=== PATIENT | female | born 1950 | race Caucasian/White ===

== ENCOUNTER 2018-12-13 01:25 | Outpatient (CLI) | payer MEDICARE, SELFPAY ==
[2018-12-13 12:45] LABS: Bilirubin Negative (Negative); Blood Negative (Negative); Clarity Clear (Clear); Glucose Negative (Negative); Ketones Negative (Negative); Leukocyte Esterase Negative (Negative); Nitrite Negative (Negative); Specific Gravity 1.025 (1.005-1.025); Urobilinogen 0.2 EU/dL (Up TO 0.2); pH 5.5 (5-8)
[2018-12-13 14:36] LABS: Hemoglobin A1C 6.6 % (4.5-6.2)
== END 2018-12-13 01:45 ==
DX: E11.9 Type 2 diabetes mellitus without complications (principal); R35.0 Frequency of micturition
CPT/HCPCS: 36415; 81003; 83036

== ENCOUNTER 2018-12-21 07:59 | Outpatient (CLI) | payer MEDICARE, SELFPAY ==
[2018-12-21 15:54] LABS: Abs Immature Grans 0.02 k/cumm (0.0-0.09); Absolute Basophil Count 0.03 k/cumm (0.0-0.2); Absolute Eosinophil Count 0.27 k/cumm (0.0-0.7); Absolute Lymphocyte Count 2.17 k/cumm (1.2-3.4); Absolute Monocyte Count 0.39 k/cumm (0.11-0.7); Absolute Neutrophil Count 5.35 k/cumm (1.2-6.7); Basophils % 0.4; Eosinophils % 3.3; HCT 35.2 % (36.0-46.0); HGB 12.6 g/dL (12.0-15.5); Immature Grans % 0.2; Lymphocytes % 26.4; Mean Corp. HGB Concentration 35.8 g/dL (32.0-36.0); Mean Corpuscular Hemoglobin 30.7 pg (27.0-33.0); Mean Corpuscular Volume 85.6 fL (80-95); Mean Platelet Volume 9.9 fL (8.0-11.0); Monocytes % 4.7; Platelet Count 194 x1000/uL (130-400); RBC 4.11 m/cumm (4.00-5.20); RBC Distribution Width 12.4 % (11.7-14.6); White Blood Cell Count 8.23 k/cumm (4.4-10.8)
[2018-12-21 16:25] LABS: ALT 32 U/L (12-78); AST 27 U/L (15-37); Albumin 3.6 g/dL (3.4-5.0); Alkaline Phosphatase 92 U/L (46-116); Anion Gap 10.2 mmol/L (3-11); BUN 13 mg/dL (7-18); Bilirubin, Total 0.4 mg/dL (0.2-1.0); CO2 26.8 mmol/L (21.0-32.0); CREATININE 1.01 mg/dL (0.55-1.02); Calcium 9.4 mg/dL (8.5-10.1); Chloride 103 mmol/L (98-107); Estimated GFR 54.84 (mL/min/1.73m2); Glucose 218 mg/dL (70-100); Potassium 4.6 mmol/L (3.5-5.1); Sodium 140 mmol/L (136-145); Total Protein 6.7 g/dL (6.4-8.2)
== END 2018-12-21 08:19 ==
DX: Z87.442 Personal history of urinary calculi (principal); I10 Essential (primary) hypertension; N23 Unspecified renal colic; E11.9 Type 2 diabetes mellitus without complications
CPT/HCPCS: 36415; 80053; 85025

== ENCOUNTER 2019-01-25 01:35 | Outpatient (CLI) | payer MEDICARE, SELFPAY ==
--- NOTE | 2019-01-25 08:06 | DI.US_ITS ---
SYMPTOM/DIAGNOSIS: RULE OUT GALLBLADDER ISSUES R10.11, RUQ PAIN ABDOMEN ULTRASOUND: Comparison is made with 19 Jun 2012. The liver again shows mild fatty infiltration. No focal liver lesions or biliary dilatation was seen. The gallbladder has a normal appearance without evidence of stones or wall thickening. The spleen, kidneys, pancreas and aorta are unremarkable. No ascites is seen. IMPRESSION: Mild fatty infiltration of the liver. No gallbladder abnormality is seen.
[2019-01-25 08:41] LABS: Abs Immature Grans 0.02 k/cumm (0.0-0.09); Absolute Basophil Count 0.02 k/cumm (0.0-0.2); Absolute Eosinophil Count 0.23 k/cumm (0.0-0.7); Absolute Lymphocyte Count 1.63 k/cumm (1.2-3.4); Absolute Monocyte Count 0.34 k/cumm (0.11-0.7); Basophils % 0.3; Eosinophils % 2.9; HGB 12.9 g/dL (12.0-15.5); Immature Grans % 0.3; Lymphocytes % 20.5; Mean Corp. HGB Concentration 35.8 g/dL (32.0-36.0); Mean Corpuscular Hemoglobin 30.6 pg (27.0-33.0); Mean Corpuscular Volume 85.5 fL (80-95); Mean Platelet Volume 9.3 fL (8.0-11.0); Monocytes % 4.3; Neutrophils % 71.7; Platelet Count 193 x1000/uL (130-400); RBC 4.21 m/cumm (4.00-5.20); RBC Distribution Width 12.2 % (11.7-14.6); White Blood Cell Count 7.94 k/cumm (4.4-10.8)
[2019-01-25 10:50] LABS: ALT 27 U/L (14-59); AST 25 U/L (15-37); Albumin 3.7 g/dL (3.4-5.0); Alkaline Phosphatase 82 U/L (46-116); BUN 11 mg/dL (7-18); Bilirubin, Total 0.7 mg/dL (0.2-1.0); CREATININE 0.95 mg/dL (0.55-1.02); Calcium 9.2 mg/dL (8.5-10.1); Chloride 103 mmol/L (98-107); Estimated GFR 58.85 (mL/min/1.73m2); Glucose 192 mg/dL (70-100); Potassium 4.8 mmol/L (3.5-5.1); Sodium 141 mmol/L (136-145); Total Protein 6.6 g/dL (6.4-8.2)
== END 2019-01-25 01:55 ==
DX: R10.11 Right upper quadrant pain (principal); K76.0 Fatty (change of) liver, not elsewhere classified; E03.9 Hypothyroidism, unspecified
CPT/HCPCS: 36415; 80053; 76700; 85025

== ENCOUNTER 2019-12-07 19:17 | Emergency (ER) | payer MEDICARE, SELFPAY ==
[2019-12-07 19:24] VITALS: BP 170/67; PULSE 78; RESP 16; TEMP 36.5; O2SAT 98
--- NOTE | 2019-12-07 19:30 | DI.CT_ITS ---
EXAM: CT HEAD CERV SPINE FACIAL WO CLINICAL HISTORY: FALL, DIZZY, LEFT JAW AND NASAL PAIN, R/O FX. TECHNIQUE: Imaging Protocol: Axial computed tomography images with coronal and sagittal reformatted images were created and reviewed COMPARISON: CR LUMBAR SPINE COMPLETE from 06/25/2014 CR RT HIP COMPLETE AP PELVIS from 11/28/2014 FINDINGS: Head CT Ventricles and Extra axial spaces: Normal in size and morphology for the patient's age. Mild to moder ate atrophy. Hemorrhage: None. Cerebral parenchyma: Normal. Midline shift: None. Brainstem/Cerebellum: Normal. Calvarium: Normal. Mild frontal scalp soft tissue swelling. Visualized Paranasal sinuses/Mastoids: Clear. Cervical Spine CT BONES: Vertebral body heights are maintained. Intervertebral disc spaces are normal. Alignment is nor mal. There is no evidence of acute fracture. SOFT TISSUES: No paraspinal hematoma. The airway appears intact. Degenerative disc changes and facet degenerative changes are seen. Facial CT No facial fracture is identified. IMPRESSION: No acute abnormality. RADIATION DOSE DELIVERED: Total DLP DATA REPOSITORY: All CT scans at this facility are submitted to the National Radiology Data Registry (NRDR) Dose Index Registry (DIR) with the [employer] (ACR). RADIATION OPTIMIZATION: All CT scans at this facility use at least one of these dose optimization te chniques: automated exposure control; mA and/or kV adjustment per patient size (includes targeted exa ms where dose is matched to clinical indication); or iterative reconstruction.
--- NOTE | 2019-12-07 19:44 | W.ED.GENAD ---
Discharge Plan Disposition Patient Disposition: HOME Discharge Details Chief Complaint: Trauma Clinical Impression: Closed head injury, Acute whiplash injury Primary Care Provider: Tangela Erazo ED Provider: Kendy Tao Home Meds and New Rx's Prescriptions: Continued Lantus Solostar U-100 Insulin 100 unit/mL (3 mL) insulin pen 18 unit subcut HS Qty: 3 RF: 3 (DME) lancets [FreeStyle Lancets] 28 gauge misc 1 ea Sub-Q TID Qty: 300 RF: 3 glipizide [Glucotrol] 10 mg tablet 5 mg PO BID Qty: 180 RF: 4 (DME) FreeStyle Lite Strips 1 EACH strip 1 ea Miscellaneous TID Qty: 300 RF: 4 gabapentin 300 MG capsule 300 mg PO HS PRNQty: 90 RF: 1 (DME) blood-glucose meter [FreeStyle Lite Meter] 1 EACH kit 1 ea Miscellaneous DIRECTED Qty: 1 RF: 0 (DME) pen needle, diabetic 31 gauge x 1/3 needle 1 ndl Sub-Q DAILY Qty: 100 RF: 4 escitalopram oxalate 20 mg tablet 20 mg PO DAILY Qty: 90 RF: 3 escitalopram oxalate 10 mg tablet 10 mg PO DAILY Qty: 90 RF: 3 ibuprofen 800 mg tablet 800 mg PO BID prn Qty: 100 RF: 4 lamotrigine 100 mg tablet 100 mg PO DAILY Qty: 90 RF: 4 lamotrigine 50 mg tablet extended release 24hr 50 mg PO DAILY Qty: 90 RF: 4 metformin 1,000 mg tablet 1,000 mg PO BID Qty: 240 RF: 12 tramadol 50 mg tablet 50 mg PO Q6H PRN Qty: 60 RF: 0 losartan 100 mg tablet 100 mg PO DAILY Qty: 90 RF: 3 Discharge Instructions Instructions: Head Injury (ED), Cervical Sprain (ED) Additional Instructions: Take your gabapentin and tramadol as previously prescribed when you get home. You will be sore for the next 2 to 3 days. Return immediately to the ER for any worsening headache, visual disturbance, pain not relieved by medications, confusion, weakness numbness in your face or weakness on one side of your body. Follow up with primary care provider in 3-5 days. Return to ED sooner if any worsening or concerns. Increase oral fluids. Please take Tylenol or Ibuprofen with food every 4-6 hours as needed for pain and swelling. Alternate ice and heat to shoulders. CT of your neck at this time show degenerative changes. Referrals: Tangela Erazo NP [Primary Care Provider] - Discharge Data Discharge Date/Time-TO BE ENTERED AT DEPARTURE: 12/07/19 21:45 Medical Decision Making At this time CT head neck and facial bones ordered without contrast to rule out fracture versus intracranial mass hemorrhage, Zofran 4 mg ODT and 5 mg Tylenol p.o. ordered. TECHNIQUE: Imaging protocol: Computed tomography images of the face without contrast. COMPARISON: No relevant prior studies available. FINDINGS: Orbits: Orbits are normal. Globes are unremarkable. Bones/joints: No acute fracture. Sinuses: Normal. No air-fluid levels. Soft tissues: Mild frontal scalp soft tissue swelling partially visualized. IMPRESSION: 1. Mild frontal scalp soft tissue swelling partially visualized. 2. Negative for acute skeletal pathology. Thank you for allowing us to participate in the care of your patient. Dictated and Authenticated by: Chris Lee MD 12/07/2019 9:09 PM Eastern Time ([place] & [place]) CT C-spine shows multilevel degenerative changes of the vertebra present endplate sclerosis and multilevel posterior disc osteophyte complexes no acute bleed displaced fracture or dislocation. Impression is negative for acute skeletal pathology. Discussed CT results with patient, verbalized understanding. She is still complaining of mild to moderate headache at this time she does take tramadol gabapentin at home encouraged her to take that when she gets home for the pain and her muscle relaxant. At this time I do feel it is mostly whiplash and mild concussion. Discussed strict return instructions and red flags with patient, verbalized understanding. HPI General Mode of arrival: ambulatory. Date/Time Provider Initiated Documentation: 12/07/19 19:33. Limitations to Documentation: no limitations. Information obtained by: patient. HPI Narrative: 69-year-old female presents to the ER with a chief complaint of head and neck pain after a mechanical fall which occurred proximately 1 hour prior to arrival. Patient was walking [place] tripped on a rock fell forward hitting her head on another rock. She denies any loss of consciousness on the scene. She did sit there for a while with ice on her head. Upon her presentation she is complaining of nausea, mild dizziness, increased pain to her head with position changes, left jaw pain, left zygomatic process pain, and nasal tenderness with palpation. No obvious facial deformities spelt or visualized.. She does have a superficial abrasion noted to her frontal scalp, small superficial abrasion noted to her left cheek, and a small superficial abrasion noted to her left lower forearm. She reports her pain 5 out of 10 currently. No vomiting. Pupils are equal bilaterally. Related Data Home Medications Medication Instructions Recorded Confirmed FreeStyle Lite Strips #300 strip 03/15/15 03/19/19 gabapentin 300 mg PO HS PRN #90 tab-cap 01/02/17 03/19/19 blood-glucose meter [FreeStyle #1 kit 06/01/17 03/19/19 Lite Meter] insulin glargine 100 unit/mL (3 18 unit SUBCUT HS #3 pen 05/21/18 03/19/19 mL) subcutaneous pen lancets 28 gauge #300 ea 05/21/18 03/19/19 pen needle, diabetic 31 gauge x #100 ndl 06/15/18 03/19/1905/17 escitalopram oxalate 10 mg tablet 10 mg PO DAILY #90 tab 09/13/18 03/19/19 escitalopram oxalate 20 mg tablet 20 mg PO DAILY #90 tab 09/13/18 03/19/19 ibuprofen 800 mg tablet 800 mg PO BID prn #100 tab-cap 11/07/18 03/19/19 glipizide 10 mg tablet 5 mg PO BID #180 tab 06/04/19 06/04/19 lamotrigine 100 mg tablet 100 mg PO DAILY #90 tab-cap 08/28/19 lamotrigine 50 mg tablet,extended 50 mg PO DAILY #90 tab 08/28/19 release 24 hr metformin 1,000 mg tablet 1,000 mg PO BID #240 tab 09/30/19 tramadol 50 mg tablet 50 mg PO Q6H PRN #60 tab-cap 11/05/19 losartan 100 mg tablet 100 mg PO DAILY #90 tab-cap 11/28/19 Previous Rx's Medication Instructions Recorded blood-glucose meter [FreeStyle #1 kit 06/01/17 Lite Meter] insulin glargine 100 unit/mL (3 18 unit SUBCUT HS #3 pen 05/21/18 mL) subcutaneous pen lancets 28 gauge #300 ea 05/21/18 pen needle, diabetic 31 gauge x #100 ndl 06/15/1805/17 escitalopram oxalate 10 mg tablet 10 mg PO DAILY #90 tab 09/13/18 escitalopram oxalate 20 mg tablet 20 mg PO DAILY #90 tab 09/13/18 ibuprofen 800 mg tablet 800 mg PO BID prn #100 tab-cap 11/07/18 glipizide 10 mg tablet 5 mg PO BID #180 tab 06/04/19 lamotrigine 100 mg tablet 100 mg PO DAILY #90 tab-cap 08/28/19 lamotrigine 50 mg tablet,extended 50 mg PO DAILY #90 tab 08/28/19 release 24 hr metformin 1,000 mg tablet 1,000 mg PO BID #240 tab 09/30/19 tramadol 50 mg tablet 50 mg PO Q6H PRN #60 tab-cap 11/05/19 losartan 100 mg tablet 100 mg PO DAILY #90 tab-cap 11/28/19 Allergies Allergy/AdvReac Type Severity Reaction Status Date / Time lisinopril AdvReac cough Verified 12/07/19 19:28 General Stated Complaint: Trauma TOBY: 3 Review of Systems Narrative: Constitutional: Negative for weight loss, alert and oriented, well groomed, normal body habitus, appears uncomfortable. HEENT: Denies nasal discharge, sore throat, trouble swallowing. Complaining of headache, nausea, mild dizziness. See HPI, complaining of left cheek nose pain. Chest: Denies chest pain, palpitations, irregular rhythm, hypertension. Respiratory: Denies Shortness of breath, cough, hemoptysis. GI: Denies abdominal pain, vomiting, diarrhea, constipation. : Denies dysuria, hematuria, flank pain, rectal bleeding. Neuro: Denies blurry vision, weakness, syncope, or facial numbness. Hematologic: Denies easy bruising, intolerance to heat or cold, hair loss. [facility] [place] Medical History Anemia, iron deficiency (Chronic 04/22/14) Chronic pain disorder (Chronic 02/06/17) CONTROLLED SUBSTANCE AGREEMENT 02/06/17 Depressive disorder (Chronic) Diabetes mellitus (Chronic 03/13/15) Essential hypertension (Chronic 03/20/13) Hernia of anterior abdominal wall (Chronic 05/23/17) Hyperlipidemia (Chronic 09/06/12) Kidney stone (Chronic) August [address] at [facility] [place]: 2 non-obstructing stone in the right kidney Knee pain (Chronic) left, DJD (08/27 [facility] [place] ortho eval, needs TKR) 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) Obesity (BMI 30-39.9) (Chronic 11/04/15) Pain of left thigh (Chronic 06/01/17) Palpitations (Chronic 11/27/14) 11/26 Holter, multiple PACs Peptic reflux disease (Chronic) Primary fibromyalgia syndrome (Chronic) fibromyalgia Right hip pain (Chronic 03/13/15) DJD, s/p THR [facility] [place] 04/28 Shoulder pain (Chronic 11/04/15) Surgical History HIP REPLACEMENT [facility] [place]; PARTIAL Hysterectomy, Laproscopic DUB; has cervix and ovaries Ligation of fallopian tube Family History Mother , AGE 82 Diabetes Essential hypertension Heart disease Hyperlipidemia Cancer Father , AGE 80 Alcohol abuse Essential hypertension Heart disease Sister , AGE 45 Breast cancer Sister , AGE 51 Colon cancer Brother Neoplasm Son Essential hypertension Maternal Grandmother Breast cancer Other Family hx of colon cancer Family hx-breast malignancy Social History Smoking/Tobacco Use Status: Never Alcohol Intake: current Alcohol Intake frequency: 0-2 drinks per day Drug use: Never Substance use type: does not use Caregiver/Support person: No Household members: spouse and children Number of Children: 3 number of grandchildren: 7 Pets and animals: Yes Pets and animals: cat(s), dog(s) and bird(s) Sexually active: No Do you think of yourself as: straight/heterosexual Current gender identity: female Duration: < 15 minutes/day Frequency: 1-2 times per week Marlin/Anabaptism: Episcopalian Special marlin needs: No Seatbelt use: always 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 Appears stated age. Normal body habitus. Head: Normocephalic, no trauma. Eyes: Pupils PERRLA, Red reflex noted, EOM's intact. Eyelids symmetrical without lesions, discharge, or swelling. ENT: Bilateral TM's WNL, no hemotympanum bilaterally, external ear normal to inspection, no mastoid TTP, swelling, or erythema, Nasal turbinates WNL, no nasal discharge no evidence of epistaxis or septal hematoma,. Normal dentition, dentition intact, posterior pharynx WNL, no exudate. Chest: RRR, Normal S1, S2, distal pulses intact. Resp: Lungs clear to auscultation bilaterally, no wheezes, rales, or rhonchi. Musculoskeletal: Normal gait, 5/5 strength to all four extremities. Skin: Has a superficial abrasion noted to the frontal scalp, small superficial abrasion noted to left cheek, small superficial abrasion noted to the left forearm. Capillary refill less than 2 sec. Neurologic: Cranial nerves II-XII intact. Alert and oriented x 3. DTR's intact. Hematologic/Lymphatic: No ecchymosis, no lymphadenopathy. Course Vital Signs Vital signs: Vital Signs Temperature 36.5 C 12/07/19 19:24 Pulse 78 12/07/19 19:24 Respiratory Rate 16 12/07/19 19:24 Blood Pressure 170/67 H 12/07/19 19:24 Pulse Oximetry 98 12/07/19 19:24 Temperature 36.5 C 12/07/19 19:24 Temperature Source Skin 12/07/19 19:24 Pulse 78 12/07/19 19:24 Respiratory Rate 16 12/07/19 19:24 Respiratory Effort Non-Labored 12/07/19 19:31 Respiratory Depth Normal 12/07/19 19:31 Respiratory Pattern Normal 12/07/19 19:31 Blood Pressure 170/67 H 12/07/19 19:24 Pulse Oximetry 98 12/07/19 19:24 Pain Level 5 12/07/19 19:31
[2019-12-07] MEDS: Ondansetron O.D.T. 4 MG TABEF PO (19:48)
[2019-12-07] MEDS: Acetaminophen 500 MG TAB PO (19:48)
--- NOTE | 2019-12-07 20:36 | DI.VRAD_ITS ---
PROCEDURE INFORMATION: Exam: CT Maxillofacial Without Contrast Exam date and time: 12/07/2019 7:44 PM Age: 69 years old Clinical indication: Injury or trauma; Fall TECHNIQUE: Imaging protocol: Computed tomography images of the face without contrast. COMPARISON: No relevant prior studies available. FINDINGS: Orbits: Orbits are normal. Globes are unremarkable. Bones/joints: No acute fracture. Sinuses: Normal. No air-fluid levels. Soft tissues: Mild frontal scalp soft tissue swelling partially visualized. IMPRESSION: 1. Mild frontal scalp soft tissue swelling partially visualized. 2. Negative for acute skeletal pathology. Dictated and Authenticated by: Chris Bender MD. Ordering:ERIKA Larry MD
[2019-12-07 21:39] VITALS: BP 125/52; PULSE 70; RESP 16; O2SAT 97
== END 2019-12-07 21:45 | disposition home or self-care (01) ==
PROVIDERS: Emergency Provider Registered Nurse Emergency
DX: S09.90XA Unspecified injury of head, initial encounter (principal); S13.4XXA Sprain of ligaments of cervical spine, initial encounter; W01.198A Fall on same level from slipping, tripping and stumbling with subsequent striking against other object, initial encounter; R51 Headache; R42 Dizziness and giddiness; E11.9 Type 2 diabetes mellitus without complications; Z79.84 Long term (current) use of oral hypoglycemic drugs; I10 Essential (primary) hypertension
CPT/HCPCS: 36416; 82962; 99284; 70450; 70486; 72125; L0172

== ENCOUNTER 2020-05-27 04:19 | Outpatient (CLI) | payer MEDICARE, SELFPAY ==
[2020-05-28 15:10] LABS: COVID-19 RT-PCR UVMMC Result Negative (Negative)
== END 2020-05-27 04:39 ==
DX: Z20.822 Contact with and (suspected) exposure to COVID-19 (principal)
CPT/HCPCS: U0003

== ENCOUNTER 2020-09-10 02:04 | Outpatient (CLI) | payer MEDICARE, SELFPAY ==
[2020-09-10 12:50] LABS: Bilirubin Negative (Negative); Blood Negative (Negative); Clarity Clear (Clear); Glucose Negative (Negative); Ketones Negative (Negative); Leukocyte Esterase Negative (Negative); Nitrite Negative (Negative); Specific Gravity 1.025 (1.005-1.025); Urobilinogen 0.2 EU/dL (Up TO 0.2)
[2020-09-10 13:00] LABS: Bacteria Negative HPF (Negative); C & S Indicated? No; Casts Negative LPF (Negative); Crystals Negative HPF (Negative); Epithelial Cells Few HPF (Negative); Hemoglobin A1C 6.9 % (<5.7); Mucus Negative (Negative); RBC 0-2 HPF (0-2)
[2020-09-10 13:03] LABS: ALT 32 U/L (14-59); AST 23 U/L (15-37); Albumin 3.8 g/dL (3.4-5.0); Alkaline Phosphatase 92 U/L (46-116); Anion Gap 9.4 mmol/L (3-11); BUN 17 mg/dL (7-18); Bilirubin, Total 0.6 mg/dL (0.2-1.0); CO2 27.6 mmol/L (21.0-32.0); Calcium 9.3 mg/dL (8.5-10.1); Calculated LDL 113 mg/dL (<100); Chloride 106 mmol/L (98-107); Cholesterol 213 mg/dL (<200); Glucose 177 mg/dL (74-106); HDL Cholesterol 83 mg/dL (40-60); Potassium 4.9 mmol/L (3.5-5.1); Sodium 143 mmol/L (136-145); Total Protein 6.8 g/dL (6.4-8.2); Triglyceride 87 mg/dL (<150)
== END 2020-09-10 02:05 | disposition home or self-care (01) ==
LOC: LOS 02:05
DX: E03.9 Hypothyroidism, unspecified (principal); E11.22 Type 2 diabetes mellitus with diabetic chronic kidney disease; E78.2 Mixed hyperlipidemia; G89.4 Chronic pain syndrome; R31.9 Hematuria, unspecified; N18.2 Chronic kidney disease, stage 2 (mild); Z79.4 Long term (current) use of insulin; M54.41 Lumbago with sciatica, right side; E66.9 Obesity, unspecified; K21.9 Gastro-esophageal reflux disease without esophagitis; I10 Essential (primary) hypertension
CPT/HCPCS: 36415; 80053; 80061; 81003; 81015; 83036

== ENCOUNTER 2020-11-04 15:02 | Outpatient (REF) | payer MEDICARE, SELFPAY ==
[2020-11-04 17:52] LABS: Abs Immature Grans 0.03 10^3/uL (0.0-0.06); Absolute Basophil Count 0.03 10^3/uL (0.0-0.2); Absolute Eosinophil Count 0.39 10^3/uL (0.0-0.7); Absolute Lymphocyte Count 1.89 10^3/uL (1.2-3.4); Absolute Monocyte Count 0.38 10^3/uL (0.1-0.8); Absolute Neutrophil Count 5.82 10^3/uL (1.2-6.7); Basophils % 0.4; Eosinophils % 4.6; HCT 37.1 % (36.0-46.0); HGB 12.8 g/dL (11.2-15.7); Immature Grans % 0.4; Lymphocytes % 22.1; MCH 30.1 pg (27.0-33.0); MCHC 34.5 % (32.0-36.0); MCV 87.3 fL (80-95); Monocytes % 4.4; Neutrophils % 68.1; Nucleated RBC 0 %; Platelet Count 210 10^3/uL (130-400); RBC 4.25 10^6/uL (3.93-5.22); RDW-SD 38.4 fL; WBC 8.54 10^3/uL (4.4-10.8)
[2020-11-04 17:57] LABS: ALT 26 U/L (14-59); AST 22 U/L (15-37); Albumin 3.8 g/dL (3.4-5.0); Alkaline Phosphatase 107 U/L (46-116); Anion Gap 10.4 mmol/L (3-11); BUN 14 mg/dL (7-18); Bilirubin, Total 0.6 mg/dL (0.2-1.0); CO2 27.6 mmol/L (21.0-32.0); Calcium 9.7 mg/dL (8.5-10.1); Chloride 103 mmol/L (98-107); Glucose 261 mg/dL (74-106); Potassium 4.9 mmol/L (3.5-5.1); Sodium 141 mmol/L (136-145); Total Protein 6.9 g/dL (6.4-8.2)
== END 2020-11-04 15:03 | disposition home or self-care (01) ==
LOC: LBN 15:02
PROVIDERS: Visit Provider Physician Assistant
DX: N39.0 Urinary tract infection, site not specified (principal); R10.31 Right lower quadrant pain
CPT/HCPCS: 80053; 85025; 87086

== ENCOUNTER 2021-02-03 18:23 | Outpatient (REF) | payer MEDICARE, SELFPAY ==
[2021-02-05 10:53] LABS: COVID-19 RT-PCR UVMMC Result Negative (Negative)
== END 2021-02-03 18:24 | disposition home or self-care (01) ==
LOC: LBN 18:23
PROVIDERS: Visit Provider Nurse Practitioner Family
DX: J02.9 Acute pharyngitis, unspecified (principal)
CPT/HCPCS: U0003; U0005; 87070

== ENCOUNTER 2021-02-26 01:08 | Outpatient (CLI) | payer MEDICARE, SELFPAY ==
[2021-02-26 12:59] LABS: Hemoglobin A1C 6.3 % (<5.7)
== END 2021-02-26 01:09 | disposition home or self-care (01) ==
LOC: LOS 01:08
DX: E11.22 Type 2 diabetes mellitus with diabetic chronic kidney disease (principal); N18.2 Chronic kidney disease, stage 2 (mild); Z79.4 Long term (current) use of insulin
CPT/HCPCS: 36415; 83036

== ENCOUNTER 2022-04-22 01:23 | Outpatient (CLI) | payer MEDICARE, SELFPAY ==
[2022-04-22 13:14] LABS: ALT 23 U/L (14-59); AST 28 U/L (15-37); Albumin 3.8 g/dL (3.4-5.0); Alkaline Phosphatase 100 U/L (46-116); Anion Gap 8.8 mmol/L (3-11); BUN 22 mg/dL (7-18); Bilirubin, Total 0.7 mg/dL (0.2-1.0); CO2 28.2 mmol/L (21.0-32.0); CREATININE 1.3 mg/dL (0.55-1.02); Calcium 10.1 mg/dL (8.5-10.1); Calculated LDL 143 mg/dL (<100); Chloride 101 mmol/L (98-107); Cholesterol 252 mg/dL (<200); Estimated GFR 44.51 (mL/min/1.73m2); Glucose 202 mg/dL (74-106); HDL Cholesterol 89 mg/dL (40-60); Potassium 4.5 mmol/L (3.5-5.1); Sodium 138 mmol/L (136-145); Total Protein 7.2 g/dL (6.4-8.2); Triglyceride 101 mg/dL (<150)
== END 2022-04-22 01:24 | disposition home or self-care (01) ==
LOC: LOS 01:23
PROVIDERS: PCP Nurse Practitioner Family
DX: E66.9 Obesity, unspecified (principal); E78.5 Hyperlipidemia, unspecified; I10 Essential (primary) hypertension
CPT/HCPCS: 36415; 80053; 80061

== ENCOUNTER 2022-08-12 06:56 | Day surgery (SDC) | payer MEDICARE, SELFPAY ==
--- NOTE | 2022-08-12 07:12 | W.PREOPHP ---
Assessment and Plan Assessment and plan (1) Nuclear age-related cataract, left eye: Status: Acute Assessment and plan: Assessment: Visually significant cataract of the left eye. Plan: Cataract extraction with lens implantation of the left eye. (2) Cortical age-related cataract, left eye: Status: Acute Assessment and plan: Assessment: Visually significant cataract of the left eye. Plan: Cataract extraction with lens implantation of the left eye. (3) Cortical age-related cataract, right eye: Status: Acute Assessment and plan: Assessment: Visually significant cataract of the right eye. Plan: Cataract extraction with lens implantation of the right eye. (4) Nuclear age-related cataract, right eye: Status: Acute Assessment and plan: Assessment: Visually significant cataract of the right eye. Plan: Cataract extraction with lens implantation of the right eye. History of Present Illness History of Present Illness Chief Complaint: Progressive decreased vision, both eyes Narrative: The patient is a 70-year-old lady with history of progressive decreased vision in both eyes at both distance and near. She can no longer wear her glasses because they do not work anymore. She is using a magnifier to read. She has significant difficulty seeing road signs and has severe glare from bright lights at night. Review of Systems All systems reviewed & are unremarkable except as noted in HPI and below PFSH All Active Problems (Updated 08/12/22 @ 07:18 by Clarence Richter MD) Nuclear age-related cataract, right eye (Acute) Cortical age-related cataract, right eye (Acute) Cortical age-related cataract, left eye (Acute) Nuclear age-related cataract, left eye (Acute) Diabetes mellitus (Chronic 03/13/15) Essential hypertension (Chronic 03/20/13) Right hip pain (Chronic 03/13/15) DJD, s/p THR [facility] [place] [place] 04/28 Primary fibromyalgia syndrome (Chronic) fibromyalgia Palpitations (Chronic 11/27/14) 11/26 Holter, multiple PACs Obesity (BMI 30-39.9) (Chronic 11/04/15) 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 pole cyst in the LEFT kidney * Echogenic foci through out both kidneys: indeterminant but may be vascular calcification *Bladder is normal Hyperlipidemia (Chronic 09/06/12) Hernia of anterior abdominal wall (Chronic 05/23/17) Family hx-breast malignancy (Chronic) Family hx of colon cancer (Chronic) Depressive disorder (Chronic) Anemia, iron deficiency (Chronic 04/22/14) Transaminasemia (Acute 04/13/02) Right upper quadrant pain (Chronic) intermittent Pilonidal cyst without abscess (Acute 04/18/13) Mucous polyp of cervix (Acute) Mild nonproliferative diabetic retinopathy (Acute 04/23/14) GERD without esophagitis (Chronic) [id number]. Off Omeprazole for months, symptoms returned. Omeprazole 20mg PRN re-started. Low back pain potentially associated with radiculopathy (Acute) Cataract (Chronic) Nuclear sclerotic cataract of right eye (Acute) Cortical cataract of right eye (Acute) Dysphagia (Acute) Epigastric abdominal pain (Acute) Medical History Chronic pain disorder (02/06/17) Pain of left thigh (06/01/17) Paronychia of great toe of left foot Peptic reflux disease Shoulder pain (11/04/15) Surgical History HIP REPLACEMENT [facility] [place] [place]; PARTIAL Hysterectomy, Laproscopic DUB; has cervix and ovaries Ligation of fallopian tube Family History Mother , AGE 82 Diabetes Essential hypertension Heart disease Hyperlipidemia Cancer Father , AGE 80 Alcohol abuse Essential hypertension Heart disease Sister , AGE 45 Breast cancer Sister , AGE 51 Colon cancer Brother , 30 Neoplasm Son Essential hypertension Maternal Grandmother , 93 Breast cancer Son No problems noted. Daughter No problems noted. Other Family hx of colon cancer Family hx-breast malignancy Social History Smoking/Tobacco Use Status: Never Second Hand Exposure: Yes Smoking risk assessment performed?: Yes Alcohol Intake: current Alcohol Intake frequency: holidays/special occasions only Drug use: Never Substance use type: does not use Counseling given: No Counseling provided: none Caregiver/Support person: No Household members: significant other Housing: house Number of Children: 3 number of grandchildren: 7 Communication Needs: None Do you need help understanding health information?: Rarely Pets and animals: Yes Pets and animals: cat(s) and dog(s) Sexually active: No Do you think of yourself as: straight/heterosexual Current gender identity: female What is your relationship status?: How often do you talk on the phone with friends or family?: three or more times per week How often do you get together with friends or relatives?: decline to answer How often do you attend judaism or taoist services?: decline to answer Do you belong to any clubs or organized social groups?: no Panel score (0-1 are the most socially isolated patients): 2 What type of physical activity do you participate in: decline to answer Duration: decline to answer Frequency: decline to answer Marlin/Jewish: No preference Special marlin needs: No Seatbelt use: always Helmet use: No Drive intox or 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 Working smoke detector in home: Yes Carbon monox detector in home: Yes Firearms in home: Yes Firearms unloaded and locked: Yes Do you feel safe at home: Yes Do you feel safe in your relationship?: Yes Meds Allergies and Home Medications Allergies Allergy/AdvReac Type Severity Reaction Status Date / Time lisinopril AdvReac cough Verified 08/12/22 07:13 Home Medications Medication Instructions Recorded Confirmed Type gabapentin 300 mg capsule 300 mg PO HS PRN #90 tab-caps 01/02/17 08/11/22 History blood-glucose meter (FreeStyle ##1 06/01/17 08/11/22 Rx Lite Meter kit) pen needle, diabetic 31 gauge x ##100 06/15/18 08/11/22 Rx 1/3 cyclobenzaprine 5 mg tablet 5 mg PO QHS PRN muscle spasm #60 01/12/22 08/11/22 Rx tabs blood sugar diagnostic (FreeStyle #300 strips 03/25/22 08/11/22 Rx Lite Strips) duloxetine 60 mg capsule,delayed 60 mg PO DAILY #90 caps 03/25/22 08/12/22 Rx release escitalopram oxalate 20 mg tablet 20 mg PO DAILY #90 tabs 03/25/22 08/12/22 Rx glipizide 10 mg tablet 5 mg PO BID #180 tabs 03/25/22 08/12/22 Rx ibuprofen 800 mg tablet 800 mg PO BID prn #100 tab-caps 03/25/22 08/11/22 Rx insulin glargine 100 unit/mL (3 18 unit (0.18 mL) subcut HS #3 pens 03/25/22 08/12/22 Rx mL) subcutaneous pen (Lantus Solostar U-100 Insulin) lancets 28 gauge (FreeStyle #300 ea 03/25/22 08/11/22 Rx Lancets) losartan 100 mg tablet 100 mg PO DAILY #90 tab-caps 03/25/22 08/12/22 Rx lamotrigine 100 mg tablet 100 mg PO DAILY #90 tab-caps 03/26/22 08/12/22 Rx lamotrigine 50 mg tablet,extended 50 mg PO DAILY #90 tabs 03/26/22 08/12/22 Rx release 24 hr tramadol 50 mg tablet 50 mg PO Q6H PRN pain #28 tab-caps 05/13/22 08/12/22 Rx amlodipine 5 mg tablet 5 mg PO DAILY #90 tabs 05/30/22 08/12/22 Rx rosuvastatin 10 mg tablet (Crestor) 10 mg PO DAILY #90 tabs 05/30/22 08/12/22 Rx metformin 1,000 mg tablet 1,000 mg PO BID Diabetes #180 tabs 06/15/22 08/12/22 Rx omeprazole 20 mg capsule,delayed 20 mg PO BID PRN heartburn #90 caps 07/05/22 08/12/22 Rx release Exam Eyes Other: Most recent ocular examination revealed uncorrected visual acuity of 20/50 OD, 20/40 OS. Pupil exam was normal. Intraocular pressure was 16 OD, 16 OS. Extraocular motility is normal. Slit-lamp examination is significant for pupils dilating to 7 mm OU. 2+ nuclear and 2+ cortical cataract are present OU. Funduscopic examination reveals disc cupping of 0.2 OU with normal vessels, macula, peripheral retina and vitreous. Cardio Rate: regular rate Rhythm: regular rhythm
[2022-08-12 07:17] VITALS: BP 155/74; PULSE 85; RESP 16; TEMP 36.4; O2SAT 99
[2022-08-12] MEDS: Tropicam./Phenyleph. (1/2.5%) 5 ML BTL OS ×3 (07:24→07:35)
--- NOTE | 2022-08-12 07:33 | W.ANESPRE ---
General Info Date of Service Date Performed: 08/12/22 Height: 5 ft 4 in Weight: 91.4 kg Body Mass Index (BMI): 34.5 Surgical Procedure: Operation Date: 08/12/22 08:40 Proposed Procedure Side Surgeon p Cataract Extraction with IOL Implant Left Clarence Richter MD Meds Allergies and Home Medications Allergies Allergy/AdvReac Type Severity Reaction Status Date / Time lisinopril AdvReac cough Verified 08/12/22 07:13 Home Medication Medication Instructions Recorded gabapentin 300 mg capsule 300 mg PO HS PRN #90 tab-caps 01/02/17 blood-glucose meter (FreeStyle ##1 06/01/17 Lite Meter kit) pen needle, diabetic 31 gauge x ##100 06/15/1805/17 cyclobenzaprine 5 mg tablet 5 mg PO QHS PRN muscle spasm #60 01/12/22 tabs blood sugar diagnostic (FreeStyle #300 strips 03/25/22 Lite Strips) duloxetine 60 mg capsule,delayed 60 mg PO DAILY #90 caps 03/25/22 release escitalopram oxalate 20 mg tablet 20 mg PO DAILY #90 tabs 03/25/22 glipizide 10 mg tablet 5 mg PO BID #180 tabs 03/25/22 ibuprofen 800 mg tablet 800 mg PO BID prn #100 tab-caps 03/25/22 insulin glargine 100 unit/mL (3 18 unit (0.18 mL) subcut HS #3 pens 03/25/22 mL) subcutaneous pen (Lantus Solostar U-100 Insulin) lancets 28 gauge (FreeStyle #300 ea 03/25/22 Lancets) losartan 100 mg tablet 100 mg PO DAILY #90 tab-caps 03/25/22 lamotrigine 100 mg tablet 100 mg PO DAILY #90 tab-caps 03/26/22 lamotrigine 50 mg tablet,extended 50 mg PO DAILY #90 tabs 03/26/22 release 24 hr tramadol 50 mg tablet 50 mg PO Q6H PRN pain #28 tab-caps 05/13/22 amlodipine 5 mg tablet 5 mg PO DAILY #90 tabs 05/30/22 rosuvastatin 10 mg tablet (Crestor) 10 mg PO DAILY #90 tabs 05/30/22 metformin 1,000 mg tablet 1,000 mg PO BID Diabetes #180 tabs 06/15/22 omeprazole 20 mg capsule,delayed 20 mg PO BID PRN heartburn #90 caps 07/05/22 release Current Visit Medications: Current Medications Generic Name Dose Route Start Last Admin Trade Name Jarodq PRN Reason Stop Dose Admin Acetaminophen 1,000 mg 08/12/22 06:00 Acetaminophen 500 Mg Tab PO Q4H PRN PRN Miscellaneous Medication 0 ml 08/12/22 06:00 08/12/22 07:29 Tropicam./Phenyleph. (1/2.5%) 5 Ml Btl OS 1 drp DIRECTED ILIANA Administration Miscellaneous Medication 0 ml 08/12/22 06:00 Prednisolone 1%, Moxifloxacin 0.5%, Nepafenac 0.1% 5ml Btl OS DIRECTED ILIANA Tetracaine HCl 0 ml 08/12/22 06:00 Tetracaine 0.5% 4 Ml Btl OS DIRECTED ILIANA PFSH Active Problems Active Problems: Problem Status Onset Code Nuclear age-related cataract, right eye H25.11 Cortical age-related cataract, right eye H25.011 Cortical age-related cataract, left eye H25.012 Nuclear age-related cataract, left eye H25.12 Diabetes mellitus 03/13/15 E11.9 Essential hypertension 03/20/13 I10 Right hip pain 03/13/15 M25.551 Primary fibromyalgia syndrome M79.7 Palpitations 11/27/14 R00.2 Obesity (BMI 30-39.9) 11/04/15 E66.9 Low back pain with right-sided sciatica M54.41 Knee pain M25.569 Kidney stone N20.0 Hyperlipidemia 09/06/12 E78.5 Hernia of anterior abdominal wall 05/23/17 K43.9 Family hx-breast malignancy Z80.3 Family hx of colon cancer Z80.0 Depressive disorder F32.9 Anemia, iron deficiency 04/22/14 D50.9 Transaminasemia 04/13/02 R74.0 Right upper quadrant pain R10.11 Pilonidal cyst without abscess 04/18/13 L05.91 Mucous polyp of cervix N84.1 Mild nonproliferative diabetic retinopathy 04/23/14 E11.3299 GERD without esophagitis K21.9 Low back pain potentially associated with radiculopathy M54.50 Cataract H26.9 Nuclear sclerotic cataract of right eye H25.11 Cortical cataract of right eye H26.9 Dysphagia R13.10 Epigastric abdominal pain R10.13 Medical History Medical History Chronic pain disorder (02/06/17) Pain of left thigh (06/01/17) Paronychia of great toe of left foot Peptic reflux disease Shoulder pain (11/04/15) Surgical History Surgical History HIP REPLACEMENT [facility] [place]; PARTIAL Hysterectomy, Laproscopic DUB; has cervix and ovaries Ligation of fallopian tube Tobacco Smoking/Tobacco Use Status: Never Passive smoking exposure: Yes Second hand exposure: Yes Alcohol Alcohol Intake: current Alcohol intake frequency: holidays/special occasions only Substance Use Substance use: Never Substance use type: does not use Counseling provided: none Vital Signs and Lab Results Vital Signs Most Recent Vital Signs in EMR: Most Recent Vital Signs Temp Pulse Resp BP Pulse Ox 36.4 C L 85 16 155/74 H 99 08/12/22 07:17 08/12/22 07:17 08/12/22 07:17 08/12/22 07:17 08/12/22 07:17 Point of Care Results Point of Care Results: Finger Stick Blood Glucose 192 08/12/22 07:13 Lab Results Blood Type / Crossmatch: No Data to Display Complete Blood Count: No Data to Display Complete Metabolic Panel: No Data to Display Liver Function Panel: No Data to Display Coagulation Panel: No Data to Display Cardiac Panel: No Data to Display Arterial Blood Gas: No Data to Display Venous Blood Gas: No Data to Display Pancreas Panel: No Data to Display Thyroid Panel: No Data to Display Infectious Disease: No Data to Display Blood Cultures: No Data to Display Toxicology Panel: No Data to Display Anesthesia Assessment and Plan Anesthesia History Personal History: No History of Anesthesia Complications Family History: No Family History of Anesthesia Complications Exercise Tolerance Exercise Tolerance: Metabolic Equivalents>4 Pertinent Negatives Pertinent Negatives: No Symptoms of GERD, No Major Cardiovascular Symptoms or Complaints and No Major Pulmonary Symptoms or Complaints Cardiac & Pulmonary Exam Cardiac Exam: Normal S1/S2 Heart Sounds Pulmonary Exam: Clear Bilateral Breath Sounds Implantable Cardiac Device Does patient have a Pacemaker or an ICD?: No Airway Exam Known Difficult Airway: No Mallampati Class: 1 Mouth Opening: Normal (> 3cm) Thyromental Distance: Greater than 3 cm Neck Range of Motion: Full ROM Neck Circumference: Normal Teeth Condition: Removable Dentures/Plates Upper and Removable Dentures/Plates Lower ASA Classification ASA Score: ASA 3 Emergency Case?: No NPO Status NPO Status: NPO Clears >2 hours, Solids >8 hours Anesthesia Plan Resuscitation Status: Full Code Anesthesia Technique: MAC Anesthesia Airway Planned: Natural Airway Monitors Used: Standard Monitors
[2022-08-12 07:34] VITALS: BMI 34.5
[2022-08-12] MEDS: Lidocaine 1% Pres-Free 5 ML VIAL (08:34)
[2022-08-12] MEDS: Tetracaine 0.5% 4 ML BTL OS (08:34)
[2022-08-12] MEDS: Duovisc Viscoelastic System EACH 1 EACH (08:35)
[2022-08-12] MEDS: Balanced Salt Soln.-PLUS 500 ML BAG (08:35)
[2022-08-12] MEDS: Phenylephrine/Lidocaine (15/10) MG/ML 1 ML VIAL (08:36)
[2022-08-12] MEDS: Povidone-Iodine Ophth 30 ML BTL (08:36)
--- NOTE | 2022-08-12 08:51 | W.PM.DSUDISC ---
Date of service: 08/12/22 Time of Service: 08:51 Discharge Plan Disposition Patient Disposition: Home Discharge Details Attending Provider: Clarence Richter Primary Care Provider: Rio Garcia Home Meds and New Rx's Prescriptions: No Action amlodipine 5 mg tablet 5 mg PO DAILY Qty: 90 3RF rosuvastatin [Crestor] 10 mg tablet 10 mg PO DAILY Qty: 90 3RF omeprazole 20 mg capsule,delayed release(DR/EC) 20 mg PO BID MDD 40 PRN (Reason: heartburn) Qty: 90 2RF cyclobenzaprine 5 mg tablet 5 mg PO QHS PRN (Reason: muscle spasm) Qty: 60 0RF gabapentin 300 MG capsule 300 mg PO HS PRNQty: 90 (DME) blood-glucose meter [FreeStyle Lite Meter] 1 EACH kit 1 ea Miscellaneous DIRECTED Qty: 1 0RF Rx Instructions: DX: 250.01 (DME) pen needle, diabetic 31 gauge x 1/3 needle 1 ndl Sub-Q DAILY Qty: 100 4RF Rx Instructions: 31G X 5/16 B/D INSULIN PEN NEEDLE (DME) FreeStyle Lite Strips Strip 1 ea Miscellaneous TID Qty: 300 3RF Rx Instructions: DX: E11.9; ON INSULIN (Z79.4) TID testing duloxetine 60 mg capsule,delayed release(DR/EC) 60 mg PO DAILY Qty: 90 0RF escitalopram oxalate 20 mg tablet 20 mg PO DAILY Qty: 90 1RF glipizide 10 mg tablet 5 mg PO BID Qty: 180 1RF ibuprofen 800 mg tablet 800 mg PO BID prn Qty: 100 3RF insulin glargine [Lantus Solostar U-100 Insulin] 100 unit/mL (3 mL) insulin pen 18 unit subcut HS Qty: 3 1RF (DME) lancets [FreeStyle Lancets] 28 gauge misc 1 ea Sub-Q TID Qty: 300 3RF Rx Instructions: DX: E11.9 ON INSULIN (Z79.4) TID testing losartan 100 mg tablet 100 mg PO DAILY Qty: 90 3RF Rx Instructions: lamotrigine 50 mg tablet extended release 24hr 50 mg PO DAILY Qty: 90 4RF lamotrigine 100 mg tablet 100 mg PO DAILY Qty: 90 4RF tramadol 50 mg tablet 50 mg PO Q6H PRN MDD 4 tab Qty: 28 0RF metformin 1,000 mg tablet 1,000 mg PO BID Qty: 180 3RF Rx Instructions: ONE tab BID (note mg change) Discharge Instructions Stand Alone Forms: Post-op Topical Cataract, Mirta Bartlett ([facility]U) Discharge Orders Discharge Orders: Discharge Order (Routine); Ordered 08/12/22 Ordered By: Clarence Richter DS: Diagnosis Discharge Diagnosis (1) Nuclear age-related cataract, left eye: Status: Resolved (2) Cortical age-related cataract, left eye: Status: Resolved
[2022-08-12 08:52] VITALS: BP 128/76; PULSE 77; RESP 18; TEMP 36.4; O2SAT 96
--- NOTE | 2022-08-12 08:52 | ROE_ITS ---
Date of service: 08/12/22 Time of Service: 08:52 Operative Note Operative Note DATE OF PROCEDURE: 08/12/22 PRE-OP DIAGNOSIS: Nuclear/cortical cataract, left eye POST-OP DIAGNOSIS: same PROCEDURE: Cataract extraction using phacoemulsification with intraocular lens implant, left eye SURGEON: Clarence Richter ANESTHESIA TYPE: Local By Surgeon and MAC Refer to Anesthesia Record PATHOLOGY: none sent COMPLICATIONS: None Patient was transported to: same day Patient's condition: stable Implants: Donny Clareon [id number] Indications: Progressive decreased vision due to cataract, left eye Procedure Description: CATARACT SURGERY OPERATIVE REPORT PREOPERATIVE DIAGNOSIS: Nuclear/cortical cataract, left eye POSTOPERATIVE DIAGNOSIS: Same OPERATION: Cataract extraction using phacoemulsification with posterior chamber intraocular lens implant, left eye. IOL: IOL Water Pump Assembler/Model: Donny Clareon [id number] IOL Power: + 17.5 diopters IOL Serial Number: [id number] Optic Diameter: 6.0mm Haptic/Overall Diameter: 13.0mm PHACO INFO: DonnyConvertigourion Vision System with OZil and Active Fluidics Cumulative Dispersed Energy (CDE): 2.44 seconds SURGEON: Clarence Richter MD, KEVIN ANESTHESIA: Monitored Anesthesia Care (MAC), with local sub-tenon's anesthetic infiltration COMPLICATIONS: None SPECIMENS: None INDICATIONS FOR PROCEDURE: The patient is a 71-year-old lady with history of diminished visual acuity in her left eye secondary to the development of nuclear/cortical cataract. She is significantly symptomatic that she desires cataract surgery and attempt to improve and maximize her vision. The option of cataract surgery was offered to the patient and she wished to proceed. PROCEDURE: The correct surgical eye was identified and marked as the left eye and the pupil was dilated in the preoperative area using mydriatics and cycloplegics. The dilated pupil size was 8.0 mm. The patient elected to proceed without oral sedation. The patient was brought to the operating room where cardiopulmonary monitoring was instituted and surgical time-out was performed, confirming the correct operative eye and IOL power. Topical anesthesia was administered and ophthalmic povidone-iodine 5% was instilled into the conjunctival fornices. Lidocaine gel was applied to the cornea and the drake-ocular area was prepped with Betadine 10% solution and draped in the usual sterile fashion for intraocular surgery, including an aperture drape. A Tegaderm transparent film dressing was cut in half and used to cover the lashes and lid margins. Care was taken to sequester the lashes and lid margins under the Tegaderm dressing. A lid speculum was placed between the lids of the operative eye and the Donny LuxOR Revalia operating microscope was maneuvered into position. Salty scissors were then used to make a conjunctival buttonhole approximately 6mm posterior to the limbus in the inferonasal quadrant. Blunt dissection was carried out to expose bare sclera, and a blunt-tipped sub-tenon?s anesthesia cannula was introduced and passed posteriorly along the globe where non- preserved plain lidocaine was injected into posterior sub-Tenon?s space. A sideport knife was used to make a paracentesis port superior/superiortemporally. Intraocular phenylephrine/lidocaine was injected into the anterior chamber. The anterior chamber was then filled with viscoelastic. A keratome knife was used construct a two-plane near-clear corneal tunnel extending 2.0mm into clear cornea in the temporal position. . A flap was raised on the anterior capsule and capsulorhexis forceps were used to complete a continuous curvilinear capsulorhexis of 5.0 mm. Balanced salt solution was then used to perform cortical cleaving hydrodissection and nuclear hydrodelineation until the lens could be freely rotated within the capsular bag. The lens nucleus was then disassembled and removed within the capsular bag and iris plane using phacoemulsification. Residual cortical material was removed using the 45-degree angled silicone I/A tip with 0.3mm port. The posterior capsule was carefully polished to remove as much residual lens epithelial cells as safely possible. The capsular bag was then inflated and the anterior chamber deepened with viscoelastic. The lens implant described above was inserted into the capsular bag using the Donny Autonome Injector. A Kuglen hook was used to dial the IOL into position. Residual viscoelastic was then removed first from posterior to the IOL, then from the anterior chamber using the I/A handpiece. The lens implant was noted to center nicely within the capsular bag. The incisions were stromally hydrated, and the anterior chamber was reformed using BSS. Then 0.5cc of moxifloxacin 1.0mg/ml were injected into the capsular bag and anterior chamber. The incisions were checked with a Weck spear and found to be secure. Several drops of ophthalmic povidone-iodine 5% were then applied to the eye followed by two drops of Imprimis combination prednisolone/moxifloxacin/nepafenac solution. The drapes were removed and a clear plastic protective eye shield was placed over the eye. The patient was then returned to Same Day Surgery in stable condition.
--- NOTE | 2022-08-12 09:03 | W.ANESPOSTOP ---
Postoperative Evaluation Date, Time and Location Date Performed: 08/12/22 Time Performed: 09:03 Patient Location: Day Surgery Unit Vital Signs Most Recent Imported Vital Signs: Most Recent Vital Signs Temp Pulse Resp BP Pulse Ox 36.4 C L 77 18 128/76 96 08/12/22 08:52 08/12/22 08:52 08/12/22 08:52 08/12/22 08:52 08/12/22 08:52 Pain Score Most Recent Pain Score: Most Recent Pain Score Pain Level 0 08/12/22 08:52 Assessment Mental Status: Awake (Alert & Oriented to Patient Baseline) Airway and Respiratory Function: Patent airway with normal (patient baseline) respiratory exam Cardiovascular Function: Hemodynamically Stable Hydration Status: Adequately Hydrated Nausea & Vomiting: No Nausea or Vomiting Pain: Pt. Denies Any Pain Peripheral Nerve Block: Patient did not receive a nerve block
== END 2022-08-12 09:11 | disposition home or self-care (01) ==
LOC: SUR 06:56
PROVIDERS: PCP Nurse Practitioner Family; Visit Provider Ophthalmology
PROC: (CPT 66984; principal; 2022-08-12 08:30)
DX: H25.012 Cortical age-related cataract, left eye; H25.011 Cortical age-related cataract, right eye; I10 Essential (primary) hypertension; E66.9 Obesity, unspecified
CPT/HCPCS: 66984; V2632

== ENCOUNTER 2022-08-29 06:41 | Day surgery (SDC) | payer MEDICARE, SELFPAY ==
[2022-08-29] MEDS: Tropicam./Phenyleph. (1/2.5%) 5 ML BTL OD ×3 (07:13→07:30)
[2022-08-29 07:26] VITALS: BP 150/80; PULSE 83; RESP 20; TEMP 36.4; O2SAT 97
--- NOTE | 2022-08-29 07:32 | ANES.PREOP_ITS ---
General Info Date of Service Date Performed: 08/29/22 Height: 5 ft 4 in Weight: 91.3 kg Body Mass Index (BMI): 34.5 Surgical Procedure: Operation Date: 08/29/22 08:40 Proposed Procedure Side Surgeon p Cataract Extraction with IOL Implant Right Clarence Richter MD Meds Allergies and Home Medications Allergies Allergy/AdvReac Type Severity Reaction Status Date / Time lisinopril AdvReac cough Verified 08/29/22 07:21 Home Medication Medication Instructions Recorded gabapentin 300 mg capsule 300 mg PO HS PRN #90 tab-caps 01/02/17 blood-glucose meter (FreeStyle ##1 06/01/17 Lite Meter kit) pen needle, diabetic 31 gauge x ##100 06/15/1805/17 cyclobenzaprine 5 mg tablet 5 mg PO QHS PRN muscle spasm #60 01/12/22 tabs blood sugar diagnostic (FreeStyle #300 strips 03/25/22 Lite Strips) duloxetine 60 mg capsule,delayed 60 mg PO DAILY #90 caps 03/25/22 release escitalopram oxalate 20 mg tablet 20 mg PO DAILY #90 tabs 03/25/22 glipizide 10 mg tablet 5 mg PO BID #180 tabs 03/25/22 ibuprofen 800 mg tablet 800 mg PO BID prn #100 tab-caps 03/25/22 insulin glargine 100 unit/mL (3 18 unit (0.18 mL) subcut HS #3 pens 03/25/22 mL) subcutaneous pen (Lantus Solostar U-100 Insulin) lancets 28 gauge (FreeStyle #300 ea 03/25/22 Lancets) losartan 100 mg tablet 100 mg PO DAILY #90 tab-caps 03/25/22 lamotrigine 100 mg tablet 100 mg PO DAILY #90 tab-caps 03/26/22 lamotrigine 50 mg tablet,extended 50 mg PO DAILY #90 tabs 03/26/22 release 24 hr tramadol 50 mg tablet 50 mg PO Q6H PRN pain #28 tab-caps 05/13/22 amlodipine 5 mg tablet 5 mg PO DAILY #90 tabs 05/30/22 rosuvastatin 10 mg tablet (Crestor) 10 mg PO DAILY #90 tabs 05/30/22 metformin 1,000 mg tablet 1,000 mg PO BID Diabetes #180 tabs 06/15/22 omeprazole 20 mg capsule,delayed 20 mg PO BID PRN heartburn #90 caps 07/05/22 release Current Visit Medications: Current Medications Generic Name Dose Route Start Last Admin Trade Name Jarodq PRN Reason Stop Dose Admin Acetaminophen 1,000 mg 08/29/22 06:00 Acetaminophen 500 Mg Tab PO Q4H PRN PRN Miscellaneous Medication 0 ml 08/29/22 06:00 08/29/22 07:30 Tropicam./Phenyleph. (1/2.5%) 5 Ml Btl OD 1 drp DIRECTED ILIANA Administration Miscellaneous Medication 0 ml 08/29/22 06:00 Prednisolone 1%, Moxifloxacin 0.5%, Nepafenac 0.1% 5ml Btl OD DIRECTED ILIANA Tetracaine HCl 0 ml 08/29/22 06:00 Tetracaine 0.5% 4 Ml Btl OD DIRECTED ILIANA PFSH Active Problems Active Problems: Problem Status Onset Code Diabetes mellitus 03/13/15 E11.9 Essential hypertension 03/20/13 I10 Right hip pain 03/13/15 M25.551 Primary fibromyalgia syndrome M79.7 Palpitations 11/27/14 R00.2 Obesity (BMI 30-39.9) 11/04/15 E66.9 Low back pain with right-sided sciatica M54.41 Knee pain M25.569 Kidney stone N20.0 Hyperlipidemia 09/06/12 E78.5 Hernia of anterior abdominal wall 05/23/17 K43.9 Family hx-breast malignancy Z80.3 Family hx of colon cancer Z80.0 Depressive disorder F32.9 Anemia, iron deficiency 04/22/14 D50.9 Transaminasemia 04/13/02 R74.0 Right upper quadrant pain R10.11 Pilonidal cyst without abscess 04/18/13 L05.91 Mucous polyp of cervix N84.1 Mild nonproliferative diabetic retinopathy 04/23/14 E11.3299 GERD without esophagitis K21.9 Low back pain potentially associated with radiculopathy M54.50 Cataract H26.9 Nuclear sclerotic cataract of right eye H25.11 Cortical cataract of right eye H26.9 Dysphagia R13.10 Epigastric abdominal pain R10.13 Nuclear age-related cataract, left eye H25.12 Cortical age-related cataract, left eye H25.012 Cortical age-related cataract, right eye H25.011 Nuclear age-related cataract, right eye H25.11 Medical History Medical History Chronic pain disorder (02/06/17) Pain of left thigh (06/01/17) Paronychia of great toe of left foot Peptic reflux disease Shoulder pain (11/04/15) Surgical History Surgical History HIP REPLACEMENT [facility] [place]; PARTIAL History of cataract surgery Hysterectomy, Laproscopic DUB; has cervix and ovaries Ligation of fallopian tube Tobacco Smoking/Tobacco Use Status: Never Passive smoking exposure: Yes Second hand exposure: Yes Alcohol Alcohol Intake: current Alcohol intake frequency: holidays/special occasions only Substance Use Substance use: Never Substance use type: does not use Counseling provided: none Vital Signs and Lab Results Vital Signs Most Recent Vital Signs in EMR: Most Recent Vital Signs Temp Pulse Resp BP Pulse Ox 36.4 C L 83 20 150/80 H 97 08/29/22 07:26 08/29/22 07:26 08/29/22 07:26 08/29/22 07:26 08/29/22 07:26 Point of Care Results Point of Care Results: Finger Stick Blood Glucose 200 08/29/22 07:05 Lab Results Blood Type / Crossmatch: No Data to Display Complete Blood Count: No Data to Display Complete Metabolic Panel: No Data to Display Liver Function Panel: No Data to Display Coagulation Panel: No Data to Display Cardiac Panel: No Data to Display Arterial Blood Gas: No Data to Display Venous Blood Gas: No Data to Display Pancreas Panel: No Data to Display Thyroid Panel: No Data to Display Infectious Disease: No Data to Display Blood Cultures: No Data to Display Toxicology Panel: No Data to Display Anesthesia Assessment and Plan Anesthesia History Personal History: No History of Anesthesia Complications Family History: No Family History of Anesthesia Complications Exercise Tolerance Exercise Tolerance: Metabolic Equivalents>4 Cardiac & Pulmonary Exam Cardiac Exam: Normal S1/S2 Heart Sounds Pulmonary Exam: Clear Bilateral Breath Sounds Implantable Cardiac Device Does patient have a Pacemaker or an ICD?: No Airway Exam Known Difficult Airway: No Mallampati Class: 1 Mouth Opening: Normal (> 3cm) Thyromental Distance: Greater than 3 cm Neck Range of Motion: Full ROM Neck Circumference: Normal Teeth Condition: Removable Dentures/Plates Upper and Removable Dentures/Plates Lower ASA Classification ASA Score: ASA 3 Emergency Case?: No NPO Status NPO Status: NPO Clears >2 hours, Solids >8 hours Anesthesia Plan Resuscitation Status: Full Code Anesthesia Technique: MAC Anesthesia Airway Planned: Natural Airway Monitors Used: Standard Monitors
[2022-08-29 07:35] VITALS: BMI 34.5
[2022-08-29] MEDS: Tetracaine 0.5% 4 ML BTL OD (08:00)
[2022-08-29] MEDS: Povidone-Iodine Ophth 30 ML BTL (08:01)
[2022-08-29] MEDS: Lidocaine 1% Pres-Free 5 ML VIAL (08:05)
[2022-08-29] MEDS: Duovisc Viscoelastic System EACH 1 EACH (08:05)
[2022-08-29] MEDS: Balanced Salt Soln.-PLUS 500 ML BAG (08:05)
[2022-08-29] MEDS: Phenylephrine/Lidocaine (15/10) MG/ML 1 ML VIAL (08:05)
[2022-08-29] MEDS: Triamcinolone 40 MG/ML VIAL (08:05)
[2022-08-29 08:22] VITALS: BP 136/62; PULSE 77; RESP 18; TEMP 36.4; O2SAT 97
--- NOTE | 2022-08-29 08:22 | W.PM.DSUDISC ---
Date of service: 08/29/22 Time of Service: 08:22 Discharge Plan Disposition Patient Disposition: Home Discharge Details Attending Provider: Clarence Richter Primary Care Provider: Rio Garcia Home Meds and New Rx's Prescriptions: No Action amlodipine 5 mg tablet 5 mg PO DAILY Qty: 90 3RF rosuvastatin [Crestor] 10 mg tablet 10 mg PO DAILY Qty: 90 3RF omeprazole 20 mg capsule,delayed release(DR/EC) 20 mg PO BID MDD 40 PRN (Reason: heartburn) Qty: 90 2RF cyclobenzaprine 5 mg tablet 5 mg PO QHS PRN (Reason: muscle spasm) Qty: 60 0RF gabapentin 300 MG capsule 300 mg PO HS PRNQty: 90 (DME) blood-glucose meter [FreeStyle Lite Meter] 1 EACH kit 1 ea Miscellaneous DIRECTED Qty: 1 0RF Rx Instructions: DX: 250.01 (DME) pen needle, diabetic 31 gauge x 1/3 needle 1 ndl Sub-Q DAILY Qty: 100 4RF Rx Instructions: 31G X 5/16 B/D INSULIN PEN NEEDLE (DME) FreeStyle Lite Strips Strip 1 ea Miscellaneous TID Qty: 300 3RF Rx Instructions: DX: E11.9; ON INSULIN (Z79.4) TID testing duloxetine 60 mg capsule,delayed release(DR/EC) 60 mg PO DAILY Qty: 90 0RF escitalopram oxalate 20 mg tablet 20 mg PO DAILY Qty: 90 1RF glipizide 10 mg tablet 5 mg PO BID Qty: 180 1RF ibuprofen 800 mg tablet 800 mg PO BID prn Qty: 100 3RF insulin glargine [Lantus Solostar U-100 Insulin] 100 unit/mL (3 mL) insulin pen 18 unit subcut HS Qty: 3 1RF (DME) lancets [FreeStyle Lancets] 28 gauge misc 1 ea Sub-Q TID Qty: 300 3RF Rx Instructions: DX: E11.9 ON INSULIN (Z79.4) TID testing losartan 100 mg tablet 100 mg PO DAILY Qty: 90 3RF Rx Instructions: lamotrigine 50 mg tablet extended release 24hr 50 mg PO DAILY Qty: 90 4RF lamotrigine 100 mg tablet 100 mg PO DAILY Qty: 90 4RF tramadol 50 mg tablet 50 mg PO Q6H PRN MDD 4 tab Qty: 28 0RF metformin 1,000 mg tablet 1,000 mg PO BID Qty: 180 3RF Rx Instructions: ONE tab BID (note mg change) Discharge Instructions Stand Alone Forms: Post-op Topical Cataract, Mirta Bartlett ([facility]) Discharge Orders Discharge Orders: Discharge Order (Routine); Ordered 08/29/22 Ordered By: Clarence Richter DS: Diagnosis Discharge Diagnosis (1) Cortical age-related cataract, right eye: Status: Resolved (2) Nuclear age-related cataract, right eye: Status: Resolved
--- NOTE | 2022-08-29 08:22 | W.PM.OP ---
Date of service: 08/29/22 Time of Service: 08: Operative Note Operative Note DATE OF PROCEDURE: 08/29/22 PRE-OP DIAGNOSIS: Nuclear/cortical cataract, right eye POST-OP DIAGNOSIS: same PROCEDURE: Cataract extraction using phacoemulsification with intraocular lens implant, right eye SURGEON: Clarence Richter ANESTHESIA TYPE: Local By Surgeon and MAC Refer to Anesthesia Record ESTIMATED BLOOD LOSS: 0 PATHOLOGY: none sent COMPLICATIONS: None Patient was transported to: same day Patient's condition: stable Implants: Donny Clareon [id number] Indications: Progressive decreased vision due to cataract, right eye Procedure Description: CATARACT SURGERY OPERATIVE REPORT PREOPERATIVE DIAGNOSIS: Nuclear/cortical cataract, right eye POSTOPERATIVE DIAGNOSIS: Same OPERATION: Cataract extraction using phacoemulsification with posterior chamber intraocular lens implant, right eye. IOL: IOL Regrinder Operator/Model: Donny Clareon [id number] IOL Power: + 17.0 diopters IOL Serial Number: [id number] Optic Diameter: 6.0mm Haptic/Overall Diameter: 13.0mm PHACO INFO: DonnySOAK (Smart Operational Agricultural toolKit)urion Vision System with OZil and Active Fluidics Cumulative Dispersed Energy (CDE): 2.76 seconds SURGEON: Clarence Richter MD, KEVIN ANESTHESIA: Monitored Anesthesia Care (MAC), with local sub-tenon's anesthetic infiltration COMPLICATIONS: None SPECIMENS: None INDICATIONS FOR PROCEDURE: The patient is a 71-year-old lady with history of diminished visual acuity in both eyes secondary to the development of bilateral nuclear/cortical cataract. She has already undergone cataract surgery in the left eye and is doing well postoperatively. She now presents for cataract surgery in the right eye. PROCEDURE: The correct surgical eye was identified and marked as the right eye and the pupil was dilated in the preoperative area using mydriatics and cycloplegics. The dilated pupil size was 8.0 mm. The patient elected to proceed without oral sedation. The patient was brought to the operating room where cardiopulmonary monitoring was instituted and surgical time-out was performed, confirming the correct operative eye and IOL power. Topical anesthesia was administered and ophthalmic povidone-iodine 5% was instilled into the conjunctival fornices. Lidocaine gel was applied to the cornea and the drake-ocular area was prepped with Betadine 10% solution and draped in the usual sterile fashion for intraocular surgery, including an aperture drape. A Tegaderm transparent film dressing was cut in half and used to cover the lashes and lid margins. Care was taken to sequester the lashes and lid margins under the Tegaderm dressing. A lid speculum was placed between the lids of the operative eye and the Magno-Aramis operating microscope was maneuvered into position. Salty scissors were then used to make a conjunctival buttonhole approximately 6mm posterior to the limbus in the inferonasal quadrant. Blunt dissection was carried out to expose bare sclera, and a blunt-tipped sub-tenon?s anesthesia cannula was introduced and passed posteriorly along the globe where non-preserved plain lidocaine was injected into posterior sub-Tenon?s space. A sideport knife was used to make a paracentesis port inferiortemporally. Intraocular phenylephrine/lidocaine was injected into the anterior chamber. The anterior chamber was then filled with viscoelastic. A keratome knife was used to construct a two--plane near-clear corneal tunnel extending 2.0mm into clear cornea in the superiortemporal position.. A flap was raised on the anterior capsule and capsulorhexis forceps were used to complete a continuous curvilinear capsulorhexis of 5.5 mm. Balanced salt solution was then used to perform cortical cleaving hydrodissection and nuclear hydrodelineation until the lens could be freely rotated within the capsular bag. The lens nucleus was then disassembled and removed within the capsular bag and iris plane using phacoemulsification. Residual cortical material was removed using the I/A handpiece. The posterior capsule was carefully polished to remove as much residual lens epithelial cells as safely possible. The capsular bag was then inflated and the anterior chamber deepened with viscoelastic. The lens implant described above was inserted into the capsular bag using the Donny Autonome Injector. A Kuglen hook was used to dial the IOL into position. Residual viscoelastic was then removed first from posterior to the IOL, then from the anterior chamber using the I/A handpiece. The lens implant was noted to center nicely within the capsular bag. The incisions were stromally hydrated, and the anterior chamber was reformed using BSS. Then 0.5cc of moxifloxacin 1.0mg/ml were injected into the capsular bag and anterior chamber. The incisions were checked with a Weck spear and found to be secure. At the conclusion of the procedure, triamcinolone 20 mg in 0.5 cc were injected into posterior sub-tenon's space using the sub-tenon's anesthesia injection cannula. Several drops of ophthalmic povidone-iodine 5% were then applied to the eye followed by two drops of Imprimis combination prednisolone/moxifloxacin/nepafenac solution. The drapes were removed and a clear plastic protective eye shield was placed over the eye. The patient was then returned to [facility] Day Surgery in stable condition.
--- NOTE | 2022-08-29 08:37 | W.ANESPOSTOP ---
Postoperative Evaluation Date, Time and Location Date Performed: 08/29/22 Time Performed: 08:30 Patient Location: Day Surgery Unit Vital Signs Most Recent Imported Vital Signs: Most Recent Vital Signs Temp Pulse Resp BP Pulse Ox 36.4 C L 77 18 136/62 97 08/29/22 08:22 08/29/22 08:22 08/29/22 08:22 08/29/22 08:22 08/29/22 08:22 Pain Score Most Recent Pain Score: Most Recent Pain Score Pain Level 0 08/29/22 08:22 Assessment Mental Status: Awake (Alert & Oriented to Patient Baseline) Airway and Respiratory Function: Patent airway with normal (patient baseline) respiratory exam Cardiovascular Function: Hemodynamically Stable Hydration Status: Adequately Hydrated Nausea & Vomiting: No Nausea or Vomiting Pain: Pt. Denies Any Pain Peripheral Nerve Block: Patient did not receive a nerve block
== END 2022-08-29 08:39 | disposition home or self-care (01) ==
LOC: SUR 06:41
PROVIDERS: PCP Nurse Practitioner Family; Visit Provider Ophthalmology
PROC: (CPT 66984; principal; 2022-08-29 08:30)
DX: H25.011 Cortical age-related cataract, right eye (principal); H25.11 Age-related nuclear cataract, right eye; I10 Essential (primary) hypertension; R13.10 Dysphagia, unspecified; Z98.42 Cataract extraction status, left eye
CPT/HCPCS: 66984; V2632

== ENCOUNTER 2022-10-06 02:03 | Outpatient (CLI) | payer MEDICARE, SELFPAY ==
--- NOTE | 2022-10-06 08:15 | DI.RAD_ITS ---
Exam(s) XR FOOT LT COMPLETE XR ANKLE LT COMPLETE EXAM: XR ANKLE LT COMPLETE and XR foot LT complete CLINICAL HISTORY: continued pain and swelling.[id number] TECHNIQUE: 2D digital imaging was performed of the left foot and ankle. Six images were obtained. AP, lateral and oblique views were obtained. COMPARISON: CR RIGHT FOOT COMPLETE from 01/02/2013 CR RIGHT ANKLE COMPLETE from 01/02/2013 FINDINGS: BONES: No acute fracture is present. No bony destructive lesion is seen. There is a small plantar davina caneal spur. There is an enthesophyte at the posterior calcaneus. Soft tissue calcifications are se en posterior to the ankle which may lie within the Achilles tendon and represent prior trauma. Mild degenerative changes are seen in JOINTS:Characterized by joint space narrowing and periarticular spurring. The findings are best appr eciated at the 1st MTP joint. SOFT TISSUE: Atherosclerosis is present. IMPRESSION: 1. No acute abnormality. 2. Degenerative changes in the foot and ankle. DATA REPOSITORY: RADIATION DOSE DELIVERED:
== END 2022-10-06 02:23 ==
LOC: DI 02:03
PROVIDERS: PCP Nurse Practitioner Family; Visit Provider Nurse Practitioner Family
DX: M19.072 Primary osteoarthritis, left ankle and foot (principal)
CPT/HCPCS: 73610; 73630

== ENCOUNTER 2022-11-11 01:15 | Outpatient (CLI) | payer MEDICARE, SELFPAY ==
[2022-11-11 12:51] LABS: Anion Gap 9.6 mmol/L (3-11); BUN 17 mg/dL (7-18); CO2 25.4 mmol/L (21.0-32.0); Calcium 9.6 mg/dL (8.5-10.1); Chloride 101 mmol/L (98-107); Estimated GFR 60.98 (mL/min/1.73m2); Glucose 118 mg/dL (74-106); Magnesium 1.2 mg/dL (1.8-2.4); Potassium 4.6 mmol/L (3.5-5.1); Sodium 136 mmol/L (136-145)
[2022-11-11 12:55] LABS: Hemoglobin A1C 6.5 % (<5.7)
== END 2022-11-11 01:16 | disposition home or self-care (01) ==
LOC: LOS 01:15
PROVIDERS: PCP Nurse Practitioner Family; Visit Provider Nurse Practitioner Family
DX: I10 Essential (primary) hypertension (principal); E83.42 Hypomagnesemia; E11.22 Type 2 diabetes mellitus with diabetic chronic kidney disease; N18.2 Chronic kidney disease, stage 2 (mild); Z79.4 Long term (current) use of insulin
CPT/HCPCS: 36415; 80048; 83036; 83735

== ENCOUNTER 2023-01-09 14:29 | Outpatient (CLI) | payer MEDICARE, SELFPAY ==
--- NOTE | 2023-01-09 13:45 | DI.RAD_ITS ---
Exam(s) XR KNEE LT 3V AP,LAT,LEON EXAM: XR KNEE LT 3V AP,LAT,LEON CLINICAL HISTORY: Bilateral knee pain. TECHNIQUE: 2D digital imaging was performed of the left knee. Three images were obtained. AP, late ral and PA tunnel views were obtained. COMPARISON: There are no priors for comparison. FINDINGS: BONES: No acute fracture is present. No bony destructive lesion is seen. JOINTS: There are marked degenerative changes of the left knee with joint space narrowing and bony hy pertrophy. The findings are most marked at the patellofemoral joint and the lateral femoral tibial j oint. There is a small joint effusion. No loose body. SOFT TISSUE: Atherosclerosis is present. Soft tissue calcification is seen adjacent to the medial fe moral condyle which may represent prior injury. IMPRESSION: Marked degenerative changes of the left knee. DATA REPOSITORY: RADIATION DOSE DELIVERED:
--- NOTE | 2023-01-09 13:45 | DI.RAD_ITS ---
Exam(s) XR KNEE RT 3V AP,LAT,LEON EXAM: XR KNEE RT 3V AP,LAT,LEON CLINICAL HISTORY: Bilateral knee pain. TECHNIQUE: 2D digital imaging was performed of the right knee. Three views obtained. AP, lateral an d PA tunnel views were obtained. COMPARISON: No priors for comparison. FINDINGS: BONES: No acute fracture is present. No bony destructive lesion is seen. JOINTS: Chondrocalcinosis is seen in the lateral femoral tibial joint. There is joint space narrowin g and periarticular spurring involving all 3 joint compartments. The findings are most marked in the patellofemoral joint. There is a small joint effusion. SOFT TISSUE: Atherosclerosis is present. Soft tissue calcifications are seen around the knee. IMPRESSION: Degenerative changes of the right knee. DATA REPOSITORY: RADIATION DOSE DELIVERED:
== END 2023-01-09 14:30 | disposition home or self-care (01) ==
LOC: DIORS 14:30
PROVIDERS: PCP Nurse Practitioner Family; Referring Provider Nurse Practitioner Family; Visit Provider Student in an Organized Health Care Education/Training Program
DX: M17.12 Unilateral primary osteoarthritis, left knee; M17.11 Unilateral primary osteoarthritis, right knee
CPT/HCPCS: 73562; 99203

== ENCOUNTER 2023-01-10 11:28 | Outpatient (CLI) | payer MEDICARE, SELFPAY ==
--- NOTE | 2023-01-10 11:15 | RT.EKG_ITS ---
APPROVED REPORT Exam: Resting ECG Reason for Exam: elevated heart rate Patient Location: O HR:107 bpm ECG Measurements Heart Rate 107 [place] [id number] P [id number] QRSd 96 QRS 33 QT 344 T -3 QTc 459 Conclusion Atrial fibrillation...V-rate 78-129, irreg A-activity Low voltage, extremity leads...all extremity leads <0.5mV
== END 2023-01-10 11:29 | disposition home or self-care (01) ==
LOC: DI.CM 11:30
PROVIDERS: PCP Nurse Practitioner Family; Visit Provider Nurse Practitioner Family
DX: R00.0 Tachycardia, unspecified (principal)
CPT/HCPCS: 93010

== ENCOUNTER → 2023-01-26 01:19 | Outpatient (CLI) | payer MEDICARE, SELFPAY ==
--- NOTE | 2023-01-26 08:16 | DI.MRI_ITS ---
Exam(s) MR LOWER JOINT RT WO EXAM: MR LOWER JOINT RT WO CLINICAL HISTORY: rt knee pain, djd,m17.11. TECHNIQUE: Multiplanar multisequence MRI was performed. COMPARISON: CR XR KNEE RT 3V AP,LAT,LEON from 01/09/2023 FINDINGS: BONES: There is no fracture or contusion pattern. JOINTS: A small joint effusion is present. Articular cartilage: Patellofemoral joint: Thinning of the cartilage overlying the lateral patellar facet without focal defect. Mild periarticular spurring. Medial femoral tibial joint: Articular cartilage is unremarkable. Lateral femoral tibial joint: Thinning of cartilage extending down to bone and subchondral cysts. TENDONS: Extensor mechanism: Unremarkable. Medial retinaculum: Unremarkable. Lateral retinaculum: Unremarkable. Popliteus: Unremarkable. MUSCLES: Unremarkable. MENISCI: The medial meniscus is unremarkable. The lateral meniscus shows a large amount of irregular and amorphous signal in the anterior horn. Enlargement of the body with linear horizontal tear exte nding to superior articular surface. SOFT TISSUES: Mild subcutaneous edema. LIGAMENTS: Anterior Cruciate: Unremarkable. Posterior Cruciate: Unremarkable. Medial Collateral:Unremarkable. Lateral Collateral: Unremarkable. OTHER: IMPRESSION: Tear of the anterior horn and body of the medial meniscus. Degenerative changes of the lateral femoral tibial joint space with cartilage thinning extending down to bone. No ligament tear. Joint effusion. DATA REPOSITORY:
== END ==
PROVIDERS: PCP Nurse Practitioner Family; Visit Provider Student in an Organized Health Care Education/Training Program
DX: M23.211 Derangement of anterior horn of medial meniscus due to old tear or injury, right knee (principal); M25.861 Other specified joint disorders, right knee
CPT/HCPCS: 73721

== ENCOUNTER → 2023-02-10 01:00 | Outpatient (CLI) | payer MEDICARE, SELFPAY ==
--- NOTE | 2023-02-10 13:03 | DI.US_ITS ---
APPROVED REPORT EXAM: Comprehensive 2D, Doppler, and color-flow Echocardiogram Patient Location: Out-Patient [employer] Finishing Hand: Tanisha Small RDCS (AE) Indications: Nausea, Tachycardia Other Information Study Quality: Adequate Conclusion Normal left ventricular wall thickness and chamber size. Ejection fraction is 55%. Wall motion is n ormal Normal right ventricular size and systolic function Both atria are normal in size Aortic valve is trileaflet and mildly sclerotic without stenosis or regurgitation Mild mitral annular calcification. Moderate mitral regurgitation Borderline dilated ascending aorta 3.5 cm Estimated right ventricular systolic pressure is 32 mmHg Wall motion Left Ventricle The left ventricle is normal size. The left ventricular systolic function is normal. The left ventric ular ejection fraction is within the normal range. There is normal left ventricular wall thickness. T here is normal LV segmental wall motion. There is no ventricular septal defect visualized. LVEF is 55 %. Right Ventricle The right ventricle is normal size. The right ventricular systolic function is normal. Atria The left atrium size is normal. The right atrium size is normal. The interatrial septum is intact wit h no evidence for an atrial septal defect. Aortic Valve The aortic valve is mildly sclerotic Aortic valve is trileaflet. There is no aortic valvular stenosis . No aortic regurgitation is present. Mitral Valve There is mitral annular calcification. No evidence of mitral valve stenosis. Moderate mitral regurgi tation. Tricuspid Valve The tricuspid valve is normal in structure. There is no tricuspid valve stenosis. Mild tricuspid regu rgitation. The RVSP is 31.8_ mmHg. Pulmonic Valve The pulmonary valve is normal in structure. There is no pulmonic valvular stenosis. Trace pulmonic re gurgitation. Great Vessels The aortic root is normal in size. The ascending aorta is mildly dilated. Aortic arch is not well vis ualized. IVC is normal in size and collapses >50% with inspiration. Pericardium There is no pericardial effusion. 2D Dimensions IVSD d PLAX 1.01 cm F: 0.6-1.0 Ao Root d 2.61 cm F: 2.7 - 3.3 LVPW d PLAX 0.96 cm F: 0.6 - 1.0 Ao Asc Diam d 3.51 cm F: 2.3 - 3.1 LVID d PLAX 4.77 cm F: 3.8 - 5.2 LVDs 3.35 cm F: 2.2 - 3.5 LV EF Teichholz 57.0 % FS 29.91 % LV EDV (Teich) 106.1 mL LV ESV (Teich) 45.6 mL M-Mode TAPSE 1.37 cm (M/F) >1.7 Auto EF LV EDV A4C 100.4 mL LV EDV A2C 89.7 mL LV EDV BP 95.3 mL LV ESV A4C 42.2 mL LV ESV A2C 41.7 mL LV ESV BP 42.1 mL LVEF(%) A4C 58.0 % LVEF(%) A2C 53.5 % LVEF(%) BP 55.8 % LV SV A4C 58.2 ml LV SV A2C 48.0 ml LV SV BP 53.2 ml LV CO A4C 4.3 L/min LV CO A2C 3.8 L/min LV CO BP 4.1 L/min HR A4C 74.39 BPM HR A2C 79.29 BPM LV EDV Index (BP) LA Volume LA Length A4C 5.0 cm LA Length A2C 5.6 cm LA Area A4C s 15.50 cm2 LA Area A2C s 22.69 cm2 LA Vol A4C A-L 41.06 mL LA Vol A2C A-L 77.98 mL LA Vol Biplane A-L 60.1 mL LA Vol/BSA A4C A-L LA Vol/BSA A2C A-L LA Vol/BSA BP A-L 31.0 mL/m2 LA Vol A4C MOD 39.2 mL LA Vol A2C MOD 73.8 mL LA Vol BP MOD 56.8 mL RA Volume RA Area A4C 11.3 cm2 RA ESV A4C (A-L) 24.6mL RA Vol/BSA A4C A-L RA Length A4C 4.4 cm RA ESV A4C (MOD) 24.1mL LV Diastology MV E' medial 0.121 (>0.07 m/s) MV E' lateral 0.124 (>0.1 m/s) Aortic Valve AoV Vmax 1.40 m/s LVOT Vmax 1.27 m/s AoV Peak Grad 7.9 mmHg LVOT Peak Grad 6.5 mmHg AoV Area (Vmax) 2.80 cm2 LVOT VTI 0.223 m AoV VTI 0.251 m LVOT Mean Grad 3.8 mmHg AoV Mean Hamlet. 0.98 m/s LVOT SV 69.01 mL AoV Mean Grad 4.4 mmHg LVOT Diam s 1.95 cm AoV Area (VTI) 2.75 cm2 Velocity Ratio 0.91 Mitral Valve MV Vmax TIPS 1.11 m/s MV Mean Grad 1.7 (<2mmHg) MV VTI 0.169 m Pulmonary Valve PV Vmax 0.91 (0.5-1.5 m/s) RVOT Vmax 0.87 m/s PV Peak Grad 3.3 mmHg RVOT Peak Gr. 3.0 mmHg PV Mean Hamlet 0.71 m/s RVOT VTI 0.152 m PV Mean Grad 2.2 mmHg RVOT Mean Gr. 1.4 mmHg Tricuspid Valve RA Pressure 3.00 mmHg TR Vmax 2.68 m/s TV S' 0.12 m/s TR Peak Grad 28.8 mmHg RVSP (TR) 31.8 mmHg
== END ==
PROVIDERS: PCP Nurse Practitioner Family; Visit Provider Nurse Practitioner Family
DX: R00.0 Tachycardia, unspecified (principal)
CPT/HCPCS: 93306

== ENCOUNTER 2023-02-13 08:00 | Outpatient (CLI) | payer MEDICARE, SELFPAY ==
--- NOTE | 2023-02-13 08:00 | RT.EKG_ITS ---
APPROVED REPORT Exam: Resting ECG Reason for Exam: afib Patient Location: O HR:91 bpm ECG Measurements Heart Rate 91 [place] [id number] P [id number] QRSd 96 QRS 32 QT 351 T 11 QTc 432 Conclusion Atrial fibrillation...? atrial activity Low voltage, extremity leads...all extremity leads <0.5mV
== END 2023-02-13 08:01 | disposition home or self-care (01) ==
LOC: DI.CARD 08:01
PROVIDERS: PCP Nurse Practitioner Family; Visit Provider Internal Medicine Cardiovascular Disease
DX: I48.91 Unspecified atrial fibrillation (principal); R00.2 Palpitations
CPT/HCPCS: 93010

== ENCOUNTER → 2023-02-13 11:08 | Outpatient (BNVA) | payer MEDICARE, SELFPAY | PROVIDERS: PCP Nurse Practitioner Family; Referring Provider Nurse Practitioner Family; Visit Provider Internal Medicine Cardiovascular Disease | DX: Z79.01 Long term (current) use of anticoagulants (principal); I10 Essential (primary) hypertension; M25.562 Pain in left knee; G89.29 Other chronic pain; I48.91 Unspecified atrial fibrillation | CPT/HCPCS: 93005; 99203; 99214 ==

== ENCOUNTER 2023-02-17 02:28 | Outpatient (CLI) | payer MEDICARE, SELFPAY ==
[2023-02-17 12:36] LABS: HGB 11.9 g/dL (11.2-15.7); MCH 30.4 pg (27.0-33.0); MCV 87 fL (80-95); Platelet Count 201 10^3/uL (130-400); RBC 3.91 10^6/uL (3.93-5.22); RDW 12.5 % (11.7-14.6); RDW-SD 39.7 fL; WBC 9.64 10^3/uL (4.4-10.8)
[2023-02-17 12:49] LABS: Anion Gap 8.8 mmol/L (3-11); BUN 18 mg/dL (7-18); CO2 24.2 mmol/L (21.0-32.0); Chloride 100 mmol/L (98-107); Estimated GFR 60.61 (mL/min/1.73m2); Glucose 131 mg/dL (74-106); Potassium 4.9 mmol/L (3.5-5.1); Sodium 133 mmol/L (136-145)
== END 2023-02-17 02:29 | disposition home or self-care (01) ==
LOC: LBO 02:28
PROVIDERS: PCP Nurse Practitioner Family; Visit Provider Student in an Organized Health Care Education/Training Program
DX: M17.12 Unilateral primary osteoarthritis, left knee (principal); Z01.818 Encounter for other preprocedural examination
CPT/HCPCS: 36415; 80048; 85027

== ENCOUNTER 2023-02-17 11:19 | Outpatient (CLI) | payer MEDICARE, SELFPAY ==
--- NOTE | 2023-02-17 11:00 | DI.RAD_ITS ---
Exam(s) XR KNEE LT 1V XR STANDING ALIGNMENT EXAM: XR STANDING ALIGNMENT CLINICAL HISTORY: TKR planning. TECHNIQUE: 2D digital imaging was performed. Standing AP views were performed from the pelvis throu gh the ankles. COMPARISON: CR XR KNEE LT 3V AP,LAT,LEON from 01/09/2023 CR XR KNEE RT 3V AP,LAT,LEON from 01/09/2023 CR XR KNEE LT 1V from 02/17/2023 FINDINGS: BONES: No acute fracture is present. No bony destructive lesion is seen. Leg length discrepancy: Roughly 1 cm with right iliac crest spur projecting superior to the left. JOINTS: Knees: Severe degenerative changes of the lateral femoral tibial joint space of the left knee with severe valgus angulation. Severe degenerative changes with prominent spurring involving the pa tellofemoral joint. Right knee joint spaces are maintained. The ankle joints are unremarkable. Hips: Left hip prosthesis is unremarkable. Right hip joint space is maintained. SOFT TISSUE: Mild bilateral edema. Chronic calcifications in the medial soft tissues of the right kn ee. Vascular calcifications. IMPRESSION: Severe degenerative changes of the left knee . Approximate 1 cm leg length discrepancy. DATA REPOSITORY: RADIATION DOSE DELIVERED:
== END 2023-02-17 11:20 | disposition home or self-care (01) ==
LOC: DIORS 11:19
PROVIDERS: PCP Nurse Practitioner Family; Visit Provider Physician Assistant
DX: M17.12 Unilateral primary osteoarthritis, left knee (principal)
CPT/HCPCS: 36415; 80048; 85027; 73560; 77073

== ENCOUNTER 2023-04-03 04:44 | Outpatient (CLI) | payer MEDICARE, SELFPAY ==
[2023-04-03 12:36] LABS: HCT 34.5 % (36.0-46.0); HGB 11.7 g/dL (11.2-15.7); MCH 29.7 pg (27.0-33.0); MCHC 33.9 % (32.0-36.0); MCV 88 fL (80-95); Platelet Count 207 10^3/uL (130-400); RBC 3.94 10^6/uL (3.93-5.22); RDW 12.2 % (11.7-14.6); RDW-SD 39.1 fL
[2023-04-03 12:58] LABS: Hemoglobin A1C 6.6 % (<5.7)
[2023-04-03 13:06] LABS: Magnesium 1.5 mg/dL (1.8-2.4); NT-proBNP 1341 pg/mL (<300)
[2023-04-03 13:15] LABS: Anion Gap 10.7 mmol/L (3-11); BUN 16 mg/dL (7-18); CO2 23.3 mmol/L (21.0-32.0); CREATININE 1.1 mg/dL (0.55-1.02); Calcium 10.2 mg/dL (8.5-10.1); Chloride 104 mmol/L (98-107); Estimated GFR 54.06 (mL/min/1.73m2); Glucose 181 mg/dL (74-106); Potassium 4.9 mmol/L (3.5-5.1); Sodium 138 mmol/L (136-145)
== END 2023-04-03 04:45 | disposition home or self-care (01) ==
LOC: LOS 04:44
PROVIDERS: Student in an Organized Health Care Education/Training Program; PCP Nurse Practitioner Family; Visit Provider Nurse Practitioner Family
DX: M17.12 Unilateral primary osteoarthritis, left knee (principal); Z01.818 Encounter for other preprocedural examination; E83.42 Hypomagnesemia
CPT/HCPCS: 36415; 80048; 85027; 83036; 83735; 83880

== ENCOUNTER 2023-04-12 10:25 | Emergency (ER) | payer MEDICARE, SELFPAY ==
[2023-04-12 10:33] VITALS: BP 134/82; PULSE 70; RESP 16; TEMP 36.8; O2SAT 97
--- NOTE | 2023-04-12 10:42 | W.ED.GENAD ---
Discharge Plan Disposition Patient Disposition: Home Discharge Details Clinical Impression: Fall Primary Care Provider: Rio Garcia ED Provider: Nilo Concepcion Home Meds and New Rx's Prescriptions: New cyclobenzaprine 10 mg tablet 10 mg PO TID PRN (Reason: muscle spasm) Qty: 30 0RF Continued rosuvastatin [Crestor] 10 mg tablet 10 mg PO DAILY Qty: 90 3RF insulin glargine [Lantus Solostar U-100 Insulin] 100 unit/mL (3 mL) insulin pen 18 unit subcut HS Qty: 3 12RF apixaban 5 mg tablet 5 mg PO BID Qty: 180 4RF metoprolol succinate 25 mg tablet extended release 24 hr 25 mg PO DAILY Qty: 90 3RF tramadol 50 mg tablet 50 mg PO Q6H PRN MDD 4 tab Qty: 28 0RF pregabalin 25 mg capsule 25 mg PO BID Qty: 180 0RF (DME) blood-glucose meter [FreeStyle Lite Meter] 1 EACH kit 1 ea Miscellaneous DIRECTED Qty: 1 0RF Rx Instructions: DX: 250.01 (DME) pen needle, diabetic 31 gauge x 1/3 needle 1 ndl Sub-Q DAILY Qty: 100 4RF Rx Instructions: 31G X 5/16 B/D INSULIN PEN NEEDLE (DME) FreeStyle Lite Strips Strip 1 ea Miscellaneous TID Qty: 300 3RF Rx Instructions: DX: E11.9; ON INSULIN (Z79.4) TID testing (DME) lancets [FreeStyle Lancets] 28 gauge misc 1 ea Sub-Q TID Qty: 300 3RF Rx Instructions: DX: E11.9 ON INSULIN (Z79.4) TID testing amlodipine 5 mg tablet 5 mg PO DAILY Qty: 3 0RF glipizide 10 mg tablet 5 mg PO BID Qty: 3 0RF lamotrigine 50 mg tablet extended release 24hr 50 mg PO DAILY Qty: 3 0RF losartan 100 mg tablet 100 mg PO DAILY Qty: 3 0RF metformin 1,000 mg tablet 1,000 mg PO BID Qty: 6 0RF Rx Instructions: ONE tab BID (note mg change) cyclobenzaprine 5 mg tablet See Rx Instructions .ROUTE .COMPLEX Qty: 60 0RF Dose Instruction: TAKE ONE TABLET BY MOUTH AT BEDTIME NEEDED FOR MUSCLE SPASM Rx Instructions: TAKE ONE TABLET BY MOUTH AT BEDTIME NEEDED FOR MUSCLE SPASM lamotrigine 25 mg tablet 25 mg PO HS Qty: 90 1RF Rx Instructions: to add to 50 mg dose at bedtime escitalopram oxalate 20 mg tablet 20 mg PO DAILY Qty: 90 3RF Discharge Instructions Instructions: Cyclobenzaprine (By mouth), Back Pain (ED), Rib Contusion (ED) Additional Instructions: You were seen in the emergency department for your mechanical fall at home while tripping over an electrical cord. There is no acute intracranial hemorrhage, no vertebral fracture and any part of your spine, no rib fractures. This is likely all muscle spasm and rib contusion causing your pain. Please take 1000 mg of Tylenol every 6 hours without missing doses, use your at home tramadol for pain control, use the provided to go bottle of oxycodone sparingly for breakthrough pain, these will cause an increased fall risk and it is a side effect to become rather lightheaded at your age from these medications. I have also sent to cyclobenzaprine for muscle relaxation, use this combined with gentle heat and topical lidocaine patches to control your pain. Please be very careful as I counseled you and your family on the increased fall risk with these medicines. Everyone agreed in conversation that you would be supervised, will be more comfortable to sleep in a recliner chair for the time being. Please follow-up with orthopedics/spine for continued back pain despite treatment. Please return to the emergency department for any alteration from baseline mentation, complete numbness or inability to use your legs, developing fever and cough. Referrals: Rio Garcia NP [Primary Care Provider] - Medical Decision Making This dictation utilizes [id number] dictation software and may contain unedited grammatical errors. 72 y/o F presents to ED today with a chief complaint of fall at home, R side pain most in her neck/back/ribs, denies LOC/headstrike- is anticoagulated on Eliquis. Onset and characteristics include severe R side pain and back pain. Patients' medical history: Low back pain with radiculopathy of a chronic nature, history of right-sided sciatica, chronic pain disorder, cataracts. Family and social history: noncontributory. Pertinent exam findings / vital signs include lung CTA, pain in the right ribs diffusely without crepitus or flail segment, right lateral neck pain with mild tenderness without crepitus or step-off to C7, diffuse midline vertebral pain without crepitus or step off in the thoracic and lumbar regions, right paraspinal lumbar tenderness, no saddle anesthesia, moving all extremities without issue. Differential / pathologies of concern include [ ]. Diagnostic studies of: -CT Head wo, CT Chest wo, CT C-T-L Spine wo. -no acute fractures vertebral or ribs Interventions of: -C-spine precautions initiated, 10mg oxycodone. -outpatient Rx cyclobenzaprine -to-go bottle oxycodone to use for breakthrough pain ED Course: Patient suffered a mechanical fall tripping over a cord at home, has significant acute on chronic lower back pain, midline vertebral pain and thoracic and lower cervical region as well as right rib pain, CTs are negative for any acute fracture they do see her old right rib fractures which she confirms and remote history. Patient has clear lungs throughout, has chronic treatment for chronic pain syndrome and repeatedly asked for more narcotic pain relief I did advise her that this was not an ideal medicine as it would increase her fall risk. She was adamant for more pain relief. I advised consistent Tylenol dosing as she is anticoagulated as well as ice packs and provided 4 tablets of 5 mg oxycodone to go for breakthrough pain on top of her chronic tramadol. I did advise her that I could prescribe a muscle relaxer but she needs to be very careful walking around the home as this would also increase the fall risk, her family states that she would always have someone with her who can help her. She has follow-up for separate issue with orthopedics in the coming weeks. I did ask her to follow-up with them for any persistent back pain and visits with physical therapy for lumbar radiculopathy. Findings not consistent with vertebral fracture, cord or column injury, intracranial hemorrhage, rib fracture, head trauma, the patient was able to ambulate from the department without issue. Disposition of Mechanical Fall. Patient verbalized understanding of the plan and return to ED criteria and engaged in shared decision making. Medical Records Medical records reviewed: Yes I reviewed the patient's medical records. Imaging Data Radiologic Study: Imaging: CT Scan Radiologist's impression: Exam(s) CT HEAD CERVICAL SPINE WO EXAM: CT HEAD CERVICAL SPINE WO CLINICAL HISTORY: fall, anticoagulated. TECHNIQUE: Imaging Protocol: Axial computed tomography images with coronal and sagittal reformatted images were created and reviewed COMPARISON: CT CT HEAD CERV SPINE FACIAL WO from 12/07/2019 FINDINGS: CT Head: Ventricles and Extra axial spaces: Normal in size and morphology for the patient's age. Hemorrhage: None. Cerebral parenchyma: No acute territorial infarct. No mass effect. Midline shift: None. Brainstem/Cerebellum: Normal. Calvarium: Normal. Visualized Paranasal sinuses/Mastoids: Mild mucosal thickening in the right maxillary sinus. The remaining visualized paranasal sinuses and mastoid air cells are clear. No air-fluid levels are present. Soft Tissues: Unremarkable. CT Cervical Spine: Bones: No acute fracture or subluxation. There are degenerative changes seen in the cervical spine. Soft Tissues: Unremarkable. IMPRESSION: 1. No acute intracranial process. 2. No acute fracture or subluxation in the cervical spine. Radiologic Study #2: Imaging: CT Scan Radiologist's impression: Exam(s) CT THORACIC SPINE RECONS CT CHEST WO EXAM: CT CHEST WO and CT thoracic spine recons CLINICAL HISTORY: rib and mid-back pain, fall. TECHNIQUE: Imaging protocol: Axial computed tomography images were obtained and coronal and sagittal reformatted images were created and reviewed. COMPARISON: CT RENAL COLIC WO CONTRAST from 12/04/[address] THORACIC SPINE RECONS from 04/12/2023 FINDINGS: Tracheobronchial tree: Patent where visualized. Pulmonary parenchyma: There is a nonspecific small ground-glass infiltrate in the left upper lobe. There is a 4 mm nodule in the periphery of the right lower lobe. (Series 6, image 415). There are calcified granuloma in the lungs. Mediastinum and Juhi: No dominant adenopathy or fluid collection. The esophagus is unremarkable. Thyroid gland: Unremarkable. Pleura: No effusion or pneumothorax. Heart: The heart is not dilated. Coronary artery calcification and/or stents are present. No pericardial effusion. Aorta: Thoracic aorta non-dilated. Atherosclerosis. Upper abdomen: There is a stable 2.2 cm hypodense right adrenal nodule. This is most consistent with an adrenal adenoma. No follow-up is recommended. This is unchanged dating back to the examination from 12/04/2009. Lymph nodes: Within normal limits. Soft tissues: Unremarkable. Bones:Within normal limits for the patient's age. There are old healed right rib fractures. Thoracic spine recons: Age-appropriate degenerative changes are seen in the thoracic spine. No acute fracture or subluxation is seen. IMPRESSION: 1. No acute fracture or subluxation in the thoracic spine. 2. Very small ground-glass infiltrate in the left upper lobe which is nonspecific. Infection/atelectasis or contusion. 3. 4 mm nodule in the right lower lobe. No definite follow-up is required in low risk patients. In high risk patients (history of smoking or other risk factors), a 12 month follow-up CT scan may be obtained. (Emmanuel et al, 2017). Radiologic Study #3: Imaging: CT Scan Radiologist's impression: EXAM: CT LUMBAR SPINE WO CLINICAL HISTORY: low back pain, fall. TECHNIQUE: Imaging Protocol: Axial computed tomography images with coronal and sagittal reformatted images were created and reviewed. COMPARISON: No exams were available for comparison FINDINGS: Bones: No fractures or dislocations are seen. The alignment of the spine is normal including the thoracolumbar junction. Soft tissues: The soft tissues of the visualized abdomen and chest are unremarkable. [id number] degenerative changes are present throughout the lumbar spine. IMPRESSION: No acute fracture or subluxation in the lumbar spine. HPI General Date/Time Provider Initiated Documentation: 04/12/23 10:42. HPI Narrative: 72 year-old female presents to ED today by POV/ambulating with a chief complaint of fall at home, on thinners, struck the side of her head, with twisting throughout her R lateral neck/back/axilla, and R rib pain with onset a couple hours before arrival. Quality described as very painful to touch all over, painful cervical ROM, no radiation to LOC, vomiting, altered mentation, patient does endorse nausea immediately post-incident, and denies palpitations/chest pain/syncope at onset. Severity is described as 9/10. Palliating factors include 1g Tylenol without relief. Provoking factors include nothing specific. Events leading up to the incident/Associated Symptoms: [ ]. Patient is anticoagulated on Eliquis. Related Data Home Medications Medication Instructions Recorded Confirmed blood-glucose meter (FreeStyle ##1 06/01/17 04/12/23 Lite Meter kit) pen needle, diabetic 31 gauge x ##100 06/15/18 04/12/2305/17 blood sugar diagnostic (FreeStyle #300 strips 03/25/22 04/12/23 Lite Strips) lancets 28 gauge (FreeStyle #300 ea 03/25/22 04/12/23 Lancets) rosuvastatin 10 mg tablet (Crestor) 10 mg PO DAILY #90 tabs 05/30/22 04/12/23 amlodipine 5 mg tablet 5 mg PO DAILY #3 tabs 10/26/22 04/12/23 glipizide 10 mg tablet 5 mg (1/2 x 10 mg) PO BID #3 tabs 10/26/22 04/12/23 lamotrigine 50 mg tablet,extended 50 mg PO DAILY #3 tabs 10/26/22 04/12/23 release 24 hr losartan 100 mg tablet 100 mg PO DAILY #3 tab-caps 10/26/22 04/12/23 metformin 1,000 mg tablet 1,000 mg PO BID Diabetes #6 tabs 10/26/22 04/12/23 cyclobenzaprine 5 mg tablet See Rx Instructions .Route 12/06/22 03/29/23 .COMPLEX #60 tabs lamotrigine 25 mg tablet 25 mg PO HS #90 tabs 01/02/23 04/12/23 apixaban 5 mg tablet 5 mg PO BID #180 tabs 01/10/23 04/12/23 insulin glargine 100 unit/mL (3 18 unit (0.18 mL) subcut HS #3 pens 01/10/23 04/12/23 mL) subcutaneous pen (Lantus Solostar U-100 Insulin) escitalopram oxalate 20 mg tablet 20 mg PO DAILY #90 tabs 01/27/23 04/12/23 metoprolol succinate 25 mg 25 mg PO DAILY #90 tabs 02/13/23 04/12/23 tablet,extended release 24 hr pregabalin 25 mg capsule 25 mg PO BID #180 caps 03/29/23 04/12/23 tramadol 50 mg tablet 50 mg PO Q6H PRN pain #28 tab-caps 03/29/23 04/12/23 cyclobenzaprine 10 mg tablet 10 mg PO TID PRN muscle spasm #30 04/12/23 tabs Previous Rx's Medication Instructions Recorded blood-glucose meter (FreeStyle ##1 06/01/17 Lite Meter kit) pen needle, diabetic 31 gauge x ##100 06/15/1805/17 blood sugar diagnostic (FreeStyle #300 strips 03/25/22 Lite Strips) lancets 28 gauge (FreeStyle #300 ea 03/25/22 Lancets) rosuvastatin 10 mg tablet (Crestor) 10 mg PO DAILY #90 tabs 05/30/22 amlodipine 5 mg tablet 5 mg PO DAILY #3 tabs 10/26/22 glipizide 10 mg tablet 5 mg (1/2 x 10 mg) PO BID #3 tabs 10/26/22 lamotrigine 50 mg tablet,extended 50 mg PO DAILY #3 tabs 10/26/22 release 24 hr losartan 100 mg tablet 100 mg PO DAILY #3 tab-caps 10/26/22 metformin 1,000 mg tablet 1,000 mg PO BID Diabetes #6 tabs 10/26/22 cyclobenzaprine 5 mg tablet See Rx Instructions .Route 12/06/22 .COMPLEX #60 tabs lamotrigine 25 mg tablet 25 mg PO HS #90 tabs 01/02/23 apixaban 5 mg tablet 5 mg PO BID #180 tabs 01/10/23 insulin glargine 100 unit/mL (3 18 unit (0.18 mL) subcut HS #3 pens 01/10/23 mL) subcutaneous pen (Lantus Solostar U-100 Insulin) escitalopram oxalate 20 mg tablet 20 mg PO DAILY #90 tabs 01/27/23 metoprolol succinate 25 mg 25 mg PO DAILY #90 tabs 02/13/23 tablet,extended release 24 hr pregabalin 25 mg capsule 25 mg PO BID #180 caps 03/29/23 tramadol 50 mg tablet 50 mg PO Q6H PRN pain #28 tab-caps 03/29/23 cyclobenzaprine 10 mg tablet 10 mg PO TID PRN muscle spasm #30 04/12/23 tabs Allergies Allergy/AdvReac Type Severity Reaction Status Date / Time lisinopril AdvReac cough Verified 04/12/23 11:35 General Stated Complaint: Fall/Non TraumaCriteria TOBY: 3 Review of Systems All systems reviewed & are unremarkable except as noted in HPI and below PFSH All Active Problems (Updated 04/12/23 @ 14:14 by YOUSUF Hernandez) Fall (Acute) Pedal edema (Acute) Hypomagnesemia (Acute) Diabetes mellitus (Chronic 03/13/15) Essential hypertension (Chronic 03/20/13) Right hip pain (Chronic 03/13/15) DJD, s/p THR [facility] [place] 04/28 Primary fibromyalgia syndrome (Chronic) fibromyalgia Palpitations (Chronic 11/27/14) 11/26 Holter, multiple PACs Obesity (BMI 30-39.9) (Chronic 11/04/15) Knee pain (Chronic) left, DJD (08/27 [facility] ortho eval, needs TKR) Kidney stone (Chronic) August [address] at [facility]: 2 non-obstructing stone in the right kidney Lithotripsy 11/27/20 US at [facility] *10mm nonobstructing renal calculi *Inf. pole cyst in the LEFT kidney * Echogenic foci through out both kidneys: indeterminant but may be vascular calcification *Bladder is normal Hyperlipidemia (Chronic 09/06/12) Hernia of anterior abdominal wall (Chronic 05/23/17) Family hx-breast malignancy (Chronic) Family hx of colon cancer (Chronic) Anemia, iron deficiency (Chronic 04/22/14) Transaminasemia (Acute 04/13/02) Right upper quadrant pain (Chronic) intermittent Pilonidal cyst without abscess (Acute 04/18/13) Mucous polyp of cervix (Acute) Mild nonproliferative diabetic retinopathy (Acute 04/23/14) GERD without esophagitis (Chronic) [id number]. Off Omeprazole for months, symptoms returned. Omeprazole 20mg PRN re-started. Epigastric abdominal pain (Acute) Left foot pain (Acute) after fall in July 2022 Bipolar 2 disorder (Acute) Left knee DJD (Acute) Degenerative joint disease of right knee (Acute) Laceration of right knee (Chronic) 1994 Tear of cartilage of left knee (Acute) s/p open cartilage repair 1974 Atrial fibrillation (Chronic) Medical History Dysphagia Cortical cataract of right eye Nuclear sclerotic cataract of right eye Cataract Low back pain potentially associated with radiculopathy Paronychia of great toe of left foot Depressive disorder Low back pain with right-sided sciatica Pain of left thigh (06/01/17) Peptic reflux disease Shoulder pain (11/04/15) Chronic pain disorder (09/25/17) Surgical History History of cataract surgery Nuclear age-related cataract, right eye Cortical age-related cataract, right eye Cortical age-related cataract, left eye Nuclear age-related cataract, left eye Ligation of fallopian tube Hysterectomy, Laproscopic DUB; has cervix and ovaries HIP REPLACEMENT [facility]; PARTIAL Family History Mother , AGE 82 Diabetes Essential hypertension Heart disease Hyperlipidemia Cancer Father , AGE 80 Alcohol abuse Essential hypertension Heart disease Sister , AGE 45 Breast cancer Sister , AGE 51 Colon cancer Brother , 30 Neoplasm Son Essential hypertension Maternal Grandmother , 93 Breast cancer Son No problems noted. Daughter No problems noted. Other Family hx of colon cancer Family hx-breast malignancy Social History Smoking/Tobacco Use Status: Never Second Hand Exposure: Yes Smoking risk assessment performed?: Yes Alcohol Intake: current Alcohol Intake frequency: holidays/special occasions only Drug use: Never Substance use type: does not use Counseling given: No Counseling provided: none Caregiver/Support person: No Household members: significant other Housing: house Number of Children: 3 number of grandchildren: 7 Communication Needs: None Do you need help understanding health information?: Rarely Pets and animals: Yes Pets and animals: cat(s) and dog(s) Sexually active: No Do you think of yourself as: straight/heterosexual Current gender identity: female What is your relationship status?: How often do you talk on the phone with friends or family?: three or more times per week How often do you get together with friends or relatives?: decline to answer How often do you attend mandaen or synagogue services?: decline to answer Do you belong to any clubs or organized social groups?: no Panel score (0-1 are the most socially isolated patients): 2 What type of physical activity do you participate in: decline to answer Duration: decline to answer Frequency: decline to answer Marlin/Anabaptism: No preference Special marlin needs: No Seatbelt use: always Helmet use: No Drive intox or ride w/intox milk wagon driver: No Working smoke detector in home: Yes Carbon monox detector in home: Yes Firearms in home: Yes Firearms unloaded and locked: Yes Do you feel safe at home: Yes Do you feel safe in your relationship?: Yes Exam Narrative Exam Narrative: GENERAL APPEARANCE: Well-nourished, non-toxic, awake and alert, atraumatic, no acute distress. SKIN: Warm, pink, dry, intact, without rashes/lesions/ulcerations. HEAD: Normocephalic, atraumatic, normal hair distribution for gender/age. EYES: Pupils PERRLA, EOMs intact without nystagmus, normal conjunctiva, no exudates on lids/lashes. ENT: Nares patent, no circumoral cyanosis, no facial swelling NECK: Supple, trachea midline, mild painful cervical ROM in R trapezius. LUNGS/CHEST: Lungs CTA bilaterally- no rhonchi/rales/wheezes diffusely, non-labored respirations, normal A/P diameter, symmetrical expansion, no chest wall deformit, no flail segment, no paradoxical motion HEART (CV/PV): Regular rate and rhythm without murmur, no peripheral edema, no JVD. ABDOMEN: Soft, non-distended, no guarding. MSK: Normal ROM, no swelling/deformity to bilateral UEs or LEs, moving all extremities without weakness, no cyanosis, spine midline without tenderness, normal curvature. Pain in the right ribs diffusely without crepitus or flail segment, right lateral neck pain with mild tenderness without crepitus or step-off to C7, diffuse midline vertebral pain without crepitus or step off in the thoracic and lumbar regions, right paraspinal lumbar tenderness, no saddle anesthesia, moving all extremities without issue. NEURO: Mental Status AAOx4 - alert to person, place, time, events No facial droop, no forehead involvement. Motor: No focal weakness - strength 5/5 in bilateral UEs and LEs, proximal and distal, symmetric. Sensory: sensation intact to light touch globally. Gait normal: patient ambulated without ataxia into ED room. PSYCH: euthymic, cooperative, pleasant, appropriate speech Course Vital Signs Vital signs: Vital Signs Temperature 36.8 C 04/12/23 10:33 Pulse 70 04/12/23 10:33 Respiratory Rate 16 04/12/23 10:33 Blood Pressure 134/82 04/12/23 10:33 Pulse Oximetry 97 04/12/23 10:33 Temperature 36.8 C 04/12/23 10:33 Temperature Source Tympanic 04/12/23 10:33 Pulse 70 04/12/23 10:33 Respiratory Rate 16 04/12/23 10:33 Blood Pressure 134/82 04/12/23 10:33 Pulse Oximetry 97 04/12/23 10:33 Oxygen Delivery Method Room Air 04/12/23 10:33 Oxygen Flow Rate 0 04/12/23 10:33
--- NOTE | 2023-04-12 11:30 | DI.CT_ITS ---
Exam(s) CT LUMBAR SPINE WO EXAM: CT LUMBAR SPINE WO CLINICAL HISTORY: low back pain, fall. TECHNIQUE: Imaging Protocol: Axial computed tomography images with coronal and sagittal reformatted images were created and reviewed. COMPARISON: No exams were available for comparison FINDINGS: Bones: No fractures or dislocations are seen. The alignment of the spine is normal including the thor acolumbar junction. Soft tissues: The soft tissues of the visualized abdomen and chest are unremarkable. Bzhk-ki-xthqhicz degenerative changes are present throughout the lumbar spine. IMPRESSION: No acute fracture or subluxation in the lumbar spine. RADIATION DOSE DELIVERED: Total DLP Total DLP DATA REPOSITORY: All CT scans at this facility are submitted to the National Radiology Data Registry (NRDR) Dose Index Registry (DIR) with the [employer] (A[employer]). RADIATION OPTIMIZATION: All CT scans at this facility use at least one of these dose optimization te chniques: automated exposure control; mA and/or kV adjustment per patient size (includes targeted exa ms where dose is matched to clinical indication); or iterative reconstruction.
--- NOTE | 2023-04-12 11:30 | DI.CT_ITS ---
Exam(s) CT HEAD CERVICAL SPINE WO EXAM: CT HEAD CERVICAL SPINE WO CLINICAL HISTORY: fall, anticoagulated. TECHNIQUE: Imaging Protocol: Axial computed tomography images with coronal and sagittal reformatted images were created and reviewed COMPARISON: CT CT HEAD CERV SPINE FACIAL WO from 12/07/2019 FINDINGS: CT Head: Ventricles and Extra axial spaces: Normal in size and morphology for the patient's age. Hemorrhage: None. Cerebral parenchyma: No acute territorial infarct. No mass effect. Midline shift: None. Brainstem/Cerebellum: Normal. Calvarium: Normal. Visualized Paranasal sinuses/Mastoids: Mild mucosal thickening in the right maxillary sinus. The rem aining visualized paranasal sinuses and mastoid air cells are clear. No air-fluid levels are present . Soft Tissues: Unremarkable. CT Cervical Spine: Bones: No acute fracture or subluxation. There are degenerative changes seen in the cervical spine. Soft Tissues: Unremarkable. IMPRESSION: 1. No acute intracranial process. 2. No acute fracture or subluxation in the cervical spine. RADIATION DOSE DELIVERED: Total DLP DATA REPOSITORY: All CT scans at this facility are submitted to the National Radiology Data Registry (NRDR) Dose Index Registry (DIR) with the [employer] (ACR). RADIATION OPTIMIZATION: All CT scans at this facility use at least one of these dose optimization te chniques: automated exposure control; mA and/or kV adjustment per patient size (includes targeted exa ms where dose is matched to clinical indication); or iterative reconstruction.
[2023-04-12] MEDS: oxyCODONE 5 MG TAB PO ×2 (11:37→13:10)
--- NOTE | 2023-04-12 11:47 | DI.CT_ITS ---
Exam(s) CT THORACIC SPINE RECONS CT CHEST WO EXAM: CT CHEST WO and CT thoracic spine recons CLINICAL HISTORY: rib and mid-back pain, fall. TECHNIQUE: Imaging protocol: Axial computed tomography images were obtained and coronal and sagittal reformatted images were created and reviewed. COMPARISON: CT RENAL COLIC WO CONTRAST from 12/04/[address] THORACIC SPINE RECONS from 04/12/2023 FINDINGS: Tracheobronchial tree: Patent where visualized. Pulmonary parenchyma: There is a nonspecific small ground-glass infiltrate in the left upper lobe. T here is a 4 mm nodule in the periphery of the right lower lobe. (Series 6, image 415). There are ca lcified granuloma in the lungs. Mediastinum and Juhi: No dominant adenopathy or fluid collection. The esophagus is unremarkable. Thyroid gland: Unremarkable. Pleura: No effusion or pneumothorax. Heart: The heart is not dilated. Coronary artery calcification and/or stents are present. No pericar dial effusion. Aorta: Thoracic aorta non-dilated. Atherosclerosis. Upper abdomen: There is a stable 2.2 cm hypodense right adrenal nodule. This is most consistent wit h an adrenal adenoma. No follow-up is recommended. This is unchanged dating back to the examination from 12/04/2009. Lymph nodes: Within normal limits. Soft tissues: Unremarkable. Bones:Within normal limits for the patient's age. There are old healed right rib fractures. Thoracic spine recons: Age-appropriate degenerative changes are seen in the thoracic spine. No acute fracture or subluxation is seen. IMPRESSION: 1. No acute fracture or subluxation in the thoracic spine. 2. Very small ground-glass infiltrate in the left upper lobe which is nonspecific. Infection/atelect asis or contusion. 3. 4 mm nodule in the right lower lobe. No definite follow-up is required in low risk patients. In high risk patients (history of smoking or other risk factors), a 12 month follow-up CT scan may be ob tained. (Emmanuel et al, 2017). RADIATION DOSE DELIVERED: Total DLP DATA REPOSITORY: All CT scans at this facility are submitted to the National Radiology Data Registry (NRDR) Dose Index Registry (DIR) with the [employer] (A[employer]). RADIATION OPTIMIZATION: All CT scans at this facility use at least one of these dose optimization te chniques: automated exposure control; mA and/or kV adjustment per patient size (includes targeted exa ms where dose is matched to clinical indication); or iterative reconstruction.
== END 2023-04-12 14:32 | disposition home or self-care (01) ==
PROVIDERS: Emergency Provider Physician Assistant; PCP Nurse Practitioner Family
DX: M54.50 Low back pain, unspecified (principal); S09.90XA Unspecified injury of head, initial encounter; W01.0XXA Fall on same level from slipping, tripping and stumbling without subsequent striking against object, initial encounter; Z79.01 Long term (current) use of anticoagulants; M54.16 Radiculopathy, lumbar region; G89.29 Other chronic pain; R91.1 Solitary pulmonary nodule; I48.91 Unspecified atrial fibrillation; E11.9 Type 2 diabetes mellitus without complications; I10 Essential (primary) hypertension; Z79.899 Other long term (current) drug therapy; Z79.4 Long term (current) use of insulin; Z79.84 Long term (current) use of oral hypoglycemic drugs; E78.5 Hyperlipidemia, unspecified
CPT/HCPCS: 71250; 99284; 70450; 72125; 72131

== ENCOUNTER 2023-04-26 09:22 | Outpatient (REF) | payer MEDICARE, SELFPAY ==
[2023-04-26 12:17] LABS: HCT 36.2 % (36.0-46.0); HGB 12.4 g/dL (11.2-15.7); MCH 29.6 pg (27.0-33.0); MCHC 34.3 % (32.0-36.0); MCV 86 fL (80-95); MPV 10.2 fL (8.0-11.0); Platelet Count 284 10^3/uL (130-400); RBC 4.19 10^6/uL (3.93-5.22); RDW 12.5 % (11.7-14.6); WBC 11.07 10^3/uL (4.4-10.8)
[2023-04-26 12:40] LABS: Anion Gap 8.9 mmol/L (3-11); BUN 14 mg/dL (7-18); CO2 28.1 mmol/L (21.0-32.0); CREATININE 1.1 mg/dL (0.55-1.02); Calcium 9.8 mg/dL (8.5-10.1); Chloride 101 mmol/L (98-107); Estimated GFR 54.06 (mL/min/1.73m2); Glucose 233 mg/dL (74-106); Magnesium 1.4 mg/dL (1.8-2.4); NT-proBNP 1041 pg/mL (<300); Potassium 4.8 mmol/L (3.5-5.1); Sodium 138 mmol/L (136-145)
[2023-04-26 22:13] LABS: Epithelial Cells Few HPF (Negative); Other Cells Few Transitional (Negative); RBC 20-50 HPF (0-2); WBC 0-2 HPF (0-5)
[2023-04-26 22:14] LABS: Bacteria Negative HPF (Negative); C & S Indicated? No; Casts 0-2 Hyaline LPF (Negative); Crystals Negative HPF (Negative); Mucus Negative (Negative)
== END 2023-04-26 09:23 | disposition home or self-care (01) ==
LOC: LBN 09:22
PROVIDERS: PCP Nurse Practitioner Family; Visit Provider Nurse Practitioner Family
DX: I50.9 Heart failure, unspecified (principal); R60.0 Localized edema; D50.9 Iron deficiency anemia, unspecified; E83.42 Hypomagnesemia; R31.9 Hematuria, unspecified
CPT/HCPCS: 80048; 85027; 81015; 83735; 83880

== ENCOUNTER → 2023-05-01 00:39 | Outpatient (CLI) | payer MEDICARE, SELFPAY ==
--- NOTE | 2023-05-01 08:15 | DI.CT_ITS ---
Exam(s) CT ABDOMEN PELVIS W EXAM: CT ABDOMEN PELVIS W CLINICAL HISTORY: RUQ pain 1 week after fall,hematuria,r31.9,w19.xxxa TECHNIQUE: Imaging Protocol: Axial computed tomography images with coronal and sagittal reformatted images were created and reviewed CONTRAST MATERIAL: Intravenous: Omnipaque 350 Contrast volume:100 mL Oral: Yes COMPARISON: CT RENAL COLIC WO CONTRAST from 12/04/[address] CHEST WO from 04/12/[address] LUMBAR SPINE WO from 04/12/[address] THORACIC SPINE RECONS from 04/12/2023 FINDINGS: ABDOMEN: Lung Bases: There is a stable 4 mm nodule in the periphery of the right lower lobe. (Series 5, image 47. There is no evidence of a basilar pneumothorax. Liver: Normal density. There is a tiny cyst in the caudate lobe. Portal, Superior Mesenteric, and Splenic Veins: Unremarkable. Gallbladder and Biliary Tract: No radiodense calculus or dilation. Pancreas: Normal density, no abnormal calcifications or inflammatory process. Spleen: Normal. Adrenals: There is a stable 2.4 x 2.4 cm right adrenal mass. This likely reflects an adrenal adenoma . No follow-up is recommended. Kidneys: Normal size, contour and axis. Right nephrolithiasis. No obstructive uropathy. No masses s een. Abdominal Aorta: Abdominal portion non-dilated. Atherosclerosis. Bowel: No obstruction or bowel wall thickening. The stomach is incompletely distended limiting evalua tion. No evidence of appendicitis. Peritoneal Cavity: No ascites, collection or mesenteric inflammatory response. No free air. Lymph Nodes: Within normal limits. Bones: Within normal limits for the patient's age. The patient has a right total hip replacement. N o acute or healing fractures. Soft Tissues: Unremarkable. PELVIS: Bladder: There is mild thickening of the wall of the urinary bladder. The urinary bladder is incompl etely distended. Reproductive Organs: Status post hysterectomy. Lymph Nodes: Within normal limits. Bones: Within normal limits for the patient's age. IMPRESSION: 1. The kidneys show normal and symmetric enhancement. No evidence of a laceration. 2. Right nephrolithiasis. No evidence of obstructive uropathy. 3. Thickening of the wall of the urinary bladder. This may be due to incomplete distension or cystit is. Please correlate clinically. 4. 4 mm right lower lobe pulmonary nodule. In high risk patients (history of smoking or other risk f actors), a 12 month follow-up CT scan may be warranted. (Emmanuel et al, 2017). RADIATION DOSE DELIVERED: Total DLP DATA REPOSITORY: All CT scans at this facility are submitted to the National Radiology Data Registry (NRDR) Dose Index Registry (DIR) with the [employer] (ACR). RADIATION OPTIMIZATION: All CT scans at this facility use at least one of these dose optimization te chniques: automated exposure control; mA and/or kV adjustment per patient size (includes targeted exa ms where dose is matched to clinical indication); or iterative reconstruction.
[2023-05-01] MEDS: Barium Sulfate 2% W/V-Berry Smoothie 450 ML BTL 900 ML PO (13:49)
[2023-05-01] MEDS: Normal Saline - Diluent 50 ML VIAL IJ (13:49)
[2023-05-01] MEDS: Omnipaque 350 MG/ML 100 ML BTL IJ (13:50)
== END ==
PROVIDERS: PCP Nurse Practitioner Family; Visit Provider Nurse Practitioner Family
DX: R31.9 Hematuria, unspecified (principal); W19.XXXA Unspecified fall, initial encounter; N20.0 Calculus of kidney; R91.1 Solitary pulmonary nodule
CPT/HCPCS: 74177; J3490

== ENCOUNTER 2023-05-04 14:06 | Outpatient (REF) | payer MEDICARE, SELFPAY ==
[2023-05-04 13:02] LABS: Bilirubin Negative (Negative); Blood Negative (Negative); Clarity Clear (Clear); Glucose Negative (Negative); Ketones Negative (Negative); Leukocyte Esterase Negative (Negative); Nitrite Negative (Negative); Urobilinogen 0.2 mg/dL (Up to 0.2)
== END 2023-05-04 14:07 | disposition home or self-care (01) ==
LOC: LBN 14:06
PROVIDERS: PCP Nurse Practitioner Family; Visit Provider Nurse Practitioner Family
DX: R31.9 Hematuria, unspecified (principal)
CPT/HCPCS: 81003

== ENCOUNTER 2023-05-17 16:09 | Observation (INO) | payer MEDICARE, SELFPAY ==
[2023-05-17] VITALS (18 sets, daily range): BP systolic 87–156; BP diastolic 37–88; PULSE 81–125; RESP 11–21; TEMP 36–37; O2SAT 92–100; BMI 34.6
[2023-05-17] MEDS: Acetaminophen 500 MG TAB 1000 MG PO ×2 (07:00→16:14)
[2023-05-17] MEDS: Celecoxib 200 MG CAP 400 MG PO (07:00)
[2023-05-17] MEDS: Gabapentin 300 MG CAP PO ×2 (07:01→21:22)
[2023-05-17] MEDS: Lactated Ringers 1,000 ML 80 ML IV (07:05)
--- NOTE | 2023-05-17 07:14 | W.ANESPRE ---
General Info Date of Service Date Performed: 05/17/23 Height: 5 ft 4 in Weight: 91.5 kg Body Mass Index (BMI): 34.6 Surgical Procedure: Operation Date: 05/17/23 07:40 Proposed Procedure Side Surgeon p Knee Total Arthroplasty w/OrthAlign, Cementless CR Left Lonnie Mariscal MD Meds Allergies and Home Medications Allergies Allergy/AdvReac Type Severity Reaction Status Date / Time lisinopril AdvReac cough Verified 05/17/23 07:26 Home Medication Medication Instructions Recorded blood-glucose meter (FreeStyle ##1 06/01/17 Lite Meter kit) pen needle, diabetic 31 gauge x ##100 06/15/1805/17 blood sugar diagnostic (FreeStyle #300 strips 03/25/22 Lite Strips) lancets 28 gauge (FreeStyle #300 ea 03/25/22 Lancets) rosuvastatin 10 mg tablet (Crestor) 10 mg PO DAILY #90 tabs 05/30/22 amlodipine 5 mg tablet 5 mg PO DAILY #3 tabs 10/26/22 glipizide 10 mg tablet 5 mg (1/2 x 10 mg) PO BID #3 tabs 10/26/22 metformin 1,000 mg tablet 1,000 mg PO BID Diabetes #6 tabs 10/26/22 cyclobenzaprine 5 mg tablet See Rx Instructions .Route 12/06/22 .COMPLEX #60 tabs lamotrigine 25 mg tablet 25 mg PO HS #90 tabs 01/02/23 apixaban 5 mg tablet 5 mg PO BID #180 tabs 01/10/23 insulin glargine 100 unit/mL (3 18 unit (0.18 mL) subcut HS #3 pens 01/10/23 mL) subcutaneous pen (Lantus Solostar U-100 Insulin) escitalopram oxalate 20 mg tablet 20 mg PO DAILY #90 tabs 01/27/23 metoprolol succinate 25 mg 25 mg PO DAILY #90 tabs 02/13/23 tablet,extended release 24 hr cyclobenzaprine 10 mg tablet 10 mg PO TID PRN muscle spasm #30 04/12/23 tabs losartan 100 mg tablet 100 mg PO DAILY #90 tab-caps 04/22/23 pregabalin 25 mg capsule 25 mg PO BID #180 caps 04/28/23 furosemide 20 mg tablet 20 mg PO DAILY #90 tabs 05/01/23 magnesium oxide 500 mg tablet 500 mg PO DAILY #90 tabs 05/01/23 lamotrigine 100 mg tablet 100 mg PO DAILY #90 tab-caps 05/16/23 lamotrigine 50 mg tablet,extended 50 mg PO DAILY #90 tabs 05/16/23 release 24 hr acetaminophen 500 mg tablet 1,000 mg (2 x 500 mg) PO TID #90 05/17/23 tabs celecoxib 200 mg capsule 200 mg PO BID #60 caps 05/17/23 dexamethasone 4 mg tablet 4 mg PO DAILY #2 tabs 05/17/23 gabapentin 300 mg capsule 300 mg PO QHS #14 caps 05/17/23 oxycodone 5 mg tablet 5 mg PO Q4H PRN pain #20 tabs 05/17/23 pantoprazole 40 mg tablet,delayed 40 mg PO DAILY #30 tabs 05/17/23 release Current Visit Medications: Current Medications Generic Name Dose Route Start Last Admin Trade Name Freq PRN Reason Stop Dose Admin Acetaminophen 1,000 mg 05/17/23 06:00 05/17/23 07:00 Acetaminophen 500 Mg Tab PO 05/17/23 16:00 1,000 mg PREOP ILIANA Administration Celecoxib 400 mg 05/17/23 06:00 05/17/23 07:00 Celecoxib 200 Mg Cap PO 05/17/23 16:00 400 mg PREOP ILIANA Administration Gabapentin 300 mg 05/17/23 06:00 05/17/23 07:01 Gabapentin 300 Mg Cap PO 05/17/23 16:00 300 mg PREOP ILIANA Administration Tranexamic Acid 1,000 mg/ 60 mls @ 360 mls/hr 05/17/23 06:00 Sodium Chloride IVPB 05/17/23 16:00 PREOP ILIANA Ringer's Solution 1,000 mls @ 80 mls/hr 05/17/23 06:00 05/17/23 07:05 IV 05/17/23 23:59 80 mls/hr INFUSION ILIANA Administration Cefazolin Sodium/Dextrose 2 gm in 50 mls @ 100 mls/hr 05/17/23 06:00 Ancef Duplex IVPB 05/17/23 23:59 PREOP ILIANA IV Miscellaneous Supplies 1 each 05/17/23 06:00 Iv Access IV 05/17/23 23:59 DIRECTED ILIANA Sodium Chloride 0 ml 05/17/23 06:00 Normal Saline Flush 10 Ml Syr IV 05/17/23 23:59 PRN PRN Sodium Chloride 0 ml 05/17/23 06:00 Normal Saline 10 Ml Vial IJ 05/17/23 23:59 DIRECTED PRN Sterile Water 0 ml 05/17/23 06:00 Water,Injection,Sterile 10 Ml Vial IJ 05/17/23 23:59 DIRECTED PRN PFSH Active Problems Active Problems: Problem Status Onset Code Hematuria R31.9 Mitral regurgitation I34.0 Pedal edema R60.0 Hypomagnesemia E83.42 Diabetes mellitus 03/13/15 E11.9 Essential hypertension 03/20/13 I10 Right hip pain 03/13/15 M25.551 Primary fibromyalgia syndrome M79.7 Palpitations 11/27/14 R00.2 Obesity (BMI 30-39.9) 11/04/15 E66.9 Knee pain M25.569 Kidney stone N20.0 Hyperlipidemia 09/06/12 E78.5 Hernia of anterior abdominal wall 05/23/17 K43.9 Family hx-breast malignancy Z80.3 Family hx of colon cancer Z80.0 Anemia, iron deficiency 04/22/14 D50.9 Transaminasemia 04/13/02 R74.0 Right upper quadrant pain R10.11 Pilonidal cyst without abscess 04/18/13 L05.91 Mucous polyp of cervix N84.1 Mild nonproliferative diabetic retinopathy 04/23/14 E11.3299 GERD without esophagitis K21.9 Epigastric abdominal pain R10.13 Left foot pain M79.672 Bipolar 2 disorder F31.81 Left knee DJD M17.12 Degenerative joint disease of right knee M17.11 Laceration of right knee S81.011A Tear of cartilage of left knee S83.207A Atrial fibrillation I48.91 Medical History Medical History Dysphagia Cortical cataract of right eye Nuclear sclerotic cataract of right eye Cataract Low back pain potentially associated with radiculopathy Paronychia of great toe of left foot Depressive disorder Low back pain with right-sided sciatica Pain of left thigh (06/01/17) Peptic reflux disease Shoulder pain (11/04/15) Chronic pain disorder (02/06/17) Surgical History Surgical History History of cataract surgery Nuclear age-related cataract, right eye Cortical age-related cataract, right eye Cortical age-related cataract, left eye Nuclear age-related cataract, left eye Ligation of fallopian tube Hysterectomy, Laproscopic DUB; has cervix and ovaries HIP REPLACEMENT [facility] [place]; PARTIAL Tobacco Smoking/Tobacco Use Status: Never Passive smoking exposure: Yes Second hand exposure: Yes Alcohol Alcohol Intake: current Alcohol intake frequency: holidays/special occasions only Substance Use Substance use: Never Substance use type: does not use Counseling provided: none Vital Signs and Lab Results Vital Signs Most Recent Vital Signs in EMR: Most Recent Vital Signs Temp Pulse Resp BP Pulse Ox 36.4 C L 125 H 16 147/83 H 98 05/17/23 06:55 05/17/23 06:55 05/17/23 06:55 05/17/23 06:55 05/17/23 06:55 Point of Care Results Point of Care Results: Finger Stick Blood Glucose 223 05/17/23 07:07 Lab Results Blood Type / Crossmatch: No Data to Display Complete Blood Count: White Blood Count 11.07 10^3/uL (4.4-10.8) H 04/26/23 08:05 Red Blood Count 4.19 10^6/uL (3.93-5.22) 04/26/23 08:05 Hemoglobin 12.4 g/dL (11.2-15.7) 04/26/23 08:05 Hematocrit 36.2 % (36.0-46.0) 04/26/23 08:05 Platelet Count 284 10^3/uL (130-400) 04/26/23 08:05 Complete Metabolic Panel: Sodium 138 mmol/L (136-145) 04/26/23 08:05 Potassium 4.8 mmol/L (3.5-5.1) 04/26/23 08:05 Chloride 101 mmol/L (98-107) 04/26/23 08:05 Carbon Dioxide 28.1 mmol/L (21.0-32.0) 04/26/23 08:05 BUN 14 mg/dL (7-18) 04/26/23 08:05 Creatinine 1.1 mg/dL (0.55-1.02) H 04/26/23 08:05 Est GFR (CKD-EPI 2020) 54.06 (mL/min/1.73m2) 04/26/23 08:05 Magnesium 1.4 mg/dL (1.8-2.4) L 04/26/23 08:05 Calcium 9.8 mg/dL (8.5-10.1) 04/26/23 08:05 Glucose 233 mg/dL (74-106) H 04/26/23 08:05 Liver Function Panel: No Data to Display Coagulation Panel: No Data to Display Cardiac Panel: NT-Pro-B Natriuret Pep 1041 pg/mL (<300) H 04/26/23 Arterial Blood Gas: No Data to Display Venous Blood Gas: No Data to Display Pancreas Panel: No Data to Display Thyroid Panel: No Data to Display Infectious Disease: No Data to Display Blood Cultures: No Data to Display Toxicology Panel: No Data to Display Imaging and Studies Imaging and Studies Study information below may be from another EMR and interpreted by another provider. Please see original notes in EMR for more complete details. EKG Summary: Conclusion Atrial fibrillation...? atrial activity Low voltage, extremity leads...all extremity leads <0.5mV 02/13/23 Echocardiogram Summary: Conclusion Normal left ventricular wall thickness and chamber size. Ejection fraction is 55%. Wall motion is normal Normal right ventricular size and systolic function Both atria are normal in size Aortic valve is trileaflet and mildly sclerotic without stenosis or regurgitation Mild mitral annular calcification. Moderate mitral regurgitation Borderline dilated ascending aorta 3.5 cm Estimated right ventricular systolic pressure is 32 mmHg 02/10/23 Anesthesia Assessment and Plan Anesthesia History Personal History: No History of Anesthesia Complications Family History: No Family History of Anesthesia Complications Exercise Tolerance Exercise Tolerance: Metabolic Equivalents>4 Pertinent Negatives Pertinent Negatives: No Symptoms of GERD, No Major Cardiovascular Symptoms or Complaints, No Major Pulmonary Symptoms or Complaints and No History of CVA/TIA Cardiac & Pulmonary Exam Cardiac Exam: Normal S1/S2 Heart Sounds Pulmonary Exam: Clear Bilateral Breath Sounds Implantable Cardiac Device Does patient have a Pacemaker or an ICD?: No Airway Exam Known Difficult Airway: No Mallampati Class: 1 Mouth Opening: Normal (> 3cm) Thyromental Distance: Greater than 3 cm Neck Range of Motion: Full ROM Neck Circumference: Normal Teeth Condition: Removable Dentures/Plates Upper and Removable Dentures/Plates Lower ASA Classification ASA Score: ASA 2 Emergency Case?: No NPO Status NPO Status: NPO Clears >2 hours, Solids >8 hours Anesthesia Plan Resuscitation Status: Full Code Anesthesia Technique: Spinal Anesthesia Airway Planned: Natural Airway Pain Management: Surgeon and patient request nerve block Monitors Used: Standard Monitors Preoperative Comments:: Recent fall, still painful right hip/flank area
--- NOTE | 2023-05-17 07:31 | PDOC.DSDIS_ITS ---
Date of service: 05/17/23 Time of Service: 07:31 Discharge Plan Disposition Patient Disposition: Home Condition: Good Discharge Details Reason For Visit: L ANABELR Attending Provider: Lonnie Mariscal Primary Care Provider: Rio Garcia Home Meds and New Rx's Prescriptions: New acetaminophen 500 mg tablet 1,000 mg PO TID Qty: 90 3RF celecoxib 200 mg capsule 200 mg PO BID Qty: 60 0RF pantoprazole 40 mg tablet,delayed release (DR/EC) 40 mg PO DAILY Qty: 30 0RF gabapentin 300 mg capsule 300 mg PO QHS Qty: 14 0RF oxycodone 5 mg tablet 5 mg PO Q4H MDD 6 tabs PRN (Reason: pain) Qty: 20 0RF Continued rosuvastatin [Crestor] 10 mg tablet 10 mg PO DAILY Qty: 90 3RF insulin glargine [Lantus Solostar U-100 Insulin] 100 unit/mL (3 mL) insulin pen 18 unit subcut HS Qty: 3 12RF apixaban 5 mg tablet 5 mg PO BID Qty: 180 4RF metoprolol succinate 25 mg tablet extended release 24 hr 25 mg PO DAILY Qty: 90 3RF (DME) blood-glucose meter [FreeStyle Lite Meter] 1 EACH kit 1 ea Miscellaneous DIRECTED Qty: 1 0RF Rx Instructions: DX: 250.01 (DME) pen needle, diabetic 31 gauge x 1/3 needle 1 ndl Sub-Q DAILY Qty: 100 4RF Rx Instructions: 31G X 5/16 B/D INSULIN PEN NEEDLE (DME) FreeStyle Lite Strips Strip 1 ea Miscellaneous TID Qty: 300 3RF Rx Instructions: DX: E11.9; ON INSULIN (Z79.4) TID testing (DME) lancets [FreeStyle Lancets] 28 gauge misc 1 ea Sub-Q TID Qty: 300 3RF Rx Instructions: DX: E11.9 ON INSULIN (Z79.4) TID testing amlodipine 5 mg tablet 5 mg PO DAILY Qty: 3 0RF glipizide 10 mg tablet 5 mg PO BID Qty: 3 0RF metformin 1,000 mg tablet 1,000 mg PO BID Qty: 6 0RF Rx Instructions: ONE tab BID (note mg change) cyclobenzaprine 5 mg tablet See Rx Instructions .ROUTE .COMPLEX Qty: 60 0RF Dose Instruction: TAKE ONE TABLET BY MOUTH AT BEDTIME NEEDED FOR MUSCLE SPASM Rx Instructions: TAKE ONE TABLET BY MOUTH AT BEDTIME NEEDED FOR MUSCLE SPASM lamotrigine 25 mg tablet 25 mg PO HS Qty: 90 1RF Rx Instructions: to add to 50 mg dose at bedtime escitalopram oxalate 20 mg tablet 20 mg PO DAILY Qty: 90 3RF losartan 100 mg tablet 100 mg PO DAILY Qty: 90 4RF pregabalin 25 mg capsule 25 mg PO BID Qty: 180 1RF magnesium oxide 500 mg tablet 500 mg PO DAILY Qty: 90 4RF furosemide 20 mg tablet 20 mg PO DAILY Qty: 90 4RF lamotrigine 100 mg tablet 100 mg PO DAILY Qty: 90 4RF lamotrigine 50 mg tablet extended release 24hr 50 mg PO DAILY Qty: 90 4RF cyclobenzaprine 10 mg tablet 10 mg PO TID PRN (Reason: muscle spasm) Qty: 30 0RF Discontinued oxycodone 5 mg tablet 5 mg PO TID MDD 15 mg PRN (Reason: pain) Qty: 15 0RF tramadol 50 mg tablet 50 mg PO Q6H PRN MDD 4 tab Qty: 28 0RF Discharge Instructions Additional Instructions: Total Knee Discharge Instructions Activity: The most important activity is to walk and to work on gentle motion (both flexion and extension). You should try to take short walks a few times a day. It is important that when resting you work on keeping the knee straight. Avoid putting a pillow behind the knee as this will encourage flexion. Work on range of motion exercises as provided by Physical Therapy. - Start outpatient physical therapy within 2 weeks. - You should wear the GUNNER hose on both legs for 2 weeks. You may remove these at night. You may also use any compression sock in place of the GUNNER hose. - Utilize [employer] to review exercises, see videos on exercises and obtain basic information pertaining to your surgery and your recovery. Dressing: Remove the Mando wrap by 2 days after your surgery and put on the GUNNER stocking given to you from the hospital. Keep the surgical dressing (underneath the MANDO wrap) in place for at least one week. After the first week it may be removed and replaced with light gauze and tape or nothing. The wound and dressing may get wet after 3 days but avoid soaking the dressing or otherwise it will need to be changed. Many people prefer covering the dressing with cling wrap (saran wrap) to minimize it from getting soaked. If it gets wet, just pat dry. If it starts to peel off then it will need to be changed. Medications: - You should take Tylenol and anti-inflammatory Celebrex as your primary pain control medications. If the Celebrex is too expensive or not covered, please call the office for another alternative (Advil/Ibuprofen or Naproxen/Aleve) - You have been prescribed a stronger pain medication Oxycodone for breakthrough pain, take as needed as prescribed. - You have also been prescribed a stomach acid reduction agent Pantoprozole to help reduce stomach acid and reflux. - You have been prescribed Gabapentin to take at night for restlessness and nerve pain. - You will be taking your apixaban for DVT prevention unless instructed otherwise. - If you have constipation you should take Colace or Miralax (both [id number]). It takes most people 3-4 days to have a bowel movement. Follow-up: 2 weeks If you have any acute concerns or questions, please do not hesitate to contact the office at [phone]. You may contact Dr. Mariscal with any questions after hours through the hospital at [phone] or on his cell phone at [phone]. Stand Alone Forms: Anesthesia Discharge InstSixto, Dottie.Nerve Block Instructions, Mirta Bartlett (DSU) Referrals: Lonnie Mariscal MD [ [facility] STAFF PHYSICIAN] - 06/01/23 11:45 am Equipment/Supplies: Walker Activity:: Activity as Tolerated Shower/Bathe:: 72 hours Diet:: As Tolerated DS: Diagnosis Discharge Diagnosis (1) Left knee DJD: Status: Resolved
--- NOTE | 2023-05-17 07:39 | W.PREOPHP ---
Assessment and Plan Assessment and plan (1) Mitral regurgitation: Status: Chronic (2) Diabetes mellitus: Status: Chronic Qualifiers: Diabetes mellitus type: type 2 Diabetes mellitus care home insulin use: with emt intermediate use Diabetes mellitus complication status: with kidney complications Diabetes mellitus complication detail: with chronic kidney disease Chronic kidney disease stage: stage 2 (mild) Qualified Code(s): E11.22 - Type 2 diabetes mellitus with diabetic chronic kidney disease; N18.2 - Chronic kidney disease, stage 2 (mild); Z79.4 - penitentiary (current) use of insulin (3) Tear of cartilage of left knee: Status: Acute Assessment and plan: Margarette is a 72-year-old female who has known diabetes, atrial fibrillation, primary fibromyalgia, hypertension. She is in a stable medical condition. She has root coverage from her COVID-19 infection as well is a recent fall. There are at this point she is stable and ready to proceed with left knee replacement. Once again I reviewed the left knee replacement with her. I went over in detail the possible complications of knee replacement. These include but are not limited to bleeding, infection, pain, stiffness, weakness, damage to nerves, damage to vessels, damage to muscle and tendon, fracture, leg length inequality, wound healing complications, instability, component loosening, and blood clot. Questions were answered. I again expressed that this is a surgery to improve functional quality of life. After a review of the presented information and risks, Margarette desired to proceed. History of Present Illness History of Present Illness Chief Complaint: Left Knee Pain and Deformity Narrative: Margarette is a 72-year-old female who has left knee pain from severe arthritis with a notable valgus deformity. She was scheduled for previous knee replacement surgery back in February. There is a complete H&P performed for that time in February. Unfortunately, she developed symptomatic COVID. She then had a fall in April which has precluded surgery till today. She still has some minor rib pain after her fall. Full evaluation of imaging from that fall was reviewed and shows no signs of fracture or other concerning features. She still continues to be limited by the left knee. She denies any chest pain or shortness of breath. No numbness or tingling. No worsening glycemic episodes. She has seen her primary care team at least twice since that point with no other changes in her medical management. She reports no recent illness. Review of Systems All systems reviewed & are unremarkable except as noted in HPI and below PFSH All Active Problems (Updated 05/17/23 @ 07:42 by Lonnie Mariscal MD) Hematuria (Acute) Mitral regurgitation (Chronic) 02/10/23 echo, moderate Pedal edema (Acute) Hypomagnesemia (Acute) Diabetes mellitus (Chronic 03/13/15) Essential hypertension (Chronic 03/20/13) Right hip pain (Chronic 03/13/15) [place] [facility] [place] Primary fibromyalgia syndrome (Chronic) fibromyalgia Palpitations (Chronic 11/27/14) 11/26 Holter, multiple PACs Obesity (BMI 30-39.9) (Chronic 11/04/15) Knee pain (Chronic) left, DJD [place]08[place] [facility] [place] needs TKR[place] Kidney stone (Chronic) August [address] [place] [facility] [place] 2 non-obstructing stone in the right kidney Lithotri[place]27[place] [facility] [place]10mm nonobstructing renal calculi *Inf. pole cyst in the LEFT kidney * Echogenic foci through out both kidneys: indeterminant but may be vascular calcification *Bladder is normal Hyperlipidemia (Chronic 09/06/12) Hernia of anterior abdominal wall (Chronic 05/23/17) Family hx-breast malignancy (Chronic) Family hx of colon cancer (Chronic) Anemia, iron deficiency (Chronic 04/22/14) Transaminasemia (Acute 04/13/02) Right upper quadrant pain (Chronic) intermittent Pilonidal cyst without abscess (Acute 04/18/13) Mucous polyp of cervix (Acute) Mild nonproliferative diabetic retinopathy (Acute 04/23/14) GERD without esophagitis (Chronic) [id number]. Off Omeprazole for months, symptoms returned. Omeprazole 20mg PRN re-started. Epigastric abdominal pain (Acute) Left foot pain (Acute) after fall in July 2022 Bipolar 2 disorder (Acute) Degenerative joint disease of right knee (Acute) Laceration of right knee (Chronic) 1994 Tear of cartilage of left knee (Acute) s/p open cartilage repair 1974 Atrial fibrillation (Chronic) Medical History Dysphagia Cortical cataract of right eye Nuclear sclerotic cataract of right eye Cataract Low back pain potentially associated with radiculopathy Paronychia of great toe of left foot Depressive disorder Low back pain with right-sided sciatica Pain of left thigh (06/01/17) Peptic reflux disease Shoulder pain (11/04/15) Chronic pain disorder (02/06/17) Surgical History History of cataract surgery Nuclear age-related cataract, right eye Cortical age-related cataract, right eye Cortical age-related cataract, left eye Nuclear age-related cataract, left eye Ligation of fallopian tube Hysterectomy, Laproscopic DUB; has cervix and ovaries H[place] [facility] [place] PART[place] Family History Mother , AGE 82 Diabetes Essential hypertension Heart disease Hyperlipidemia Cancer Father , AGE 80 Alcohol abuse Essential hypertension Heart disease Sister , AGE 45 Breast cancer Sister , AGE 51 Colon cancer Brother , 30 Neoplasm Son Essential hypertension Maternal Grandmother , 93 Breast cancer Son No problems noted. Daughter No problems noted. Other Family hx of colon cancer Family hx-breast malignancy Social History Smoking/Tobacco Use Status: Never Second Hand Exposure: Yes Smoking risk assessment performed?: Yes Alcohol Intake: current Alcohol Intake frequency: holidays/special occasions only Drug use: Never Substance use type: does not use Counseling given: No Counseling provided: none Caregiver/Support person: No Household members: spouse and children Housing: house Number of Children: 3 number of grandchildren: 7 Communication Needs: None Do you need help understanding health information?: Rarely Pets and animals: Yes Pets and animals: cat(s) and dog(s) Sexually active: No Do you think of yourself as: straight/heterosexual Current gender identity: female What is your relationship status?: How often do you talk on the phone with friends or family?: three or more times per week How often do you get together with friends or relatives?: once per week How often do you attend catholic or rastafari services?: decline to answer Do you belong to any clubs or organized social groups?: no Panel score (0-1 are the most socially isolated patients): 2 What type of physical activity do you participate in: decline to answer Marlin/Methodist: Alevism Seatbelt use: always Helmet use: No Drive intox or ride w/intox delivery driver: No Working smoke detector in home: Yes Carbon monox detector in home: Yes Firearms in home: Yes Firearms unloaded and locked: Yes Do you feel safe at home: Yes Do you feel safe in your relationship?: Yes Meds Allergies and Home Medications Allergies Allergy/AdvReac Type Severity Reaction Status Date / Time lisinopril AdvReac cough Verified 05/17/23 07:26 Home Medications Medication Instructions Recorded Confirmed Type blood-glucose meter (FreeStyle ##1 06/01/17 04/26/23 Rx Lite Meter kit) pen needle, diabetic 31 gauge x ##100 06/15/18 04/26/23 Rx 1/3 blood sugar diagnostic (FreeStyle #300 strips 03/25/22 04/26/23 Rx Lite Strips) lancets 28 gauge (FreeStyle #300 ea 03/25/22 04/26/23 Rx Lancets) rosuvastatin 10 mg tablet (Crestor) 10 mg PO DAILY #90 tabs 05/30/22 05/17/23 Rx amlodipine 5 mg tablet 5 mg PO DAILY #3 tabs 10/26/22 05/17/23 Rx glipizide 10 mg tablet 5 mg (1/2 x 10 mg) PO BID #3 tabs 10/26/22 05/17/23 Rx metformin 1,000 mg tablet 1,000 mg PO BID Diabetes #6 tabs 10/26/22 05/17/23 Rx cyclobenzaprine 5 mg tablet See Rx Instructions .Route 12/06/22 05/17/23 Rx .COMPLEX #60 tabs lamotrigine 25 mg tablet 25 mg PO HS #90 tabs 01/02/23 05/17/23 Rx apixaban 5 mg tablet 5 mg PO BID #180 tabs 01/10/23 05/16/23 Rx insulin glargine 100 unit/mL (3 18 unit (0.18 mL) subcut HS #3 pens 01/10/23 05/17/23 Rx mL) subcutaneous pen (Lantus Solostar U-100 Insulin) escitalopram oxalate 20 mg tablet 20 mg PO DAILY #90 tabs 01/27/23 05/17/23 Rx metoprolol succinate 25 mg 25 mg PO DAILY #90 tabs 02/13/23 05/17/23 Rx tablet,extended release 24 hr cyclobenzaprine 10 mg tablet 10 mg PO TID PRN muscle spasm #30 04/12/23 05/17/23 Rx tabs losartan 100 mg tablet 100 mg PO DAILY #90 tab-caps 04/22/23 05/17/23 Rx pregabalin 25 mg capsule 25 mg PO BID #180 caps 04/28/23 05/17/23 Rx furosemide 20 mg tablet 20 mg PO DAILY #90 tabs 05/01/23 05/17/23 Rx magnesium oxide 500 mg tablet 500 mg PO DAILY #90 tabs 05/01/23 05/17/23 Rx lamotrigine 100 mg tablet 100 mg PO DAILY #90 tab-caps 05/16/23 05/17/23 Rx lamotrigine 50 mg tablet,extended 50 mg PO DAILY #90 tabs 05/16/23 05/17/23 Rx release 24 hr acetaminophen 500 mg tablet 1,000 mg (2 x 500 mg) PO TID #90 05/17/23 Rx tabs celecoxib 200 mg capsule 200 mg PO BID #60 caps 05/17/23 Rx dexamethasone 4 mg tablet 4 mg PO DAILY #2 tabs 05/17/23 Rx gabapentin 300 mg capsule 300 mg PO QHS #14 caps 05/17/23 Rx oxycodone 5 mg tablet 5 mg PO Q4H PRN pain #20 tabs 05/17/23 Rx pantoprazole 40 mg tablet,delayed 40 mg PO DAILY #30 tabs 05/17/23 Rx release Exam Resp Effort & Inspection: normal respiratory effort Auscultation: clear to auscultation bilaterally Cardio Rate: regular rate Rhythm: regular rhythm Results Last Vital Signs Temp 36.4 C L 05/17/23 06:55 Pulse 125 H 05/17/23 06:55 Resp 16 05/17/23 06:55 BP 147/83 H 05/17/23 06:55 Pulse Ox 98 05/17/23 06:55
[2023-05-17] MEDS: ceFAZolin 2 GM/50 ML BAG IVPB (07:52)
--- NOTE | 2023-05-17 08:36 | W.ANESNERVE ---
Nerve Block Single Injection Procedure Date and Time Date Performed: 05/17/23 Procedure Start: 07:39 Location Where Procedure Performed Procedure Location: Day Surgery Unit Reason Performed: Postoperative Analgesia Requesting Provider: Lonnie Mariscal Timeout Performed Timeout Performed: Yes Monitoring Used ECG, Blood Pressure, SpO2 and See EMR for corresponding vital signs Sterility Sterility: Hand Hygiene, Surgical Cap, Surgical Mask, Sterile Gloves and Chlorhexidine Sedation Given During Procedure Sedation Given (Indicate Dose Given): No Sedation given Patient Mental Status Patient Mental Status: Awake Nerve Block 1st Nerve Block: Laterality: Left Block Type: Adductor Canal Ultrasound Image Saved?: Yes Needle / Catheter Used: 100mm SonoPlex II Local Anesthetic Bolus (Indicate Dose Given): Lidocaine used for local infiltration of skin, Injected in 3-5ml increments after negative blood aspiration and Bupivacaine 0.25% Dose:: 15 ml Additives (Indicate Dose Given): None Ultrasound: Sterile probe cover and gel used Nerve Stimulator: Not Used Paresthesia: None Procedure Tolerated: No Complications and Patient tolerated well Procedure Outcome: Successful Performed By: Elham Ansari
[2023-05-17] MEDS: fentaNYL 100 MCG/2 ML VIAL IVP ×3 (10:21→10:47)
[2023-05-17] MEDS: oxyCODONE 5 MG TAB PO (11:20)
--- NOTE | 2023-05-17 11:36 | ROE_ITS ---
Date of service: 05/17/23 Time of Service: 08:00 Operative Note Operative Note DATE OF PROCEDURE: 05/17/23 PRE-OP DIAGNOSIS: Left Knee Osteoarthritis with Flexion Contracture and Valgus Deformity POST-OP DIAGNOSIS: same PROCEDURE: Left Total Knee Replacement with Intraoperative Navigation SURGEON: Lonnie Mariscal AIR ANALYSIS ENGINEERING TECHNICIAN: Nilton Fernandes ANESTHESIA TYPE: Spinal Refer to Anesthesia Record ESTIMATED BLOOD LOSS: 250 PATHOLOGY: none sent TOURNIQUET TIME: 0 COMPLICATIONS: None Patient was transported to: PACU Patient's condition: stable Implants: 1. Depuy Attune Cementless Cruciate Retaining Femoral Component, Size 6 2. Depuy Attune Cementless Fixed Bearing Tibial Component, Size 5 3. Depuy Attune 6x10mm CR/FB Poly 4. Depuy Attune Patellar Component, Size 32 Indications: I have seen Margarette in clinic for symptoms of severe LEFT knee arthritis with deformity, confirmed with radiographic findings. Margarette has exhausted nonoperative methods and was having significant limitations in daily function and desired better function and less pain. I discussed the technical details of a knee replacement. I explained the risks of the procedure to include, but not limited to, bleeding, infection, pain, stiffness, fracture, damage to nerves and vessels, damage to muscles and tendons, loosening, need for repeat procedure, blood clot and cardiopulmonary demise. Despite these risks, Margarette elected to proceed. Findings: There was significant signs of arthritis throughout the knee with notable contracture in flexion and valgus. Procedure Description: Margarette was greeted in the preoperative holding area where the correct side was identified and marked. The consent was reviewed with the patient and signed. The history and physical was updated. All questions were answered. Preoperative mediacations were administered: Acetaminophen 1000mg, Celebrex 400mg, and Gabapentin 300mg. An adductor canal block was then administered by the anesthesia team in the PACU. Margarette was taken back to the operating room. A spinal anesthestic was then administered. The patient was placed into the supine position on the operating room table. A nonsterile tourniquet was placed high onto the leg. Posts were placed for positioning during the procedure. All bony prominences were well padded. Prophylactic antibiotics in the form of Cefazolin were admini stered. 1g of Tranxemic Acid was given intravenously within 30 minutes of incision. The left leg was then prepped with Chloraprep and draped in a standard fashion with impervious stockinette. A second prep with Chloraprep was performed prior to application of Iodine impregnated skin protection. A timeout to confirm correct identity, side and site, procedure, allergies, anesthesia, and medical concerns was performed. With the knee in some flexion, a curvilinear lateral based incision was made overlying the knee utilizing the previous incision. Full thickness skin flaps were raised once the extensor mechanism was encountered. These were raised medially and laterally. Any bleeding was controlled with electrocautery. Once the extensor mechanism was fully exposed, a medial parapatellar arthrotomy was performed in a flexed position. All bleeding from the arthrotomy and the geniculate arteries was coagulated. A medial subperiosteal peel was performed with electrocautery to the midcoronal plane. The fat pad was removed while keeping the patellar tendon protected. The anterior distal femur synovium was removed for later visualization. The ACL and PCL were resected and the anterior horn of the lateral meniscus was transected. The knee was then flexed with the patella everted. Large osteophytes from the tibia were removed. Large osteophytes from the femur were removed. Tissues from around the periphery of the tibia laterally were recessed. There was notable density of these tissues, likely from previous surgery. Capsule and synovium were recessed from the lateral femur. A single starting pin was then placed 1cm anterior to the PCL insertion and the notch in the direction of the femoral head. The OrthoAlign device was applied over the pin. It was oriented to be in line with the epicondylar axis and the trochlear groove. It was then pinned into place. The navigation computer was then turned on and calibrated. The distal femur cut was set at 1 degrees valgus and 3.5 degrees flexion. The distal femur cutting guide then was positioned for a 9mm cut. The distal femur was cut with an oscillating saw while protecting the soft tissues. The tibia was then addressed. The OrthoAlign device was placed over the tibial tubercle and medial tibia and secured into position. Once again, OrthoAlign was calibrated and then set for a 0 degree varus/valgus cut and 5 degrees of posterior slope. With this locked into position, the cut thickness stylus was used to assess cut thickness. The latera side, most involved side, was set for a 3mm cut. This was then held in position and pinned into place with 2 additional pins and a cross pin for stability. The medial and lateral collateral ligaments were protected and the cut was performed. With this comp leted, it was assessed and noted to be of appropriate dimensions. The guide and OrthoAlign was removed. A spacer block was inserted and the knee was brought into extension to ensure enough space was present. . The Orthoalign gap balancing device was then placed in extension. This was used to ensure that the ligaments were properly balanced with up to 2 to 3 mm laxity laterally compared medially. The extension gap was measured as 18mm. The knee was then brought into 90 degrees of flexion and the ligament electronics parts sales representative was once again placed. Under the same amount of force the flexion gap was measured. The Attune specific jig was placed and the flexion gap was made to match the extension gap. The femur was then sized as a size 6. The 4-in-1 cutting guide was the placed. An leigh wing was used to confirm appropriate position of the anterior cut to avoid notching. This cutting guide was ensured to be flush on the cut surface and then pinned into place with headed pins. While protecting the soft tissues, quad tendon, and collateral ligaments, the anterior and posterior cuts were performed with a saw. The central two pins were removed and the posterior and anterior chamfers were cut next. The notch-cutting guide was placed. This was pinned to lateralize the femoral component as much as possible while keeping it flush on the cut surface. This was then pinned into position. A saw was used to make the notch cut. A rasp smoothed the cut surfaces. The medial and lateral menisci were removed. A trial femoral component was then inserted, impacted down to the cut surfaces, and the lug holes were drilled. A provisional trial tibial component was placed and the knee was brought through range of motion. The polyethylene was trialed until there was good flexion and extension with excellent stability to the medial and lateral collaterals. The patella was tracking without thumbs. A size 10mm polyethylene component provided the best range of motion and stability with less than 2mm gapping with medial and lateral stress and full extension without significant hyperextension. The tibial cut surface was fully exposed. The tibia was then sized as a 5. The tibia had been previously marked during trialing to correspond to the center of the tibial component to help with rotation. The trial was aligned to this nilton, approximately rotated to the medial 1/3rd of the tibial tubercle. The trial was pinned into place. The tibia was prepared with a reamer and a keel punch and lug holes. The knee was then brought into extension and the patella was measured as 22mm. Using the patellar clamp and cut guide, this was resected to a flat surface with at least 13mm of thickness remaining. The size 32 patella fit the best. This was oriented and then clamped into position. The lugs were drilled. The trial components were removed. The final components were opened on the back table. The periosteal and capsular tissues, especially posteriorly, around the knee were then systematically injected with a periarticular cocktail consisting of 246mg of Ropivacaine, 0.5mg of Epinephrine, 0.08mg of Clonidine, and 30mg of Ketorolac, diluted to 100cc. On the back table, with the implants opened, the cement was mixed. One batch of high viscosity cement was prepared with vacuum assistance. After the cement was ready a small amount was placed on the cut surface of the patella and the patellar button was clamped into position and held. While the cement was hardening, the cementless knee components were placed. Starting with the tibial component, the tibia was subluxed anteriorly and the lug holes of the component were lined up. The tibia was then impacted with an impactor and mallet until the tibial component was in contact with the tibia. Then, the femoral component was inserted. The lug holes were aligned and the component was impacted into position. The final polyethylene component was inserted. The knee was irrigated with Irrisept Chlorhexadine solution. This was allowed to sit in the knee for 3 minutes and then it was thoroughly irrigated out with saline. After the cement had finally cured, approximately 15min, the clamp was removed from the patella and the knee was taken through range of motion. The patella was tracking with a no-thumbs technique. The capsule was then reapproximated with a No. 1 Vicryl at multiple locations. The capsule was finally closed with a No. 2 Stratafix, barbed suture. Deep tissues were then reapproximated with 0 Vicryl and 2-0 Vicryl. The skin was closed with a running 3-0 Monocryl in a subcuticular fashion. This was reinforced with skin glue. A Mepilex silver dressing was applied along with a [id number] MERRITT wrap. A CryoCuff was applied. Margarette was transferred to the hospital bed without difficulty an suffering no apparent complication. Margarette has a good prognosis. Physical therapy will start today and without restrictions, weight-bearing as tolerated. Aspirin 81mg BID will be used for DVT prophylaxis.
--- NOTE | 2023-05-17 12:50 | PT.INIE ---
PT Notes Visit Reasons: L TKR Physical Therapy Day Surgery Initial Evaluation Date: 05/17/2023 Referring Doctor: Manuel Fernandes MD PT Orders: PT CONSULT: S/P Ortho Surgery Precautions: WBAT on the L LE with AD. Patient Profile/Admitting Diagnosis: Margarette is a 72-year-old female with medical history significant for diabetes mellitus and mitral valve regurgitation with diagnosis of degenerative joint disease of the left knee and status post left total knee arthroplasty on postoperative day 0. PMHX: All Active Problems (Updated 05/17/23 @ 07:42 by Lonnie Mariscal MD) Hematuria (Acute) Mitral regurgitation (Chronic) 02/10/23 echo, moderate Pedal edema (Acute) Hypomagnesemia (Acute) Diabetes mellitus (Chronic 03/13/15) Essential hypertension (Chronic 03/20/13) Right hip pain (Chronic 03/13/15) DJD, s/p THR [facility] 04/28 Primary fibromyalgia syndrome (Chronic) fibromyalgia Palpitations (Chronic 11/27/14) 11/26 Holter, multiple PACs Obesity (BMI 30-39.9) (Chronic 11/04/15) Knee pain (Chronic) left, DJD (08/27 [facility] ortho eval, needs TKR) Kidney stone (Chronic) August [address] at [facility]: 2 non-obstructing stone in the right kidney Lithotripsy 11/27/20 US at [facility] *10mm nonobstructing renal calculi *Inf. pole cyst in the LEFT kidney * Echogenic foci through out both kidneys: indeterminant but may be vascular calcification *Bladder is normal Hyperlipidemia (Chronic 09/06/12) Hernia of anterior abdominal wall (Chronic 05/23/17) Family hx-breast malignancy (Chronic) Family hx of colon cancer (Chronic) Anemia, iron deficiency (Chronic 04/22/14) Transaminasemia (Acute 04/13/02) Right upper quadrant pain (Chronic) intermittent Pilonidal cyst without abscess (Acute 04/18/13) Mucous polyp of cervix (Acute) Mild nonproliferative diabetic retinopathy (Acute 04/23/14) GERD without esophagitis (Chronic) [id number]. Off Omeprazole for months, symptoms returned. Omeprazole 20mg PRN re-started. Epigastric abdominal pain (Acute) Left foot pain (Acute) after fall in July 2022 Bipolar 2 disorder (Acute) Degenerative joint disease of right knee (Acute) Laceration of right knee (Chronic) 1994 Tear of cartilage of left knee (Acute) s/p open cartilage repair 1974 Atrial fibrillation (Chronic) Medical History Dysphagia Cortical cataract of right eye Nuclear sclerotic cataract of right eye Cataract Low back pain potentially associated with radiculopathy Paronychia of great toe of left foot Depressive disorder Low back pain with right-sided sciatica Pain of left thigh (06/01/17) Peptic reflux disease Shoulder pain (11/04/15) Chronic pain disorder (02/06/17) Surgical History History of cataract surgery Nuclear age-related cataract, right eye Cortical age-related cataract, right eye Cortical age-related cataract, left eye Nuclear age-related cataract, left eye Ligation of fallopian tube Hysterectomy, Laproscopic DUB; has cervix and ovaries HIP REPLACEMENT [facility]; PARTIAL Social History/Home Situation: Lives with in a private home with 3 steps to enter with 1 rail. Daughter yenifer Shelby lives close by and is a good support. 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 used a walking stick for outdoors for increased stability. Independent with all aspects of ADLs prior to surgery although had had increasing difficulty due to worsening arthritis in the left knee. Equipment Owned/DME: Walking stick Subjective: Complains of L foot being numb but able to bring it up toward nose against mild resistance. Reported pain level at 3-4/10 in the L knee which decreased with weight bearing. Complained of fatigue custodial through the walk. Added that she missed her Lantus yesterday and that she had half a muffin and a custard for lunch today. Objective: General Observation: Seated on bedside recliner. MERRITT wraps to L LE, cryocuff to L knee, TEDS to R leg/foot. Daughter Helen present in room throughout session. Mental Status: A and O x 4 Pain: As above ROM: Right Lower Extremity: Hip flexion WFL. Hip abduction WFL. Knee flexion WFL. Ankle dorsiflexion WFL. Ankle plantarflexion WFL. Left Lower Extremity: Hip flexion WFL. Hip abduction WFL. Knee flexion 0 to 90 degrees actively. Ankle dorsiflexion WFL. Ankle plantarflexion WFL. Strength: Right Lower Extremity: Hip flexors 5/5. Hip abductors 5/5. Knee flexors 5/5. Knee extensors 5/5. Ankle dorsiflexors 5/5. Ankle plantarflexors 5/5. Left Lower Extremity:Hip flexors 4/5. Hip abductors 4/5. Knee flexors 3-/5. Knee extensors 4-/5. Ankle dorsiflexors 4-/5. Ankle plantarflexors 5/5. Sensation: Intact as to pain and light pressure in B LE except for L foot. Nurse and anesthesiologist aware. Bed Mobility/Transfers: Minimal cueing provided for use of B hands as needed for support, movement sequence, Ad management, and and posture to reduce fall risk and minimize pain report Sit to stand contact guard assist Stand to sit contact guard assist Bed to chair contact guard assist Gait: Facilitated safe and correct performance of level surface ambulation covering a distance of 100 feet +100 feet using front wheeled walker with contact-guard assist of PT and wheelchair follow of nurse Vincent for safety. Patient reported increased fatigue during the first half of the walk. Nurse Vincent was asked if she wanted patient's blood sugar measured which read 472 mg/dL one time and then 461 mg/dL 10 minutes after. Orthopedic surgeon and anesthesiologist updated. Moderate verbal cueing provided for increased bending on the left knee to minimize mild circumduction at the hip or right before heel strike on the left. Stairs: Guided patient with safe and correct negotiation 3 x 4 inch steps and 2 x 6 inch steps while holding onto bilateral rails with moderate verbal cueing provided for increased knee flexion on the left during each ascent, for improved posture, and for directional changes. Balance: Static Sitting: Normal Dynamic Sitting: Normal Static Standing: Fair Dynamic Standing: Fair Special Tests: Mobility Limitations Standardized Measure [facility] AM-PAC 6 clicks Basic Mobility Inpatient Short Form: Raw Score: 21 CMS Score: 29% deficit Informed Consent/Education: Patient instructed in purpose of PT consult. Packet containing TKA exercise protocol has been given to patient. Education and training on initial set of exercises that can be done at home have been completed with patient. Trained patient with correct performance of exercises below to maximize motor control, joint flexibility, soft tissue extensibility of the L knee musculature: Access Code: [email or web address] URL: [email or web address] Date: 05/16/2023 Prepared by: Jessica Alonzo Exercises - Supine Quad Set - 1 x daily - 7 x weekly - 1 sets - 10 reps - 5 hold - Supine Heel Slide - 1 x daily - 7 x weekly - 1 sets - 10 reps - 5 hold - Supine Ankle Pumps - 1 x daily - 7 x weekly - 1 sets - 10 reps - 5 hold - Small Range Straight Leg Raise - 1 x daily - 7 x weekly - 1 sets - 10 reps - 5 hold - Seated March - 1 x daily - 7 x weekly - 1 sets - 10 reps - 5 hold ASSESSMENT: Patient requires use of a front wheeled walker for all mobility ADL performance to maximize independence and reduce fall risk. Patient needed longer than usual rest after covering the first half of the walk due to usual level of fatigue. Blood sugars were abnormally high and nurse Melisa updated and he states urologist and surgeon about said issue. Patient presents with clinical signs and symptoms consistent with current/admitting diagnoses that have resulted to mobility limitations, gait instability, generalized weakness, and impairment of motor control as demonstrated by the following impairment level findings: 1. Decreased strength to left knee major muscle groups 2. Impaired standing balance 3. Limitation of joint range of motion in left knee Impairments are contributing to the following functional limitations: 1. Inability to safely ambulate without assistive device 2. Increase completion time for mobility ADL performance 3. Increased fall risk Patient is assessed as a 67996 moderate complexity based on the following: History: 72-year-old female with impairment level findings, functional limitations, and past medical history as indicated above Examination: Demonstrable impairment in strength, balance, and mobility level with underlying impairments and functional limitations as documented above Presentation: evolving Decision Makin moderate complexity Goals: N/A. PT evaluation and 1-2 treatment sessions only for functional mobility training using recommended AD and for HEP instruction. Plan of Care/Treatment Plan: N/A. PT evaluation and 1-2 treatment session only for functional mobility training using recommended AD and for HEP instruction. DISCHARGE RECOMMENDATIONS: Home when medically cleared by orthopedic surgeon. Recommend outpatient PT services in order to optimize functional mobility outcomes and facilitate return to independent community ambulation without an assistive device. TREATMENT CODE/TIME: 90190 x 20 minutes for 1 unit, 68009 x 54 minutes for 4 units beginning at 12:50 PM. Thank you for the opportunity to participate in the care of this patient. Jessica Alonzo PT, DPT, CLT [facility] [place], [place] Please sign an return this page within 30 days if you agree with the above POC. Thank you! Physician Signature Date [facility]
--- NOTE | 2023-05-17 13:25 | W.ANESPOSTOP ---
Postoperative Evaluation Date, Time and Location Date Performed: 05/17/23 Time Performed: 13:11 Patient Location: Day Surgery Unit Vital Signs Most Recent Imported Vital Signs: Most Recent Vital Signs Temp Pulse Resp BP Pulse Ox 36 C L 101 H 16 110/65 95 05/17/23 12:27 05/17/23 12:27 05/17/23 12:27 05/17/23 12:27 05/17/23 12:27 Pain Score Most Recent Pain Score: Most Recent Pain Score Pain Level 4 05/17/23 12:27 Assessment Mental Status: Awake (Alert & Oriented to Patient Baseline) Airway and Respiratory Function: Patent airway with normal (patient baseline) respiratory exam Cardiovascular Function: Hemodynamically Stable Hydration Status: Adequately Hydrated Nausea & Vomiting: No Nausea or Vomiting Pain: Pain is tolerable per patient Peripheral Nerve Block: Regional nerve block not resolved at time of post operative discharge
[2023-05-17] MEDS: Insulin REGULAR-Human 100 UNITS/ML UNIT SC ×2 (14:03→14:57)
[2023-05-17 16:45] LABS: Anion Gap 11.8 mmol/L (3-11); BUN 29 mg/dL (7-18); CO2 22.2 mmol/L (21.0-32.0); CREATININE 1.5 mg/dL (0.55-1.02); Calcium 9.4 mg/dL (8.5-10.1); Chloride 97 mmol/L (98-107); Estimated GFR 37.26 (mL/min/1.73m2); Glucose 421 mg/dL (74-106); Potassium 5.1 mmol/L (3.5-5.1); Sodium 131 mmol/L (136-145)
--- NOTE | 2023-05-17 17:41 | W.MEDCONSULT ---
Date of service: 05/17/23 Time of Service: 17:56 Assessment and Plan Assessment and plan (1) Hyperglycemia due to type 2 diabetes mellitus: Status: Acute Assessment and plan: - Patient is normally very well-controlled type II diabetic on Lantus, metformin and sliding scale insulin -However, as per preoperative management patient did not take her Lantus the night prior to surgery -Additionally, she was given corticosteroids as part of surgical procedure -Postoperative blood glucose levels on fingerstick was greater than 500 -Was given 10 units of short acting insulin and PACU but fingerstick remained greater than 500 -BMP following blood sugar showed glucose improving to about 400 -Plan is to give the patient her nighttime 18 units of Lantus early at around 1800, 2 every 4 hours fingersticks, and low-dose sliding scale insulin History of Present Illness History of Present Illness Chief Complaint: Consult for postoperative hyperglycemia Narrative: 72-year-old female with past medical history of insulin-dependent type 2 diabetes requires inpatient medicine consultation for postoperative hyperglycemia after left knee replacement. As per her preoperative instructions, patient did not take her nighttime Lantus the night prior to surgery. She had been given systemic steroids as part of operative protocol, however postoperatively she developed severe hypoglycemia with fingerstick blood sugars reading greater than 500. However, patient was completely asymptomatic and was ANO x 4. She was given a total of 10 units of short acting insulin and her blood sugar did not seem to improve. At which time orthopedic surgeon admitted patient to [facility] and requested medicine consultation. Upon arriving to the floor her BMP results showed that her blood sugar was improving and was down to the low 400s. Patient stated that she was feeling well and appreciated having her blood sugars manage before going home. Review of Systems All systems reviewed & are unremarkable except as noted in HPI and below PFSH All Active Problems (Updated 05/17/23 @ 17:59 by Cipriano Montero MD) Hyperglycemia due to type 2 diabetes mellitus (Acute) History of total left knee replacement (Acute 05/17/23) Hematuria (Acute) Mitral regurgitation (Chronic) 02/10/23 echo, moderate Pedal edema (Acute) Hypomagnesemia (Acute) Diabetes mellitus (Chronic 03/13/15) Essential hypertension (Chronic 03/20/13) Right hip pain (Chronic 03/13/15) DJD, s/p THR [facility] 04/28 Primary fibromyalgia syndrome (Chronic) fibromyalgia Palpitations (Chronic 11/27/14) 11/26 Holter, multiple PACs Obesity (BMI 30-39.9) (Chronic 11/04/15) Kidney stone (Chronic) August [address] at [facility]: 2 non-obstructing stone in the right kidney Lithotripsy 11/27/20 US at [facility] *10mm nonobstructing renal calculi *Inf. pole cyst in the LEFT kidney * Echogenic foci through out both kidneys: indeterminant but may be vascular calcification *Bladder is normal Hyperlipidemia (Chronic 09/06/12) Hernia of anterior abdominal wall (Chronic 05/23/17) Family hx-breast malignancy (Chronic) Family hx of colon cancer (Chronic) Anemia, iron deficiency (Chronic 04/22/14) Transaminasemia (Acute 04/13/02) Right upper quadrant pain (Chronic) intermittent Pilonidal cyst without abscess (Acute 04/18/13) Mucous polyp of cervix (Acute) Mild nonproliferative diabetic retinopathy (Acute 04/23/14) GERD without esophagitis (Chronic) [id number]. Off Omeprazole for months, symptoms returned. Omeprazole 20mg PRN re-started. Epigastric abdominal pain (Acute) Left foot pain (Acute) after fall in July 2022 Bipolar 2 disorder (Acute) Degenerative joint disease of right knee (Acute) Laceration of right knee (Chronic) 1994 Tear of cartilage of left knee (Acute) s/p open cartilage repair 1974 Atrial fibrillation (Chronic) Medical History Dysphagia Cortical cataract of right eye Nuclear sclerotic cataract of right eye Cataract Low back pain potentially associated with radiculopathy Paronychia of great toe of left foot Depressive disorder Low back pain with right-sided sciatica Pain of left thigh (06/01/17) Peptic reflux disease Shoulder pain (11/04/15) Chronic pain disorder (02/06/17) Surgical History History of cataract surgery Nuclear age-related cataract, right eye Cortical age-related cataract, right eye Cortical age-related cataract, left eye Nuclear age-related cataract, left eye Ligation of fallopian tube Hysterectomy, Laproscopic DUB; has cervix and ovaries HIP REPLACEMENT [facility]; PARTIAL Family History Mother , AGE 82 Diabetes Essential hypertension Heart disease Hyperlipidemia Cancer Father , AGE 80 Alcohol abuse Essential hypertension Heart disease Sister , AGE 45 Breast cancer Sister , AGE 51 Colon cancer Brother , 30 Neoplasm Son Essential hypertension Maternal Grandmother , 93 Breast cancer Son No problems noted. Daughter No problems noted. Other Family hx of colon cancer Family hx-breast malignancy Social History Smoking/Tobacco Use Status: Never Second Hand Exposure: Yes Smoking risk assessment performed?: Yes Alcohol Intake: current Alcohol Intake frequency: holidays/special occasions only Drug use: Never Substance use type: does not use Counseling given: No Counseling provided: none Caregiver/Support person: No Household members: spouse and children Housing: house Number of Children: 3 number of grandchildren: 7 Communication Needs: None Do you need help understanding health information?: Rarely Pets and animals: Yes Pets and animals: cat(s) and dog(s) Sexually active: No Do you think of yourself as: straight/heterosexual Current gender identity: female What is your relationship status?: How often do you talk on the phone with friends or family?: three or more times per week How often do you get together with friends or relatives?: once per week How often do you attend lutheran or worship services?: decline to answer Do you belong to any clubs or organized social groups?: no Panel score (0-1 are the most socially isolated patients): 2 What type of physical activity do you participate in: decline to answer Marlin/Moravian: Restorationism Seatbelt use: always Helmet use: No Drive intox or ride w/intox catshovel driver: No Working smoke detector in home: Yes Carbon monox detector in home: Yes Firearms in home: Yes Firearms unloaded and locked: Yes Do you feel safe at home: Yes Do you feel safe in your relationship?: Yes Exam Narrative Exam Narrative: Well-appearing older female laying in bed in no acute distress, ANO x 4, heart regular rhythm, lungs clear to auscultation bilaterally, abdomen soft, nontender, nondistended, bandage over left knee without surrounding bleeding, draining or erythema Results Last Vital Signs Temp 97.2 F L 05/17/23 16:40 Pulse 88 05/17/23 16:40 Resp 16 05/17/23 16:40 BP 110/70 05/17/23 16:40 Pulse Ox 97 05/17/23 16:40 Labs 05/17/23 16:25 Labs: Laboratory Results - last 24 hr 05/17/23 16:25 Sodium 131 L Potassium 5.1 Chloride 97 L Carbon Dioxide 22.2 Anion Gap 11.8 H BUN 29 H Creatinine 1.5 H Est GFR (CKD-EPI 2020) 37.26 Glucose 421 H Calcium 9.4
[2023-05-17] MEDS: Insulin Aspart 300 UNITS/3 ML PEN SC (19:03)
[2023-05-17] MEDS: Apixaban 5 MG TAB PO (20:07)
[2023-05-17] MEDS: lamoTRIgine 25 MG TAB 75 MG PO (21:21)
[2023-05-17] MEDS: Insulin Glargine 300 UNITS/3 ML PEN 18 UNITS SC (21:22)
[2023-05-18 04:08] VITALS: BP 125/76; PULSE 95; RESP 18; TEMP 36.5; O2SAT 97
[2023-05-18] MEDS: oxyCODONE 5 MG TAB PO ×3 (04:08→10:01)
[2023-05-18] MEDS: Acetaminophen 500 MG TAB 1000 MG PO (04:08)
[2023-05-18] MEDS: metFORMIN 500 MG TAB 1000 MG PO (08:09)
[2023-05-18] MEDS: Losartan 50 MG TAB 100 MG PO (08:10)
[2023-05-18] MEDS: Furosemide 20 MG TAB PO (08:10)
[2023-05-18] MEDS: Rosuvastatin 10 MG TAB PO (08:10)
[2023-05-18 08:11] VITALS: BP 143/87; PULSE 93; RESP 17; TEMP 36.6; O2SAT 96
[2023-05-18] MEDS: lamoTRIgine 100 MG TAB PO (08:11)
[2023-05-18] MEDS: amLODIPine 5 MG TAB PO (08:11)
[2023-05-18] MEDS: Metoprolol CR 25 MG TABCR PO (08:11)
[2023-05-18] MEDS: Escitalopram 20 MG TAB PO (08:11)
[2023-05-18] MEDS: glipiZIDE 5 MG TAB PO (08:11)
[2023-05-18] MEDS: Magnesium Oxide 400 MG TAB PO (08:11)
[2023-05-18] MEDS: Apixaban 5 MG TAB PO (08:11)
[2023-05-18] MEDS: Insulin Aspart 300 UNITS/3 ML PEN SC (08:14)
--- NOTE | 2023-05-18 08:26 | DSE_ITS ---
Date of service: 05/18/23 Time of Service: 07:20 DS: Diagnosis Discharge Diagnosis (1) Hyperglycemia due to type 2 diabetes mellitus: Status: Acute Discharge Plan Disposition Patient Disposition: Home Condition: Good Discharge Details Reason For Visit: Dajuan TKR Admit Date/Time: 05/17/23 16:09 Admit Provider: Lonnie Mariscal Attending Provider: Lonnie Mariscal Primary Care Provider: Rio Garcia Hospital Course Hospital Course: Patient was admitted to the medical/surgical floor following the procedure due to persistent hyperglycemia. The surgery was tolerated well without any notable medical, surgical, or anesthetic complications. Mobilization began postoperatively. She was voiding spontaneously. Vitals were stable. Physical therapy worked with the patient and was cleared for discharge home. However, despite [place] insulin she had no response with her glucose level, remaining near 500. Therefore, she was admitted for observation and management of her hyperglycemia. There were no other acute medical issues. Pain was controlled on oral regimen. Her glucose levels decreased appropriately although stayed slightly elevated. She was deemed safe to discharge to home on her home insulin and medication regimen. Home Meds and New Rx's Prescriptions: New acetaminophen 500 mg tablet 1,000 mg PO TID Qty: 90 3RF celecoxib 200 mg capsule 200 mg PO BID Qty: 60 0RF pantoprazole 40 mg tablet,delayed release (DR/EC) 40 mg PO DAILY Qty: 30 0RF gabapentin 300 mg capsule 300 mg PO QHS Qty: 14 0RF oxycodone 5 mg tablet 5 mg PO Q4H MDD 6 tabs PRN (Reason: pain) Qty: 20 0RF Continued rosuvastatin [Crestor] 10 mg tablet 10 mg PO DAILY Qty: 90 3RF insulin glargine [Lantus Solostar U-100 Insulin] 100 unit/mL (3 mL) insulin pen 18 unit subcut HS Qty: 3 12RF apixaban 5 mg tablet 5 mg PO BID Qty: 180 4RF metoprolol succinate 25 mg tablet extended release 24 hr 25 mg PO DAILY Qty: 90 3RF (DME) blood-glucose meter [FreeStyle Lite Meter] 1 EACH kit 1 ea Miscellaneous DIRECTED Qty: 1 0RF Rx Instructions: DX: 250.01 (DME) pen needle, diabetic 31 gauge x 1/3 needle 1 ndl Sub-Q DAILY Qty: 100 4RF Rx Instructions: 31G X 5/16 B/D INSULIN PEN NEEDLE (DME) FreeStyle Lite Strips Strip 1 ea Miscellaneous TID Qty: 300 3RF Rx Instructions: DX: E11.9; ON INSULIN (Z79.4) TID testing (DME) lancets [FreeStyle Lancets] 28 gauge misc 1 ea Sub-Q TID Qty: 300 3RF Rx Instructions: DX: E11.9 ON INSULIN (Z79.4) TID testing amlodipine 5 mg tablet 5 mg PO DAILY Qty: 3 0RF glipizide 10 mg tablet 5 mg PO BID Qty: 3 0RF metformin 1,000 mg tablet 1,000 mg PO BID Qty: 6 0RF Rx Instructions: ONE tab BID (note mg change) cyclobenzaprine 5 mg tablet See Rx Instructions .ROUTE .COMPLEX Qty: 60 0RF Dose Instruction: TAKE ONE TABLET BY MOUTH AT BEDTIME NEEDED FOR MUSCLE SPASM Rx Instructions: TAKE ONE TABLET BY MOUTH AT BEDTIME NEEDED FOR MUSCLE SPASM lamotrigine 25 mg tablet 25 mg PO HS Qty: 90 1RF Rx Instructions: to add to 50 mg dose at bedtime escitalopram oxalate 20 mg tablet 20 mg PO DAILY Qty: 90 3RF losartan 100 mg tablet 100 mg PO DAILY Qty: 90 4RF magnesium oxide 500 mg tablet 500 mg PO DAILY Qty: 90 4RF furosemide 20 mg tablet 20 mg PO DAILY Qty: 90 4RF lamotrigine 100 mg tablet 100 mg PO DAILY Qty: 90 4RF lamotrigine 50 mg tablet extended release 24hr 50 mg PO DAILY Qty: 90 4RF cyclobenzaprine 10 mg tablet 10 mg PO TID PRN (Reason: muscle spasm) Qty: 30 0RF Discontinued oxycodone 5 mg tablet 5 mg PO TID MDD 15 mg PRN (Reason: pain) Qty: 15 0RF pregabalin 25 mg capsule 25 mg PO BID Qty: 180 1RF Patient Comments: No longer taking per pt report. tramadol 50 mg tablet 50 mg PO Q6H PRN MDD 4 tab Qty: 28 0RF No Action duloxetine 60 mg capsule,delayed release(DR/EC) 60 mg PO DAILY Discharge Instructions Additional Instructions: Total Knee Discharge Instructions Activity: The most important activity is to walk and to work on gentle motion (both flexion and extension). You should try to take short walks a few times a day. It is important that when resting you work on keeping the knee straight. Avoid putting a pillow behind the knee as this will encourage flexion. Work on range of motion exercises as provided by Physical Therapy. - Start outpatient physical therapy within 2 weeks. - You should wear the GUNNER hose on both legs for 2 weeks. You may remove these at night. You may also use any compression sock in place of the GUNNER hose. - Utilize [employer] to review exercises, see videos on exercises and obtain basic information pertaining to your surgery and your recovery. Dressing: Keep the Mepilex surgical dressing in place for at least one week. After the first week it may be removed and replaced with light gauze and tape or nothing or left in place for 2 weeks until follow-up. The wound and dressing may get wet after 3 days but avoid soaking the dressing or otherwise it will need to be changed. Many people prefer covering the dressing with cling wrap (saran wrap) to minimize it from getting soaked. If it gets wet, just pat dry. If it starts to peel off then it will need to be changed. Medications: - You should take Tylenol and anti-inflammatory Celebrex as your primary pain control medications. If the Celebrex is too expensive or not covered, please call the office for another alternative (Advil/Ibuprofen or Naproxen/Aleve) - You have been prescribed a stronger pain medication Oxycodone for breakthrough pain, take as needed as prescribed. - You have also been prescribed a stomach acid reduction agent Pantoprozole to help reduce stomach acid and reflux. - You have been prescribed Gabapentin to take at night for restlessness and nerve pain. - You will be taking your Apixaban for DVT prevention unless instructed otherwise. - If you have constipation you should take Colace or Miralax (both pial-mve-wothyov). It takes most people 3-4 days to have a bowel movement. Follow-up: 2 weeks If you have any acute concerns or questions, please do not hesitate to contact the office at [phone]. You may contact Dr. Mariscal with any questions after hours through the hospital at [phone] or on his cell phone at [phone]. Stand Alone Forms: Anesthesia Discharge Inst., Anes.Nerve Block Instructions, Mirta Bartlett ([facility]) Referrals: Lonnie Mariscal MD [ [facility] ST[facility]FF PHYSICIAN] - 06/01/23 11:45 am Activity:: Activity as Tolerated Equipment/Supplies:: Walker Diet:: As Tolerated Discharge Orders Discharge Orders: Discharge Order (Routine); Ordered 05/18/23 Ordered By: Lonnie Mariscal DS: Summary Time Spent with Patient providing and/or coordinating discharge services: Less than 30 minutes Status at Discharge Functional status at discharge: uses cane/walker Overall status at discharge: patient is progressing back to baseline Mental Status: mental status grossly normal Speech and Movement: speech and movement normal Mood: congruent mood Affect: normal affect Quality:SDOH Health Related Social Needs: No Data to Display Exam Narrative Exam Narrative: Sitting up in the chair. No acute distress. Alert orient x 3. Left knee dressing is dry, clean, and intact. There is some swelling and some mild ecchymosis. She is able to straight leg raise. She has active ankle dorsiflexion plantarflexion as well as great toe extension and flexion. She has intact sensation to the deep and superficial peroneal nerve and tibial nerve. Psych Mental Status: mental status grossly normal Speech and Movement: speech and movement normal Mood: congruent mood Affect: normal affect DS: Data Vitals/I&O Vitals and I&O: Vital Signs Temperature 36.6 C 05/18/23 08:11 Temperature Source Tympanic 05/18/23 08:11 Pulse 93 H 05/18/23 08:11 Pulse Rhythm Irregular 05/18/23 01:24 Respiratory Rate 17 05/18/23 08:11 Respiratory Effort Normal, Non-Labored 05/18/23 01:24 Respiratory Depth Normal 05/18/23 01:24 Respiratory Pattern Normal 05/18/23 01:24 Blood Pressure 143/87 H 05/18/23 08:11 Blood Pressure Mean 110 05/17/23 07:39 Blood Pressure Position Sitting 05/17/23 07:39 Pulse Oximetry 96 05/18/23 08:11 Respiratory End-tidal CO2 40 05/17/23 11:37 Oxygen Delivery Method Room Air 05/18/23 08:11 Oxygen Flow Rate 0 05/18/23 08:11 Pain Level 0 05/18/23 08:11 Comment Adductor canal block performed on left knee by Pako FINK with Yuan Hodge RN assisting. Pt talkative during procedure quiet No issues with the block. Pt denies metallic taste, ringing in ears or feeling unusual in any way post block. Pt reports she is comfortable. [employer] nurse Radha RN and Penny Fairchild RN in room to transport pt to the OR. 05/17/23 07:39 Intake & Output 05/17/23 05/17/23 05/18/23 11:59 23:59 11:59 Intake Total 610 / 2010 1400 / 2010 500 / 500 Output Total 250 / 400 150 / 400 500 / 500 Balance 360 / 1610 1250 / 1610 0 / 0 Weight 91.5 kg 95.254 kg Intake: IV 610 / 1610 1000 / 1610 500 / 500 Oral 0 / 400 400 / 400 Output: Urine 150 / 150 500 / 500 Emesis 0 / 0 Estimated Blood Loss 250 / 250 Other: Urine Color Yellow Light Perlita Urine Appearance Clear Clear Urine Odor Normal Comment post void post void Emesis Description None None Voiding Methods Toilet Toilet Toilet Data Completed and Pending Labs on day of discharge: Labs from last 24 hours 05/17/23 16:25 Sodium 131 L Potassium 5.1 Chloride 97 L Carbon Dioxide 22.2 Anion Gap 11.8 H BUN 29 H Creatinine 1.5 H Est GFR (CKD-EPI 2020) 37.26 Glucose 421 H Calcium 9.4 PFSH All Active Problems Hyperglycemia due to type 2 diabetes mellitus (Acute) History of total left knee replacement (Acute 05/17/23) Hematuria (Acute) Mitral regurgitation (Chronic) 02/10/23 echo, moderate Pedal edema (Acute) Hypomagnesemia (Acute) Diabetes mellitus (Chronic 03/13/15) Essential hypertension (Chronic 03/20/13) Right hip pain (Chronic 03/13/15) DJD, s/p THR [facility] [place] [place] 04/28 Primary fibromyalgia syndrome (Chronic) fibromyalgia Palpitations (Chronic 11/27/14) 11/26 Holter, multiple PACs Obesity (BMI 30-39.9) (Chronic 11/04/15) Kidney stone (Chronic) August [address] at [facility] [place] [place]: 2 non-obstructing stone in the right kidney Lithotripsy 11/27/20 US at [facility] [place] [place] *10mm nonobstructing renal calculi *Inf. pole cyst in the LEFT kidney * Echogenic foci through out both kidneys: indeterminant but may be vascular calcification *Bladder is normal Hyperlipidemia (Chronic 09/06/12) Hernia of anterior abdominal wall (Chronic 05/23/17) Family hx-breast malignancy (Chronic) Family hx of colon cancer (Chronic) Anemia, iron deficiency (Chronic 04/22/14) Transaminasemia (Acute 04/13/02) Right upper quadrant pain (Chronic) intermittent Pilonidal cyst without abscess (Acute 04/18/13) Mucous polyp of cervix (Acute) Mild nonproliferative diabetic retinopathy (Acute 04/23/14) GERD without esophagitis (Chronic) [id number]. Off Omeprazole for months, symptoms returned. Omeprazole 20mg PRN re-started. Epigastric abdominal pain (Acute) Left foot pain (Acute) after fall in July 2022 Bipolar 2 disorder (Acute) Degenerative joint disease of right knee (Acute) Laceration of right knee (Chronic) 1994 Tear of cartilage of left knee (Acute) s/p open cartilage repair 1974 Atrial fibrillation (Chronic) Medical History Dysphagia Cortical cataract of right eye Nuclear sclerotic cataract of right eye Cataract Low back pain potentially associated with radiculopathy Paronychia of great toe of left foot Depressive disorder Low back pain with right-sided sciatica Pain of left thigh (06/01/17) Peptic reflux disease Shoulder pain (11/04/15) Chronic pain disorder (02/06/17) Surgical History History of cataract surgery Nuclear age-related cataract, right eye Cortical age-related cataract, right eye Cortical age-related cataract, left eye Nuclear age-related cataract, left eye Ligation of fallopian tube Hysterectomy, Laproscopic DUB; has cervix and ovaries HIP REPLACEMENT [facility] [place] [place]; PARTIAL Family History Mother , AGE 82 Diabetes Essential hypertension Heart disease Hyperlipidemia Cancer Father , AGE 80 Alcohol abuse Essential hypertension Heart disease Sister , AGE 45 Breast cancer Sister , AGE 51 Colon cancer Brother , 30 Neoplasm Son Essential hypertension Maternal Grandmother , 93 Breast cancer Son No problems noted. Daughter No problems noted. Other Family hx of colon cancer Family hx-breast malignancy Social History Smoking/Tobacco Use Status: Never Second Hand Exposure: Yes Smoking risk assessment performed?: Yes Alcohol Intake: current Alcohol Intake frequency: holidays/special occasions only Drug use: Never Substance use type: does not use Counseling given: No Counseling provided: none Caregiver/Support person: No Household members: spouse and children Housing: house Number of Children: 3 number of grandchildren: 7 Communication Needs: None Do you need help understanding health information?: Rarely Pets and animals: Yes Pets and animals: cat(s) and dog(s) Sexually active: No Do you think of yourself as: straight/heterosexual Current gender identity: female What is your relationship status?: How often do you talk on the phone with friends or family?: three or more times per week How often do you get together with friends or relatives?: once per week How often do you attend taoist or judaism services?: decline to answer Do you belong to any clubs or organized social groups?: no Panel score (0-1 are the most socially isolated patients): 2 What type of physical activity do you participate in: decline to answer Marlin/Scientology: [employer] Seatbelt use: always Helmet use: No Drive intox or ride w/intox residential driver: No Working smoke detector in home: Yes Carbon monox detector in home: Yes Firearms in home: Yes Firearms unloaded and locked: Yes Do you feel safe at home: Yes Do you feel safe in your relationship?: Yes Time Spent with Patient Time Spent with Patient: <45 minutes Time was spent: ordering medications,tests, procedures and counseling the patient
[2023-05-18 08:56] LABS: Anion Gap 9.8 mmol/L (3-11); BUN 29 mg/dL (7-18); CO2 25.2 mmol/L (21.0-32.0); CREATININE 1.2 mg/dL (0.55-1.02); Calcium 9.2 mg/dL (8.5-10.1); Chloride 97 mmol/L (98-107); Glucose 248 mg/dL (74-106); Potassium 4.1 mmol/L (3.5-5.1); Sodium 132 mmol/L (136-145)
== END 2023-05-18 11:10 | disposition home or self-care (01) ==
LOC: MS 16:59
PROVIDERS: Admitting Provider Student in an Organized Health Care Education/Training Program; PCP Nurse Practitioner Family; Visit Provider Student in an Organized Health Care Education/Training Program
PROC: (CPT 27447; principal; 2023-05-17 07:30)
DX: M17.12 Unilateral primary osteoarthritis, left knee (principal); M21.062 Valgus deformity, not elsewhere classified, left knee; I34.0 Nonrheumatic mitral (valve) insufficiency; E83.42 Hypomagnesemia; M79.7 Fibromyalgia; E66.9 Obesity, unspecified; E78.5 Hyperlipidemia, unspecified; D50.9 Iron deficiency anemia, unspecified; I10 Essential (primary) hypertension; K21.9 Gastro-esophageal reflux disease without esophagitis; I48.91 Unspecified atrial fibrillation; F31.81 Bipolar II disorder; E11.3299 Type 2 diabetes mellitus with mild nonproliferative diabetic retinopathy without macular edema, unspecified eye; M54.41 Lumbago with sciatica, right side; E11.65 Type 2 diabetes mellitus with hyperglycemia; Z79.4 Long term (current) use of insulin; Z79.84 Long term (current) use of oral hypoglycemic drugs
CPT/HCPCS: 27447; 20985; C1776; 00123; 36415; 76942; 80048; 97162; 97530; 83036; 99223; G0378; J0665; J0690; J1100; J1815; J2001; J2250; J2371; J2401; J2405; J2704; J3010

== ENCOUNTER 2023-05-29 15:54 | Outpatient (REF) | payer MEDICARE, SELFPAY ==
[2023-05-29 21:05] LABS: Abs Immature Grans 0.11 10^3/uL (0.0-0.06); Absolute Basophil Count 0.08 10^3/uL (0.0-0.2); Basophils % 0.6; Eosinophils % 2.8; HCT 26.2 % (36.0-46.0); HGB 8.5 g/dL (11.2-15.7); Immature Grans % 0.9; Lymphocytes % 10.4; MCH 28.5 pg (27.0-33.0); MCHC 32.4 % (32.0-36.0); MCV 88 fL (80-95); MPV 9.3 fL (8.0-11.0); Monocytes % 4.4; Neutrophils % 80.9; Platelet Count 417 10^3/uL (130-400); RBC 2.98 10^6/uL (3.93-5.22); RDW 13.8 % (11.7-14.6); RDW-SD 43.5 fL; WBC 12.64 10^3/uL (4.4-10.8)
[2023-05-29 21:06] LABS: Absolute Eosinophil Count 0.35 10^3/uL (0.0-0.7); Absolute Lymphocyte Count 1.31 10^3/uL (1.2-3.4); Absolute Monocyte Count 0.56 10^3/uL (0.1-0.8); Absolute Neutrophil Count 10.23 10^3/uL (1.2-6.7)
[2023-05-29 21:13] LABS: Anion Gap 8.3 mmol/L (3-11); BUN 15 mg/dL (7-18); CO2 25.7 mmol/L (21.0-32.0); Calcium 9.4 mg/dL (8.5-10.1); Chloride 103 mmol/L (98-107); Estimated GFR 60.61 (mL/min/1.73m2); Glucose 155 mg/dL (74-106); Magnesium 1.4 mg/dL (1.8-2.4); Potassium 4.9 mmol/L (3.5-5.1); Sodium 137 mmol/L (136-145)
== END 2023-05-29 15:55 | disposition home or self-care (01) ==
LOC: LBN 15:54
PROVIDERS: PCP Nurse Practitioner Family; Visit Provider Family Medicine
DX: I10 Essential (primary) hypertension; E83.42 Hypomagnesemia; D50.9 Iron deficiency anemia, unspecified
CPT/HCPCS: 80048; 85027; 83735; 85025

== ENCOUNTER 2023-06-01 12:16 | Outpatient (CLI) | payer MEDICARE, SELFPAY ==
--- NOTE | 2023-06-01 11:00 | DI.RAD_ITS ---
Exam(s) XR KNEE LT 1V XR STANDING ALIGNMENT EXAM: XR STANDING ALIGNMENT CLINICAL HISTORY: 1ST POST OP L TKA. TECHNIQUE: 2D digital imaging was performed. Standing AP views were performed from the pelvis throu gh the ankles. Lateral view left knee COMPARISON: CR XR STANDING ALIGNMENT from 02/17/2023 CR XR KNEE LT 1V from 02/17/2023 CR XR KNEE LT 1V from 06/01/2023 FINDINGS: BONES: No acute fracture is present. No bony destructive lesion is seen. Leg length discrepancy: No significant leg length discrepancy. JOINTS: Knees: A left total knee prosthesis has been placed since the prior exam. The alignment appe ars satisfactory. The right knee femoral tibial joint spaces are maintained. The ankle joints are unremarkable. Hips: No change right hip prosthesis. Left hip joint space is maintained. SOFT TISSUE: Chronic appearing calcifications at the medial right knee. Vascular calcifications. Bi lateral lower extremity edema, greater on the left. IMPRESSION: Status post placement of left total knee prosthesis. No significant leg length discrepancy. DATA REPOSITORY: RADIATION DOSE DELIVERED:
== END 2023-06-01 12:17 | disposition home or self-care (01) ==
LOC: DIORS 12:16
PROVIDERS: PCP Nurse Practitioner Family; Visit Provider Student in an Organized Health Care Education/Training Program
DX: Z96.652 Presence of left artificial knee joint (principal); Z47.1 Aftercare following joint replacement surgery
CPT/HCPCS: 73560; 77073; 93971

== ENCOUNTER → 2023-06-01 12:55 | Outpatient (CLI) | payer MEDICARE, SELFPAY ==
--- NOTE | 2023-06-01 12:45 | DI.US_ITS ---
Exam(s) US LOWER EXTREMITY VENOUS LT EXAM: US LOWER EXTREMITY VENOUS LT CLINICAL HISTORY: I82.402 Acute embolism /thrombosis of deep veins LLL.concern for LLE DVT. TECHNIQUE: Lower extremity venous ultrasound performed using grayscale, color-flow, and spectral Do ppler analysis. COMPARISON: No exams were available for comparison FINDINGS: The common femoral, femoral and popliteal veins demonstrate normal compressibility, augmentation, and color Doppler. The posterior tibial veins are patent. No saphenous vein thrombosis or other superfi cial venous thrombosis is seen. No hematoma or Martinez's cyst is seen. Lower leg edema. IMPRESSION: No evidence of DVT. DATA REPOSITORY:
== END ==
PROVIDERS: PCP Nurse Practitioner Family; Visit Provider Student in an Organized Health Care Education/Training Program
DX: Z47.1 Aftercare following joint replacement surgery; I82.402 Acute embolism and thrombosis of unspecified deep veins of left lower extremity
CPT/HCPCS: 93971

== ENCOUNTER 2023-06-23 13:32 | Outpatient (REF) | payer MEDICARE, SELFPAY ==
[2023-06-23 20:54] LABS: Abs Immature Grans 0.03 10^3/uL (0.0-0.06); Absolute Basophil Count 0.04 10^3/uL (0.0-0.2); Absolute Eosinophil Count 0.23 10^3/uL (0.0-0.7); Absolute Lymphocyte Count 1.68 10^3/uL (1.2-3.4); Absolute Monocyte Count 0.43 10^3/uL (0.1-0.8); Absolute Neutrophil Count 6.35 10^3/uL (1.2-6.7); Basophils % 0.5; Eosinophils % 2.6; HCT 31.3 % (36.0-46.0); HGB 10.5 g/dL (11.2-15.7); Immature Grans % 0.3; Lymphocytes % 19.2; MCH 27.1 pg (27.0-33.0); MCHC 33.5 % (32.0-36.0); MCV 81 fL (80-95); MPV 10.7 fL (8.0-11.0); Monocytes % 4.9; Neutrophils % 72.5; Platelet Count 316 10^3/uL (130-400); RBC 3.87 10^6/uL (3.93-5.22); RDW 13.6 % (11.7-14.6); RDW-SD 39.9 fL; WBC 8.76 10^3/uL (4.4-10.8)
[2023-06-23 21:01] LABS: Iron 30 ug/dL (50-170)
[2023-06-23 21:02] LABS: ALT 15 U/L (14-59); AST 16 U/L (15-37); Albumin 3.5 g/dL (3.4-5.0); Alkaline Phosphatase 115 U/L (46-116); Anion Gap 12.6 mmol/L (3-11); BUN 14 mg/dL (7-18); Bilirubin, Total 0.4 mg/dL (0.2-1.0); CO2 25.4 mmol/L (21.0-32.0); CREATININE 0.9 mg/dL (0.55-1.02); Calcium 9.6 mg/dL (8.5-10.1); Chloride 99 mmol/L (98-107); Estimated GFR 68.77 (mL/min/1.73m2); Glucose 136 mg/dL (74-106); Magnesium 1.2 mg/dL (1.8-2.4); Potassium 3.9 mmol/L (3.5-5.1); Sodium 137 mmol/L (136-145)
[2023-06-23 21:23] LABS: Hemoglobin A1C 6.4 % (<5.7)
== END 2023-06-23 13:33 | disposition home or self-care (01) ==
LOC: LBN 13:32
PROVIDERS: PCP Nurse Practitioner Family; Visit Provider Nurse Practitioner Family
DX: E83.42 Hypomagnesemia (principal); N18.2 Chronic kidney disease, stage 2 (mild); E78.2 Mixed hyperlipidemia; E11.22 Type 2 diabetes mellitus with diabetic chronic kidney disease; Z79.4 Long term (current) use of insulin
CPT/HCPCS: 80053; 83036; 83540; 83735; 85025

== ENCOUNTER → 2023-07-03 14:00 | Outpatient (BNVA) | payer MEDICARE, SELFPAY | PROVIDERS: PCP Nurse Practitioner Family; Visit Provider Student in an Organized Health Care Education/Training Program | DX: Z47.1 Aftercare following joint replacement surgery (principal); Z96.652 Presence of left artificial knee joint ==

== ENCOUNTER → 2023-07-31 14:47 | Outpatient (BNVA) | payer MEDICARE, SELFPAY | PROVIDERS: PCP Nurse Practitioner Family; Visit Provider Student in an Organized Health Care Education/Training Program | DX: Z47.1 Aftercare following joint replacement surgery (principal); Z96.652 Presence of left artificial knee joint ==

== ENCOUNTER → 2023-08-28 14:55 | Outpatient (BNVA) | payer MEDICARE, SELFPAY | PROVIDERS: PCP Nurse Practitioner Family; Visit Provider Student in an Organized Health Care Education/Training Program | DX: Z47.1 Aftercare following joint replacement surgery (principal); Z96.652 Presence of left artificial knee joint | CPT/HCPCS: 99213 ==

== ENCOUNTER 2023-12-07 12:30 | Outpatient (CLI) | payer MEDICARE, SELFPAY ==
[2023-12-07 12:37] LABS: Calculated LDL 71 mg/dL (<100); Cholesterol 168 mg/dL (<200); HDL Cholesterol 84 mg/dL (40-60); Triglyceride 69 mg/dL (<150)
[2023-12-07 13:01] LABS: NT-proBNP 963 pg/mL (<300)
== END 2023-12-07 12:31 | disposition home or self-care (01) ==
LOC: LOS 12:30
PROVIDERS: PCP Nurse Practitioner Family; Visit Provider Nurse Practitioner Family
DX: E78.5 Hyperlipidemia, unspecified (principal); I50.9 Heart failure, unspecified; Z51.81 Encounter for therapeutic drug level monitoring
CPT/HCPCS: 36415; 80061; 83880

== ENCOUNTER 2024-02-12 11:46 | Outpatient (CLI) | payer MEDICARE, SELFPAY ==
--- NOTE | 2024-02-12 09:36 | DI.RAD_ITS ---
Exam(s) XR KNEE RT 4V AP,LAT,LEON,PAT EXAM: XR KNEE RT 4V AP,LAT,LEON,PAT CLINICAL HISTORY: R knee pain. TECHNIQUE: 2D digital imaging was performed. Three views. COMPARISON: CR XR KNEE LT 1V from 06/01/2023 CR XR STANDING ALIGNMENT from 06/01/2023 FINDINGS: BONES: No acute fracture is present. No bony destructive lesion is seen. Aysn-pe-zzxporkn periarticul ar spurring throughout. JOINTS: Moderate narrowing of the lateral femoral tibial joint space. Moderate narrowing of lateral patellofemoral joint. Mild lateral patellar subluxation. A small joint effusion is seen. SOFT TISSUE: Chronic calcifications in the medial soft tissues. Vascular calcifications. IMPRESSION: Degenerative changes greatest of the lateral patellofemoral and lateral femoral tibial joints. DATA REPOSITORY: RADIATION DOSE DELIVERED:
== END 2024-02-12 11:47 | disposition home or self-care (01) ==
LOC: DIORS 11:48
PROVIDERS: PCP Nurse Practitioner Family; Referring Provider Nurse Practitioner Family; Visit Provider Physician Assistant
DX: M17.11 Unilateral primary osteoarthritis, right knee
CPT/HCPCS: 20610; J1010; 73564

== ENCOUNTER 2024-03-21 12:57 | Outpatient (REF) | payer MEDICARE, SELFPAY ==
[2024-03-21 21:25] LABS: HCT 31.9 % (36.0-46.0); MCH 28.8 pg (27.0-33.0); MCHC 34.5 % (32.0-36.0); MCV 84 fL (80-95); Platelet Count 231 10^3/uL (130-400); RBC 3.82 10^6/uL (3.93-5.22); RDW 13.3 % (11.7-14.6); RDW-SD 39.8 fL; WBC 8.77 10^3/uL (4.4-10.8)
[2024-03-21 21:39] LABS: Iron 25 ug/dL (50-170)
[2024-03-21 21:47] LABS: Hemoglobin A1C 7.3 % (<5.7)
[2024-03-21 21:51] LABS: ALT 15 U/L (14-59); AST 18 U/L (15-37); Albumin 3.2 g/dL (3.4-5.0); Alkaline Phosphatase 102 U/L (46-116); Anion Gap 11.7 mmol/L (3-11); BUN 22 mg/dL (7-18); Bilirubin, Total 0.51 mg/dL (0.2-1.0); CO2 24.3 mmol/L (21.0-32.0); CREATININE 1.2 mg/dL (0.55-1.02); Calcium 9.2 mg/dL (8.5-10.1); Chloride 100 mmol/L (98-107); Estimated GFR 48.39 (mL/min/1.73m2); Ferritin 34 ng/mL (8-252); Glucose 263 mg/dL (74-106); Magnesium 1.3 mg/dL (1.8-2.4); Potassium 4.3 mmol/L (3.5-5.1); Sodium 136 mmol/L (136-145); TSH (W/Ref FT4) 0.51 uIU/mL (0.36-3.74); Total Protein 6.5 g/dL (6.4-8.2)
== END 2024-03-21 12:58 | disposition home or self-care (01) ==
LOC: LBN 12:57
PROVIDERS: PCP Nurse Practitioner Family; Visit Provider Nurse Practitioner Family
DX: Z51.81 Encounter for therapeutic drug level monitoring; E11.9 Type 2 diabetes mellitus without complications; E78.2 Mixed hyperlipidemia; Z23 Encounter for immunization; D50.9 Iron deficiency anemia, unspecified; R00.2 Palpitations; I48.91 Unspecified atrial fibrillation; F41.1 Generalized anxiety disorder; R53.83 Other fatigue; F31.81 Bipolar II disorder
CPT/HCPCS: 80053; 85027; 82728; 83036; 83540; 83735; 84443

== ENCOUNTER 2024-11-18 09:27 | Outpatient (CLI) | payer MEDICARE, SELFPAY ==
--- NOTE | 2024-11-18 09:33 | DI.RAD_ITS ---
Exam(s) XR KNEE LT 3V AP,LAT,LEON EXAM: XR KNEE LT 3V AP,LAT,LOEN CLINICAL HISTORY: eval L knee pain. TECHNIQUE: 2D digital imaging was performed. COMPARISON: CR XR KNEE LT 1V from 06/01/2023 CR XR STANDING ALIGNMENT from 06/01/2023 CR XR KNEE RT 4V AP,LAT,LEON,PAT from 02/12/2024 FINDINGS: 3 views Position alignment of the components of prosthesis remain satisfactory. No evidence of fracture or loosening and no evidence of osteomyelitis. IMPRESSION: Stable satisfactory appearance DATA REPOSITORY: RADIATION DOSE DELIVERED:
== END 2024-11-18 09:28 | disposition home or self-care (01) ==
LOC: DIORS 09:27
PROVIDERS: PCP Nurse Practitioner Family; Referring Provider Nurse Practitioner Family; Visit Provider Student in an Organized Health Care Education/Training Program
DX: M70.52 Other bursitis of knee, left knee (principal); T84.84XA Pain due to internal orthopedic prosthetic devices, implants and grafts, initial encounter; Z96.652 Presence of left artificial knee joint; M17.11 Unilateral primary osteoarthritis, right knee
CPT/HCPCS: 99213; 73562

== ENCOUNTER 2024-12-17 03:44 | Outpatient (CLI) | payer MEDICARE, SELFPAY ==
[2024-12-17 12:25] LABS: HCT 31.2 % (36.0-46.0); HGB 10.5 g/dL (11.2-15.7); MCH 28.5 pg (27.0-33.0); MCHC 33.7 % (32.0-36.0); MCV 85 fL (80-95); MPV 10.1 fL (8.0-11.0); Platelet Count 183 10^3/uL (130-400); RBC 3.68 10^6/uL (3.93-5.22); RDW 13.3 % (11.7-14.6); RDW-SD 41.8 fL; WBC 6.87 10^3/uL (4.4-10.8)
[2024-12-17 12:40] LABS: Iron 42 ug/dL (50-170)
[2024-12-17 12:51] LABS: ALT 22 U/L (14-59); AST 20 U/L (15-37); Albumin 3.7 g/dL (3.4-5.0); Alkaline Phosphatase 86 U/L (46-116); Anion Gap 8.2 mmol/L (3-11); BUN 34 mg/dL (7-18); Bilirubin, Total 0.4 mg/dL (0.2-1.0); CO2 27.8 mmol/L (21.0-32.0); Calcium 10.3 mg/dL (8.5-10.1); Chloride 103 mmol/L (98-107); Estimated GFR 48.09 (mL/min/1.73m2); Ferritin 22 ng/mL (8-252); Glucose 223 mg/dL (74-106); Magnesium 2.2 mg/dL (1.8-2.4); Potassium 4.5 mmol/L (3.5-5.1); Sodium 139 mmol/L (136-145); Total Protein 6.9 g/dL (6.4-8.2)
[2024-12-17 13:12] LABS: Hemoglobin A1C 6.3 % (<5.7)
== END 2024-12-17 03:45 | disposition home or self-care (01) ==
LOC: LOS 03:45
PROVIDERS: PCP Nurse Practitioner Family; Visit Provider Nurse Practitioner Family
DX: E11.65 Type 2 diabetes mellitus with hyperglycemia (principal); D50.9 Iron deficiency anemia, unspecified; I48.91 Unspecified atrial fibrillation; E83.42 Hypomagnesemia
CPT/HCPCS: 36415; 80053; 85027; 81003; 82728; 83036; 83540; 83735

== ENCOUNTER 2025-01-15 12:36 | Outpatient (REF) | payer MEDICARE, SELFPAY ==
[2025-01-15 13:21] LABS: Glucose Negative (Negative)
[2025-01-15 13:31] LABS: WBC 0-2 HPF (0-5)
== END 2025-01-15 12:37 | disposition home or self-care (01) ==
LOC: LBN 12:36
PROVIDERS: PCP Nurse Practitioner Family; Visit Provider Nurse Practitioner Family
DX: N39.0 Urinary tract infection, site not specified (principal)
CPT/HCPCS: 81003; 81015; 87086